=== PATIENT | male | born 1960 | race Caucasian/White ===

== ENCOUNTER 2021-05-24 12:53 | Outpatient (REF) | payer OTHER, SELFPAY ==
[2021-05-24 13:49] LABS: MANUAL DIFF FLAG NO
[2021-05-24 13:53] LABS: Basophils Percent Auto 0.4 % (0-2); Eosinophils Absolute Auto 0.1 X10*3/uL (0.0-0.4); Eosinophils Percent Auto 1.3 % (0-4); Hematocrit 36.1 % (42-52); Hemoglobin 11.7 g/dl (14.0-18.0); Imm Gran Pct Auto 1.3 % (0.0-0.4); Lymphocytes Percent Auto 25.2 % (20-40); Mean Corpuscular HGB Conc 32.4 g/dl (31.0-36.0); Mean Corpuscular Hemoglobin 28.1 pg (27.0-33.0); Mean Corpuscular Volume 86.6 fL (80-98); Mean Platelet Volume 9.9 fL (9.4-12.4); Monocytes Absolute Auto 0.7 X10*3/uL (0.1-1.2); Monocytes Percent Auto 8.9 % (2-11); Neutrophils Absolute Auto 4.9 X10*3/uL (2.0-8.3); Neutrophils Percent Auto 62.9 % (45-73); Platelet Count 362 X10*3/uL (160-400); Red Blood Count 4.17 X10*6/uL (4.60-5.80); Red Cell Distribution Width 14.1 % (11.0-16.0); White Blood Count 7.8 X10*3/uL (4.8-10.8)
[2021-05-24 14:03] LABS: Estimated Average Glucose 283 mg/dL; Hemoglobin A1c % 11.5 %
[2021-05-24 14:23] LABS: Amphetamine Screen Urine Not Detected (Not Detect); Barbiturates, Urine Not Detected (Not Detect); Benzodiazepines Screen Urine Not Detected (Not Detect); Cannabinoid Screen Urine POSITIVE (Not Detect); Cocaine Screen Urine Not Detected (Not Detect); Fentanyl, urine Not Detected (Not Detect); Opiate Screen Urine Not Detected (Not Detect); Phencyclidine Screen Urine Not Detected (Not Detect)
[2021-05-24 14:30] LABS: Alanine Aminotransferase 41 U/L (0-40); Albumin Level 3.4 g/dL (3.5-5.0); Alkaline Phosphatase 114 U/L (39-117); Anion Gap 14 (12-20); Aspartate Amino Transferase 42 U/L (5-37); Bilirubin Total 0.3 mg/dL (0.0-1.0); Blood Urea Nitrogen 37 mg/dL (9-16); Calcium 9.4 mg/dL (8.4-10.2); Carbon Dioxide 24 mmol/L (22-29); Chloride 105 mmol/L (96-108); Estimated Glomerular Filt Rate 36; Glucose Fasting 148 mg/dL (60-99); Potassium 4.8 mmol/L (3.3-5.1); Sodium 138 mmol/L (135-145); Total Protein 6.7 g/dL (6.5-8.0)
[2021-05-24 14:31] LABS: Creatinine Urine 142.43 mg/dL
[2021-05-24 14:50] LABS: TSH reflex Free T4 1.61 uIU/mL (0.32-4.0)
== END 2021-05-24 12:54 | disposition home or self-care (01) ==
LOC: HO.HMGCLDS 12:53
PROVIDERS: PCP Internal Medicine; Visit Provider Internal Medicine
DX: E11.65 Type 2 diabetes mellitus with hyperglycemia (principal); R76.8 Other specified abnormal immunological findings in serum; I10 Essential (primary) hypertension; F14.10 Cocaine abuse, uncomplicated; F17.200 Nicotine dependence, unspecified, uncomplicated
CPT/HCPCS: 80048; 80053; 80307; 82043; 83036; 84443; 85025

== ENCOUNTER 2022-12-07 00:17 | Inpatient (IN) | payer OTHER, MEDICAID, SELFPAY ==
[2022-12-07] VITALS (15 sets, daily range): BP systolic 144–220; BP diastolic 64–121; PULSE 65–104; RESP 14–28; TEMP 36.6–37.2; O2SAT 90–98; BMI 22.1; BMI 23.9
--- NOTE | 2022-12-07 | ECG_ITS ---
Test Reason : HYPERTENSION Blood Pressure : / mmHG Vent. Rate : 102 BPM Atrial Rate : 102 BPM P-R Int : 202 ms QRS Dur : 130 ms QT Int : 382 ms P-R-T Axes : 054 -40 115 degrees QTc Int : 497 ms Sinus tachycardia Left axis deviation Right bundle branch block Septal infarct , age undetermined T wave abnormality, consider lateral ischemia Abnormal ECG No previous ECGs available Referred By: Raad Adkins Electronically Signed By:VANCE SERRANO
--- NOTE | ~2022-12-07 | XR_ITS ---
EXAMINATION: XR CHEST CLINICAL INFORMATION: Shortness of breath COMPARISON: None TECHNIQUE: Frontal view of the chest was obtained. FINDINGS: Diffuse bilateral streaky and hazy airspace opacities. Trace bilateral pleural effusions, slightly larger on the left. No pneumothorax. Normal heart size. Pulmonary venous congestion. No acute osseous abnormalities. XR/XR chest 1V IMPRESSION: * Diffuse bilateral streaky and hazy airspace opacities could be compatible with an atypical pneumonitis and/or pulmonary edema * Trace bilateral pleural effusions.
--- NOTE | ~2022-12-07 | IR_ITS ---
PROCEDURE: IR INSERTION OF TUNNEL CATHETER CLINICAL INFORMATION: Renal insufficiency. Needs instant renal dialysis. COMPARISON: None. TECHNIQUE: Following explaining ultrasound fluoroscopy-guided placement of a tunneled right permacatheter procedure, benefits and risks, a written consent was obtained. Patient was placed supine and preliminary ultrasound was performed through the right anterior neck. An optimal site was selected and marked on the skin. Marked site was infiltrated with 1% lidocaine. Through a small skin wall incision an ultrasound guidance needle was inserted from the right neck through the right supraclavicular fossa into the right subclavian vein. After observing venous return a thin guidewire was advanced into the IVC through the needle. The needle was withdrawn and a 5 Vietnamese dilator was placed. The dilator and the guidewire were anchored to the skin by hemostats. 1% lidocaine was then inserted through the anterior chest wall approximately 1 gauze length away from the neck incision. A small skin incision was performed. 1% lidocaine and epinephrine was injected in combination from the anterior chest wall incision to the right neck incision. A tunneler attached to the catheter was advanced through the anterior chest wall incision and subcutaneous is tunneled with a tunneler to the right anterior neck wall incision. The entire unit was then pulled through the right anterior neck incision. The cuff and the catheter lies within the anterior chest wall subcutaneous tissue. The 5 Vietnamese dilator and guidewire was removed and a 0.035 J-wire was inserted into the IVC. The catheter was was removed. A 6.6 Vietnamese dilator with sheath was inserted over the wire. The dilator was and guidewires were removed. The blind-ending catheter was then inserted through the peel-away sheath into the SVC under fluoroscopy. Both ports of the catheter were flushed with heparinized saline. A single image was obtained documenting position of catheter in the SVC. Hemostasis was achieved at puncture site. The area was cleaned and draped in the usual sterile manner. Patient tolerated procedure extremely well. All elements of maximal sterile barrier technique followed including use of cap, mask, sterile gown, sterile gloves, a sterile full body drape and hand hygiene. Also followed skin preparation with 2% chlorhexidine for cutaneous antisepsis, and sterile ultrasound preparation with sterile gel and probe cover when applicable. FINDINGS: On preliminary ultrasound imaging there is widely patent but tortuous tubular vein. The left subclavian vein was not visualized. IR/IR cvc insert central tunnel IMPRESSION: Successful ultrasound fluoroscopy-guided placement of a right permacatheter with its tip in SVC ready for use.
--- NOTE | ~2022-12-07 | CT_ITS ---
EXAMINATION: CT ABDOMEN AND PELVIS WITHOUT CONTRAST CLINICAL INFORMATION: Acute renal failure COMPARISON: None TECHNIQUE: Multidetector volumetric imaging was performed from the superior aspect of the liver through the pubic symphysis. Sagittal and coronal reformatted images were obtained on the technologist's workstation. This CT examination was performed using dose optimization techniques as appropriate, variously including the following: *Automated exposure control *Adjustment of mA and/or kV according to patient size (this includes techniques or standardized protocols for targeted exams where dose is matched to indication/reason for exam; i.e. extremities or head) *Use of iterative reconstruction technique DLP: 505 mGy-cm FINDINGS: IMAGES THORAX: Small bilateral pleural effusions. Interstitial pulmonary edema. Anemia evident. LIVER, GALLBLADDER, AND BILIARY TREE: The liver is normal in size, shape, and attenuation. No focal hepatic lesion or biliary ductal dilatation is present. Cholelithiasis suspected. No gallbladder distention or pericholecystic inflammation. PANCREAS: Unremarkable. SPLEEN: Unremarkable. ADRENAL GLANDS: Unremarkable. KIDNEYS AND URETERS: The kidneys are normal in size, shape, and attenuation. No hydronephrosis, hydroureter, or calculi seen. No perinephric stranding. BLADDER: Unremarkable. GASTROINTESTINAL TRACT: Scattered left colonic diverticula. No evidence of diverticulitis. Normal appendix. Stomach and small bowel unremarkable. ABDOMINAL WALL: Small fat-containing umbilical hernia. Anasarca. LYMPH NODES: Normal. VASCULAR: Aorta mildly atherosclerotic but normal caliber. There is a spontaneous splenorenal shunt. PELVIC VISCERA: Unremarkable. OSSEOUS STRUCTURES: No acute or suspicious osseous abnormalities. Severe discogenic degenerative disease at L4-L5 and L5-S1 with endplate sclerosis and endplate osteophytes. CT/CT abdomen pelvis wo IV con IMPRESSION: * No urinary calculi or hydronephrosis. * Cholelithiasis. * Scattered left colonic diverticula without evidence of diverticulitis. * Anasarca with small bilateral pleural effusions and interstitial pulmonary edema. * Incidental splenorenal shunt. The liver is not frankly cirrhotic.
--- NOTE | 2022-12-07 00:24 | ED.SOB ---
HPI - SOB/Dyspnea General Chief Complaint: Dyspnea Stated Complaint: SOB for 2hours Time Seen by Provider: 12/07/22 00:24 Source: patient and EMS Mode of arrival: EMS Limitations: no limitations History of Present Illness HPI Narrative: Patient 61 years old with history of cocaine abuse( last use 9 months ago) insulin-requiring diabetic, hypertension hyperlipidemia hepatitis-C chronic renal disease was admitted at [facility] 11/05/21 discharged on 11/09/21 for altered mental status due to opiate overdose . Patient comes here for increased shortness of breath 4 hours prior to arrival patient stopped taking his medication for last 3 days. On arrival patient's blood pressure was 220/121 heart rate 104 saturating 95% on room air. No chest pain or palpitation no headache, patient has not used any drugs for last 9 months Related Data Home Medications Medication Instructions Recorded Confirmed blood sugar diagnostic #10 ea 09/21/20 06/22/21 pen needle, diabetic 32 gauge x #50 ea 09/21/20 01/03/22 1/ amlodipine 10 mg tablet 1 tab PO DAILY 12/07/22 12/07/22 aspirin 81 mg tablet,delayed 1 tab PO DAILY 12/07/22 12/07/22 release atorvastatin 40 mg tablet 1 tab PO BEDTIME 12/07/22 12/07/22 cholecalciferol (vitamin D3) 50 1 cap PO DAILY 12/07/22 12/07/22 mcg (2,000 unit) capsule famotidine 20 mg tablet 1 tab PO DAILY 12/07/22 12/07/22 gabapentin 300 mg capsule 1 cap PO BEDTIME 12/07/22 12/07/22 hydrochlorothiazide 25 mg tablet 1 tab PO DAILY 12/07/22 12/07/22 insulin aspart U-100 100 unit/mL subcut 12/07/22 (3 mL) subcutaneous pen insulin glargine 100 unit/mL (3 50 unit subcut DAILY 12/07/22 12/07/22 mL) subcutaneous pen (Lantus Solostar U-100 Insulin) mirtazapine 15 mg tablet 1 tab PO BEDTIME 12/07/22 12/07/22 Previous Rx's Medication Instructions Recorded alcohol swabs 1 pad topical .COMPLEX #200 ea 12/09/20 lancets 28 gauge #100 ea 12/09/20 pen needle, diabetic 33 gauge x #100 ea 07/23/21 5/16 (Comfort EZ Pen [place]) blood sugar diagnostic (FreeStyle #100 ea 06/16/21 Test strips) blood-glucose meter (FreeStyle #1 ea 06/17/21 Lite Meter kit) acetaminophen 500 mg tablet 500 mg PO TID PRN fever or pain 90 01/03/22 (Tylenol Extra Strength) days #90 tabs amlodipine 10 mg tablet 10 mg PO DAILY 90 days #90 tabs 01/03/22 aspirin 81 mg tablet,delayed 81 mg PO DAILY 90 days #90 tabs 01/03/22 release atorvastatin 40 mg tablet 40 mg PO BEDTIME 90 days #90 tabs 01/03/22 ferrous sulfate 325 mg (65 mg 325 mg PO DAILY 90 days #90 tabs 01/03/22 iron) tablet,delayed release gabapentin 300 mg capsule 300 mg PO BEDTIME 90 days #90 caps 01/03/22 insulin glargine 100 unit/mL (3 40 unit (0.4 mL) subcut .at 01/03/22 mL) subcutaneous pen (Lantus bedtime 90 days #15 mL Solostar U-100 Insulin) meclizine 25 mg tablet 25 mg PO BID-TID PRN dizziness 90 01/03/22 days #90 tabs quetiapine 25 mg tablet See Rx Instructions PO BEDTIME 30 01/03/22 days #90 tabs Shower chair #1 ea 01/05/22 Shower grab bars #2 ea 01/05/22 insulin aspart U-100 100 unit/mL 1 sliding scale dose subcut TID 02/14/22 (3 mL) subcutaneous pen #15 mL pen needle, diabetic 31 gauge x #100 ea 02/14/22/ (Comfort EZ Pen [place]) insulin aspart U-100 100 unit/mL 1 sliding scale dose subcut TID 90 03/01/22 subcutaneous solution (Novo days #10 mL U-100 Insulin aspart) Allergies Allergy/AdvReac Type Severity Reaction Status Date / Time No Known Allergies Allergy Verified 12/07/22 01:11 Review of Systems Review of Systems: Constitutional : No Weight loss, No Fever, No Chills ENT/Mouth : No sore throat, No Rhinorrhea Eyes: No Eye Pain, No Swelling Cardiovascular : No Chest Pain, no palpitations Respiratory : No Cough, No Sputum, ++ shortness of breath Gastrointestinal : no Nausea, No Vomiting, No Diarrhea, No abdominal Pain, no black stools Genitourinary : No Dysuria, No Urinary Frequency Musculoskeletal : No joint pain, No Myalgias, No Joint Swelling Skin : No Skin Lesions, No rash Neuro : No Weakness, No Numbness, No Dizziness, No Headache Psych : No Anxiety/Panic, No Depression Heme/Lymph: No Bruising, No Lymphadenopathy Endocrine : No Polyuria, No Polydipsia All other systems reviewed and are negative Yes all other systems are reviewed and are negative [facility] Past Medical History Medical History Cocaine abuse Diabetes 1.5, 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, chronic Hepatitis C antibody test positive Hypertension, essential Nicotine addiction Type 2 diabetes mellitus Social History Social History Household Members: None Housing: Apartment Housing Other:: fpc Do you presently have visiting nurse or other home services: Yes Alcohol intake: former Patient Tobacco Use Status: Former Tobacco user Tobacco use type: Cigarette Cigarettes Per Day: 6 Smoked in Last 30 Days: No e-Cigarette/Vaping Use: Never Used Use of substances other than those prescribed or required for medical reasons: Yes Substance Use Type: Marijuana Substance Use Frequency: Daily Last Used Substance: Days (ago) Last Used Substance Other:: yesterday last smoked marijuana Currently Displaying Signs/Symptoms of Drug Intoxication Withdrawal: No Any prior treatment program specific to substance use: No Have you been hit, kicked, punched, or otherwise hurt by someone within the past year? If so, by whom?: No Do you feel safe in your current relationship?: No Current Relationship Is there a partner from a previous relationship who is making you feel unsafe now?: No Are you made to feel afraid or neglected: No Advance Directives: No Do you have thoughts of harming others: None Do you have a plan to hurt others: No Plan Recently lost weight without trying: Unsure Eating poorly because of decreased appetite: No Nutrition Risks: No Nutritional Risk Poor oral hygiene: No Current occupational status: disabled Physical Exam Vital Signs: Vital Signs: Last Vital Signs Temp 98.1 F 12/07/22 04:00 Pulse 73 12/07/22 04:00 Resp 20 12/07/22 04:00 BP 192/97 H 12/07/22 04:00 Pulse Ox 97 12/07/22 04:00 O2 Del Method 12/07/22 04:00 O2 Flow Rate 1 12/07/22 02:24 BMI result Body Mass Index 22.1 Appearance: Alert. Oriented X3. No acute distress. Eyes: PERRLA, No Nystagmus pallor++ ENT: Pharynx normal. Oral Mucosa moist Neck: Normal inspection. Neck supple. CVS: Normal heart rate and rhythm. Pulses normal. Respiratory: No respiratory distress. Equal air entry bilateral, bilateral rhonchi with crackles at bases Abdomen: Soft and nontender. Bowel sounds are present, no mass palpable, no CVA tenderness Skin: Skin warm and dry. Normal skin color. Normal skin turgor. Extremities: No lower extremity edema. No calf tenderness Neuro: Oriented X 3. No motor deficit. No sensory deficit.No cerebellar signs , cranial nerves II-XII intact Medications Administered Generic Name Dose Route Start Last Admin Trade Name Freq PRN Reason Stop Dose Admin Heparin Sodium (Porcine) 5,000 unit 12/07/22 06:00 12/07/22 04:45 Heparin Sodium,Porcine 5,000 Unit/Ml Vial SUBCUT 5,000 unit Q8H PHILL Administration Labetalol HCl 10 mg 12/07/22 02:37 12/07/22 02:46 Labetalol Hcl 100 Mg/20 Ml Vial IVPUSH 10 mg Q4H PRN Administration BP>170/90 Discontinued Medications Generic Name Dose Route Start Last Admin Trade Name Freq PRN Reason Stop Dose Admin Furosemide 40 mg 12/07/22 00:41 12/07/22 00:48 Furosemide 40 Mg/4 Ml Vial IVPUSH 12/07/22 00:42 40 mg ONCE ONE Administration Protocol Furosemide 60 mg 12/07/22 01:42 12/07/22 01:55 Furosemide 100 Mg/10 Ml Vial IVPUSH 12/07/22 01:43 60 mg ONCE ONE Administration Protocol Labetalol HCl 20 mg 12/07/22 00:39 12/07/22 00:55 Labetalol Hcl 100 Mg/20 Ml Vial IVPUSH 12/07/22 00:40 20 mg ONCE ONE Administration Sodium Bicarbonate 50 meq 12/07/22 01:44 12/07/22 02:04 Sodium Bicarbonate 8.4% 50 Meq/50 Ml Syringe IVPUSH 12/07/22 01:45 50 meq ONCE ONE Administration Medical Decision Making Medical Decision Making [facility] Narrative: Patient with accelerated hypertension with INO on history of CKD noncompliant to his medications came here for acute shortness of breath clinically with pulmonary edema blood pressure improved after IV labetalol and IV Lasix patient urinated in the ER will admit for further workup Differential Diagnosis INO/CKD/pulmonary edema/pneumonia/anemia/ACS Consult Healthcare Provider Management of the patient was discussed with: Hospitalist Lab Data [facility] Lab Attestation statement: I reviewed the patient's lab results. 12/07/22 00:37 12/07/22 00:37 Labs: Lab Results 12/07/22 12/07/22 12/07/22 Range/Units 00:37 00:37 00:37 WBC 9.0 (4.8-10.8) X10*3/uL RBC 3.65 L (4.60-5.80) X10*6/uL Hgb 10.4 L (14.0-18.0) g/dl Hct 31.9 L (42.0-52.0) % MCV 87.4 (80.0-98.0) fL MCH 28.5 (27.0-33.0) pg MCHC 32.6 (31.0-36.0) g/dl RDW 16.7 H (11.0-16.0) % Plt Count 305 (160-400) X10*3/uL MPV 9.9 (9.4-12.4) fL Immature Gran % (Auto) 0.8 H (0.0-0.4) % Neut % (Auto) 63.8 (45-73) % Lymph % (Auto) 24.6 (20-40) % Chase % (Auto) 8.2 (2-11) % Eos % (Auto) 2.3 (0-4) % Baso % (Auto) 0.3 (0-2) % Lymph # (Auto) 2.2 (1.2-4.9) X10*3/uL Chase # (Auto) 0.7 (0.1-1.2) X10*3/uL Eos # (Auto) 0.2 (0.0-0.4) X10*3/uL Baso # (Auto) 0.0 (0.0-0.2) X10*3/uL Abs Immat Gran (auto) 0.07 H (0.00-0.03) X10*3/uL Absolute Neuts (auto) 5.7 (2.0-8.3) x10*3/uL Absolute Nucleated RBC 0.000 (0.0-0.012) X10*3/uL Nucleated RBC % (auto) 0.0 (0.0-0.2) /100WBC PT (10.0-13.1) SEC INR (0.9-1.1) APTT (26.0-36.4) SEC Sodium 139 (135-145) mmol/L Potassium 5.4 H (3.3-5.1) mmol/L Chloride 112 H (96-108) mmol/L Carbon Dioxide 15 L (22-29) mmol/L Anion Gap 17 (12-20) BUN 64 H (9-16) mg/dL Creatinine 10.12 H* (0.5-1.4) mg/dL Estim Creat Clear Calc 7.1 Estimated GFR 5 Random Glucose 166 H (60-115) mg/dL Calcium 7.8 L D (8.4-10.2) mg/dL Total Bilirubin 0.4 (0.0-1.0) mg/dL AST 22 (5-37) U/L ALT 17 (0-40) U/L Alkaline Phosphatase 134 H (39-117) U/L Troponin I High Sens (<3.5-35.0) ng/L B-Natriuretic Peptide (<100) pg/mL Total Protein 5.8 L (6.5-8.0) g/dL Albumin 2.5 L (3.5-5.0) g/dL Influenza Type A (PCR) NEGATIVE (Negative) Influenza Type B (PCR) NEGATIVE (Negative) RSV RNA Qual (PCR) NEGATIVE (Negative) SARS-CoV-2 RNA (RT-PCR) NEGATIVE (Negative) 12/07/22 12/07/22 12/07/22 Range/Units 00:40 00:40 00:40 WBC (4.8-10.8) X10*3/uL RBC (4.60-5.80) X10*6/uL Hgb (14.0-18.0) g/dl Hct (42.0-52.0) % MCV (80.0-98.0) fL MCH (27.0-33.0) pg MCHC (31.0-36.0) g/dl RDW (11.0-16.0) % Plt Count (160-400) X10*3/uL MPV (9.4-12.4) fL Immature Gran % (Auto) (0.0-0.4) % Neut % (Auto) (45-73) % Lymph % (Auto) (20-40) % Chase % (Auto) (2-11) % Eos % (Auto) (0-4) % Baso % (Auto) (0-2) % Lymph # (Auto) (1.2-4.9) X10*3/uL Chase # (Auto) (0.1-1.2) X10*3/uL Eos # (Auto) (0.0-0.4) X10*3/uL Baso # (Auto) (0.0-0.2) X10*3/uL Abs Immat Gran (auto) (0.00-0.03) X10*3/uL Absolute Neuts (auto) (2.0-8.3) x10*3/uL Absolute Nucleated RBC (0.0-0.012) X10*3/uL Nucleated RBC % (auto) (0.0-0.2) /100WBC PT 9.4 L (10.0-13.1) SEC INR 0.8 L (0.9-1.1) APTT 34.0 (26.0-36.4) SEC Sodium (135-145) mmol/L Potassium (3.3-5.1) mmol/L Chloride (96-108) mmol/L Carbon Dioxide (22-29) mmol/L Anion Gap (12-20) BUN (9-16) mg/dL Creatinine (0.5-1.4) mg/dL Estim Creat Clear Calc Estimated GFR Random Glucose (60-115) mg/dL Calcium (8.4-10.2) mg/dL Total Bilirubin (0.0-1.0) mg/dL AST (5-37) U/L ALT (0-40) U/L Alkaline Phosphatase (39-117) U/L Troponin I High Sens 43.7 H (<3.5-35.0) ng/L B-Natriuretic Peptide 2900 H (<100) pg/mL Total Protein (6.5-8.0) g/dL Albumin (3.5-5.0) g/dL Influenza Type A (PCR) (Negative) Influenza Type B (PCR) (Negative) RSV RNA Qual (PCR) (Negative) SARS-CoV-2 RNA (RT-PCR) (Negative) Independent Interpretation I performed an independent interpretation of an: EKG Interpretation: Sinus tachycardia heart rate 102 beats per minute with left axis deviation right bundle-branch block poor progression of R waves T inversion in 1 and aVL External Record Review External record reviewed: Inpatient record Admitted to [facility] 11/05-11/09 with INO/88 creatinine of 2.4 on 11/09/2021 with history of opiate overdose Critical Care Time Critical Care Time Critical Care Time: Yes Total Critical Care Time: 65 Attestation: The patient was critically ill with a high probability of imminent or life threatening deterioration. I spent greater than 70 minutes of discontinuous time evaluating the patient,delivering critical care at the bedside, discussing and evaluating pertinent data with consultants. Critical care time does not include time spent performing separately billable procedures or teaching. Total time spent performing critical care was 65 minutes. Discharge Plan Discharge Clinical Impression: Acute renal failure, Congestive heart failure, Metabolic acidosis, Accelerated essential hypertension Patient Disposition: Admitted As Inpatient Interventions: Admission Worksheet (ED) Last Done: 12/07/22 04:04 Discharge Date/Time: 12/07/22 04:07
[2022-12-07 00:45] LABS: Basophils Percent Auto 0.3 % (0-2); Eosinophils Absolute Auto 0.2 X10*3/uL (0.0-0.4); Eosinophils Percent Auto 2.3 % (0-4); Hematocrit 31.9 % (42.0-52.0); Hemoglobin 10.4 g/dl (14.0-18.0); Imm Gran Abs Auto 0.07 X10*3/uL (0.00-0.03); Imm Gran Pct Auto 0.8 % (0.0-0.4); Lymphocytes Absolute Auto 2.2 X10*3/uL (1.2-4.9); Lymphocytes Percent Auto 24.6 % (20-40); MANUAL DIFF FLAG NO; Mean Corpuscular HGB Conc 32.6 g/dl (31.0-36.0); Mean Corpuscular Hemoglobin 28.5 pg (27.0-33.0); Mean Corpuscular Volume 87.4 fL (80.0-98.0); Mean Platelet Volume 9.9 fL (9.4-12.4); Monocytes Absolute Auto 0.7 X10*3/uL (0.1-1.2); Monocytes Percent Auto 8.2 % (2-11); Neutrophils Absolute Auto 5.7 x10*3/uL (2.0-8.3); Neutrophils Percent Auto 63.8 % (45-73); Platelet Count 305 X10*3/uL (160-400); Red Blood Count 3.65 X10*6/uL (4.60-5.80); Red Cell Distribution Width 16.7 % (11.0-16.0)
[2022-12-07] MEDS: Furosemide 40 MG/4 ML VIAL IVPUSH (00:48)
[2022-12-07 00:53] LABS: INTERNATIONAL NORM RATIO 0.8 (0.9-1.1); Prothrombin Time 9.4 SEC (10.0-13.1)
[2022-12-07] MEDS: Labetalol HCL 100 MG/20 ML VIAL 20 MG IVPUSH (00:55)
[2022-12-07 01:06] LABS: B Type Natriuretic Peptide 2900 pg/mL (<100)
[2022-12-07 01:09] LABS: Troponin-I High Sensitivity 43.7 ng/L (<3.5-35.0)
[2022-12-07 01:16] LABS: Alanine Aminotransferase 17 U/L (0-40); Albumin Level 2.5 g/dL (3.5-5.0); Alkaline Phosphatase 134 U/L (39-117); Anion Gap 17 (12-20); Aspartate Amino Transferase 22 U/L (5-37); Bilirubin Total 0.4 mg/dL (0.0-1.0); Blood Urea Nitrogen 64 mg/dL (9-16); Calcium 7.8 mg/dL (8.4-10.2); Carbon Dioxide 15 mmol/L (22-29); Chloride 112 mmol/L (96-108); Creatinine Clr Calc Pharmacy 7.1; Estimated Glomerular Filt Rate 5; Glucose Random 166 mg/dL (60-115); Potassium 5.4 mmol/L (3.3-5.1); Sodium 139 mmol/L (135-145); Total Protein 5.8 g/dL (6.5-8.0)
--- NOTE | 2022-12-07 01:27 | PC.NURSE ---
Addendum entered by Angella Llanes 12/07/22 04:07: Pt on RA sat o2 96%. Original Note: Pt A&Ox4, denies any pain. Pt reports increase SOB since 8pm last night, worsening with exertion. ABD accessory muscle use noted. Lung expansion equal, mouth breathing. Pt reports productive cough. Lung sounds fine crackles with some wheezing noted bilaterally. Pt placed on monitor, EKG obtained. IV line started, blood work collected and sent to lab. Placed on 1L via NC, sat o2 94-96%. Skin warm and dry.
[2022-12-07 01:46] LABS: Influenza A PCR NEGATIVE (Negative); Influenza B PCR NEGATIVE (Negative); Resp Syncy Virus RNA Qual PCR NEGATIVE (Negative); SARS COV2 PCR INHOUSE NEGATIVE (Negative)
[2022-12-07] MEDS: Furosemide 100 MG/10 ML VIAL 60 MG IVPUSH (01:55)
[2022-12-07] MEDS: Sodium Bicarbonate 8.4% 50 MEQ/50 ML SYRINGE IVPUSH (02:04)
[2022-12-07 02:33] LABS: Appearance Urine Cloudy; Color Urine Yellow; Glucose Urine UA 500 mg/dL (Negative); Leukocyte Esterase Urine Negative (Negative); Nitrite Urine Negative (Negative); Specific Gravity - Urine 1.015 (1.005-1.025); UMIC TRIGGER UACC YES; Urine Blood Small (1+) (Negative); Urine Ketones Negative (Negative); Urine Protein >=1000 (4+) mg/dL (Neg-Trace)
[2022-12-07] MEDS: Labetalol HCL 100 MG/20 ML VIAL 10 MG IVPUSH ×2 (02:46→11:40)
[2022-12-07 03:01] LABS: Bacteria Urine Trace (None Seen); WBC Urine 0-5 /HPF (0-5)
--- NOTE | 2022-12-07 03:06 | P.HPHOSP_ITS ---
History of Present Illness Date of Service: 12/07/22 Chief Complaint: SOB 62-year-old male with a past medical history of hypertension, hyperlipidemia, diabetes, polysubstance abuse, history of hep C, CKD into the hospital today with a chief complaint of shortness of breath. Patient mentioned that for the past couple days he has been having shortness of breath especially on exertion. Also has orthopnea. Denies any chest pain or palpitations. Denies any fever chills cough or sputum production. Mentioned that he had recently seen the primary care and had blood work done and noted to have worsening kidney function and was suggested he might need dialysis but he mentions that he does not to want to go for dialysis. Currently denies any abdominal pain nausea vomiting or diarrhea. Mentioned that he still makes urine. Denies any headaches numbness tingling. Patient denies any leg pains or falls. Review of all other systems is negative except mentioned above ER course: Per ER team, patient noted to have significantly short of breath, placed on supplemental oxygen, not in respiratory distress. Breathing comfortably on speaks in full sentences. Noted to have bilateral crackles concerning for fluid overload. Patient was given Lasix in the ER. On labs noted to have elevated creatinine of 10 compared to prior values of creatinine 1.9 about 2 years ago; but patient does report that he had recent work blood work at [facility] with worsening kidney function. Also noted a mild acidosis with a serum bicarb of 15; patient was given bicarb 1 ampule in the ER. 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, chronic Hepatitis C antibody test positive Hypertension, essential Nicotine addiction Type 2 diabetes mellitus Social History Housing: Homeless Housing Other:: snf Alcohol intake: former Patient Tobacco Use Status: Former Tobacco user Tobacco use type: Cigarette Cigarettes Per Day: 6 Smoked in Last 30 Days: No e-Cigarette/Vaping Use: Never Used Use of substances other than those prescribed or required for medical reasons: Yes Substance Use Type: Marijuana Substance Use Frequency: Daily Advance Directives: No Nutrition Risks: No Nutritional Risk Current occupational status: disabled Meds Allergies Allergy/AdvReac Type Severity Reaction Status Date / Time No Known Allergies Allergy Verified 12/07/22 01:11 Active Medications: Current Medications Acetaminophen (Acetaminophen 325 Mg Tablet) 650 mg PO Q6H PRN PRN Reason: Pain, Mild (Pain Scale 1-3) Amlodipine Besylate (Amlodipine Besylate 10 Mg Tablet) 10 mg PO DAILY [facility]; Protocol Aspirin (Aspirin 81 Mg Tab.Chew) 81 mg PO DAILY [facility] Atorvastatin Calcium (Atorvastatin Calcium 40 Mg Tablet) 40 mg PO BEDTIME [facility] Glucose (Glucose Gel 15 Gm Gel..Gram.) 15 gm PO Q15M PRN; Protocol PRN Reason: per Hypoglycemia Standing Ord. Heparin Sodium (Porcine) (Heparin Sodium,Porcine 5,000 Unit/Ml Vial) 5,000 unit SUBCUT Q8H [facility] Dextrose (D10) 250 mls @ 750 mls/hr IV Q15M PRN; Protocol PRN Reason: per Hypoglycemia Standing Ord. Insulin Human Lispro (Insulin Lispro 100 Unit/Ml 3 Ml Vial) 0 unit SUBCUT QIDACHS [facility]; Protocol Labetalol HCl (Labetalol Hcl 100 Mg/20 Ml Vial) 10 mg IVPUSH Q4H PRN PRN Reason: BP>170/90 Last Admin: 12/07/22 02:46 Dose: 10 mg Melatonin (Melatonin 3 Mg Tablet) 6 mg PO BEDTIME PRN PRN Reason: Insomnia Senna (Sennosides 8.6 Mg Tablet) 17.2 mg PO BEDTIME PRN PRN Reason: Constipation Sodium Bicarbonate (Sodium Bicarbonate 650 Mg Tablet) 650 mg PO BID [facility] Sodium Chloride (0.9 % Sodium Chloride Flush 3 Ml Syringe) 3 ml IVFLUSH QSHIFT [facility] Home Medications Medication Instructions Recorded Confirmed Last Taken Type blood sugar diagnostic #10 ea 09/21/20 06/22/21 Unknown History pen needle, diabetic 32 gauge x #50 ea 09/21/20 01/03/22 Unknown History 1/4 amlodipine 10 mg tablet 1 tab PO DAILY 12/07/22 12/07/22 Unknown History aspirin 81 mg tablet,delayed 1 tab PO DAILY 12/07/22 12/07/22 Unknown History release atorvastatin 40 mg tablet 1 tab PO BEDTIME 12/07/22 12/07/22 Unknown History cholecalciferol (vitamin D3) 50 1 cap PO DAILY 12/07/22 12/07/22 Unknown History mcg (2,000 unit) capsule famotidine 20 mg tablet 1 tab PO DAILY 12/07/22 12/07/22 Unknown History gabapentin 300 mg capsule 1 cap PO BEDTIME 12/07/22 12/07/22 Unknown History hydrochlorothiazide 25 mg tablet 1 tab PO DAILY 12/07/22 12/07/22 Unknown History insulin aspart U-100 100 unit/mL subcut 12/07/22 Unknown History (3 mL) subcutaneous pen insulin glargine 100 unit/mL (3 50 unit subcut DAILY 12/07/22 12/07/22 Unknown History mL) subcutaneous pen (Lantus Solostar U-100 Insulin) mirtazapine 15 mg tablet 1 tab PO BEDTIME 12/07/22 12/07/22 Unknown History Physical Exam Vital Signs and Narrative: Vital Signs: Last Vital Signs Temp 98.0 F 12/07/22 02:24 Pulse 70 12/07/22 02:57 Resp 16 12/07/22 02:57 BP 168/95 H 12/07/22 02:57 Pulse Ox 96 12/07/22 02:57 O2 Del Method 12/07/22 02:57 O2 Flow Rate 1 12/07/22 02:24 BMI result Body Mass Index 22.1 Gen: Appears be in no acute distress on supplemental oxygen/speaks in full sentences HEENT: NCAT, Moist mucosa. Pulmonary: Coarse breath sounds/crackles present CVS: Normal S1-S2 Abdomen: BS+, Soft, Nontender Extremities: Warm well perfused; mild pulmonary edema present Neuro: Alert and awake. Results Labs 12/07/22 00:37 12/07/22 00:37 Labs: Laboratory Results - last 24 hr 12/07/22 12/07/22 12/07/22 00:37 00:37 00:37 MCV 87.4 MCH 28.5 MCHC 32.6 RDW 16.7 H Plt Count 305 MPV 9.9 Immature Gran % (Auto) 0.8 H Neut % (Auto) 63.8 Lymph % (Auto) 24.6 [place] % (Auto) 8.2 Eos % (Auto) 2.3 Baso % (Auto) 0.3 Lymph # (Auto) 2.2 [place] # (Auto) 0.7 Eos # (Auto) 0.2 Baso # (Auto) 0.0 Abs Immat Gran (auto) 0.07 H Absolute Neuts (auto) 5.7 Absolute Nucleated RBC 0.000 Nucleated RBC % (auto) 0.0 PT INR APTT Anion Gap 17 Estim Creat Clear Calc 7.1 Estimated GFR 5 Random Glucose 166 H Calcium 7.8 L D Total Bilirubin 0.4 AST 22 ALT 17 Alkaline Phosphatase 134 H Troponin I High Sens B-Natriuretic Peptide Total Protein 5.8 L Albumin 2.5 L Urine Color Urine Appearance Urine pH Ur Specific [place] Urine Protein Urine Glucose (UA) Urine Ketones Urine Blood Urine Nitrite Ur Leukocyte Esterase Urine RBC Urine WBC Ur Squamous Epith Cells Urine Bacteria Hyaline Casts Influenza Type A (PCR) NEGATIVE Influenza Type B (PCR) NEGATIVE RSV RNA Qual (PCR) NEGATIVE SARS-CoV-2 RNA (RT-PCR) NEGATIVE 12/07/22 12/07/22 12/07/22 00:40 00:40 00:40 MCV MCH MCHC RDW Plt Count MPV Immature Gran % (Auto) Neut % (Auto) Lymph % (Auto) [place] % (Auto) Eos % (Auto) Baso % (Auto) Lymph # (Auto) [place] # (Auto) Eos # (Auto) Baso # (Auto) Abs Immat Gran (auto) Absolute Neuts (auto) Absolute Nucleated RBC Nucleated RBC % (auto) PT 9.4 L INR 0.8 L APTT 34.0 Anion Gap Estim Creat Clear Calc Estimated GFR Random Glucose Calcium Total Bilirubin AST ALT Alkaline Phosphatase Troponin I High Sens 43.7 H B-Natriuretic Peptide 2900 H Total Protein Albumin Urine Color Urine Appearance Urine pH Ur Specific [place] Urine Protein Urine Glucose (UA) Urine Ketones Urine Blood Urine Nitrite Ur Leukocyte Esterase Urine RBC Urine WBC Ur Squamous Epith Cells Urine Bacteria Hyaline Casts Influenza Type A (PCR) Influenza Type B (PCR) RSV RNA Qual (PCR) SARS-CoV-2 RNA (RT-PCR) 12/07/22 02:25 MCV MCH MCHC RDW Plt Count MPV Immature Gran % (Auto) Neut % (Auto) Lymph % (Auto) [place] % (Auto) Eos % (Auto) Baso % (Auto) Lymph # (Auto) [place] # (Auto) Eos # (Auto) Baso # (Auto) Abs Immat Gran (auto) Absolute Neuts (auto) Absolute Nucleated RBC Nucleated RBC % (auto) PT INR APTT Anion Gap Estim Creat Clear Calc Estimated GFR Random Glucose Calcium Total Bilirubin AST ALT Alkaline Phosphatase Troponin I High Sens B-Natriuretic Peptide Total Protein Albumin Urine Color Yellow Urine Appearance Cloudy Urine pH 6.0 Ur Specific [place] 1.015 Urine Protein >=1000 (4+) H Urine Glucose (UA) 500 H Urine Ketones Negative Urine Blood Small (1+) H Urine Nitrite Negative Ur Leukocyte Esterase Negative Urine RBC 3-5 H Urine WBC 0-5 Ur Squamous Epith Cells 3-5 Urine Bacteria Trace Hyaline Casts 3-5 Influenza Type A (PCR) Influenza Type B (PCR) RSV RNA Qual (PCR) SARS-CoV-2 RNA (RT-PCR) Imaging Radiologist's Impressions: Impressions Chest X-Ray 12/07/22 01:15 IMPRESSION: * Diffuse bilateral streaky and hazy airspace opacities could be compatible with an atypical pneumonitis and/or pulmonary edema * Trace bilateral pleural effusions. Assessment and Plan (1) Acute renal failure: Status: Acute (2) Congestive heart failure: Status: Acute Plan 62-year-old male with a past medical history of hypertension, hyperlipidemia, diabetes, polysubstance abuse, history of hep C, CKD into the hospital today with a chief complaint of shortness of breath. Admitted for following Shortness of breath: In the setting of fluid overload secondary to worsening renal insufficiency/question CHF ProBNP elevated to 2900 Echocardiogram Monitor I's and O's and daily weights Initial troponin 43.7-likely in setting of reduced clearance from renal insufficiency. Patient denies any chest pain. EKG nonischemic Will repeat troponin INO on CKD/metabolic acidosis: Unknown recent baseline creatinine. Creatinine was 1.9 about 2 years ago. Creatinine on presentation is 10 Avoid nephrotoxins Nephrology consult for further recommendations. Patient does not want to go for hemodialysis. Hypertensive urgency: Patient mentioned that he has been not taking his home medications for the past couple days. In the ER patient's blood pressure on presentation noted to be 220/121. Received IV labetalol with improvement in blood pressure to 170s systolic. Continue home amlodipine 10 mg Labetalol p.r.n. Diabetes: Will keep the patient on insulin sliding scale. Monitor fingerstick glucose and adjust as needed. Will hold off on the long-acting insulin for now given severe renal insufficiency. DVTppx: SQH DNR/DNI: Discussed in detail with the patient and he wants to be DNR/DNI Time Spent With Patient Time: Total time managing care of this patient today ____ minutes. Quality Stroke Does the patient have a stroke diagnosis?: No VTE Prior VTE?: No VTE Risk Level:: Medical - moderate - high VTE Device Contraindication: Treatment Not Indicated VTE Drug Contraindication: N/A - Med Ordered
--- NOTE | 2022-12-07 04:03 | PC.NURSE ---
RN to RN report given to Linda. Pt will be transported to room 459 by irrigation service technician. Pt aware of plan.
[2022-12-07] MEDS: Heparin Sodium,Porcine 5,000 UNIT/ML VIAL 5000 UNIT SUBCUT ×3 (04:45→20:16)
[2022-12-07 05:17] LABS: Troponin-I High Sensitivity 71.9 ng/L (<3.5-35.0)
[2022-12-07 05:18] LABS: Alanine Aminotransferase 15 U/L (0-40); Albumin Level 2.3 g/dL (3.5-5.0); Alkaline Phosphatase 119 U/L (39-117); Anion Gap 15 (12-20); Aspartate Amino Transferase 18 U/L (5-37); Bilirubin Total 0.4 mg/dL (0.0-1.0); Blood Urea Nitrogen 63 mg/dL (9-16); Calcium 7.8 mg/dL (8.4-10.2); Carbon Dioxide 18 mmol/L (22-29); Chloride 112 mmol/L (96-108); Creatinine Clr Calc Pharmacy 7.4; Estimated Glomerular Filt Rate 5; Glucose Random 158 mg/dL (60-115); Potassium 5.4 mmol/L (3.3-5.1); Sodium 140 mmol/L (135-145); Total Protein 5.3 g/dL (6.5-8.0)
--- NOTE | 2022-12-07 07:00 | CA_ITS ---
Transthoracic Echocardiogram Patient (Last, First, Middle): Josh Markham, Gender: Male Date of : 1960 Age: 62 Procedure Date: 12/07/2022 Procedure Type: Transthoracic Echocardiogram Location: [facility] Height: 175.26 cm Weight: 73.48 kg BSA: 1.89 m2 Heart Rate: 68 bpm BP: 192 / 97 mmHg Director Of Home Economics: SB Referring MD: Norris Caballero MD Symptoms: chf Study Quality: Adequate ECG Rhythm: Sinus Conclusions: - The left ventricular systolic function is moderately decreased. The visually estimated ejection fraction is between 35-40%. - There is moderately increased left ventricular wall thickness. - No obvious valvular pathology seen on this study. Findings Left Ventricle Normal left ventricular cavity size. There is moderately increased left ventricular wall thickness. The left ventricular systolic function is moderately decreased. The visually estimated ejection fraction is between 35 40%. There is moderate global hypokinesis. E/E prime ratio is >15, consistent with elevated filling pressures. Evidence suggests grade I (mild) diastolic dysfunction. There is severe septal asymmetric hypertrophy. LV peak GLS -11.1%. Right Ventricle Normal right ventricular cavity size and systolic function. Atria The left atrium is mildly dilated. The right atrium is normal in size. Aortic Valve There is a normal trileaflet aortic valve. There is mild calcification of the aortic valve. There is no aortic valve stenosis. There is mild aortic valve regurgitation. Mitral Valve The mitral valve appears normal. There is mild mitral valve regurgitation. There is no mitral valve stenosis. Pulmonic Valve The pulmonic valve is likely normal. Tricuspid Valve Normal tricuspid valve structure. There is trace tricuspid valve regurgitation. Tricuspid regurgitation envelope is inadequate for calculation of right ventricular systolic pressure. Great Vessels The asc aorta is normal in size. Venous The inferior vena cava is normal in size and collapses greater than 50% with inspiration. Pericardium/Pleural There is no evidence of pericardial effusion. Prior Study Comparison No prior study available for comparison. Recommendations, Care & Conclusions No obvious valvular pathology seen on this study. Measurements 2D Linear Measurements IVSd: 1.84 0.6-0.9/0.6-1.0 cm LVIDd: 5.44 3.9-5.3/4.2-5.9 cm LVIDd Index: 2.88 2.4-3.2/2.2-3.1 cm/m2 LVIDs: 4.60 2.0-3.6 cm LVPWd: 1.34 0.7-1.1 cm LA Diam: 4.00 2.7-3.8/3.0-4.0 cm LAIDs Index: 2.12 1.5-2.3 cm/m2 LV Mass: 498.70 67-162/88-224 g LV Mass Index: 263.86 43-95/49-115 g/m2 LVOT Diam: 2.30 3.0+(-)1.3 cm 2D Systolic Function EF 4C: 42.50 >55% EF 2C: 42.70 >55% EF BiP: 42.00 >55% Mitral Valve MV Pk E: 0.71 MV PK A: 0.89 MV Decel Time: 222.00 E/A: 0.80 E'Lateral: 4.57 E'Medial: 4.90 E/E' Med: 14.50 E/E' Lat: 15.60 PHT: 65.00 MVA PHT: 3.38 Decel Glasscock: 3.20 Aortic Valve AoV Pk Kenny: 1.30 AoV Pk Grad: 7.00 LYNDSEY: 3.40 LVOT LVOT Pk Kenny: 1.07 LVOT Mn Kenny: 0.65 LVOT VTI: 0.21 LVOT Pk Grad: 5.00 LVOT Mn Grad: 2.00 LVOT Diam: 2.30 LVOT Area: 4.15 Diastolic Function MV Pk E: 0.71 MV Pk A: 0.89 E/A: 0.80 E'Medial: 4.90 E/E' Med: 14.50 E' Laterial: 4.57 E/E' Lat: 15.60 Right Ventricle TAPSE (mm): 25.70 TVS' Kenny: 12.30 Tricuspid Valve RA Press: 3.00 Great Vessels Aorta Sinus of Valsalva: 3.30 2.0-3.5 cm Ao Asc: 3.80 2.1-3.4 cm Pulmonary Veins Pulm Vein S/D 1.00 Pulmonary Valve PV Pk Kenny: 1.13 Peak PV Grad: 5.00 Updated in Other Vendor System with Status of Final Anand Coronel MD electronically signed on 12/07/2022 1:08:35 PM with status of Final
[2022-12-07 07:23] LABS: Glucose, Whole Blood 141 mg/dL (60-115)
[2022-12-07] MEDS: Aspirin 81 MG TAB.CHEW PO (07:49)
[2022-12-07] MEDS: Sodium Zirconium Cyclosilicate 10 GM POWD.PACK PO (07:49)
[2022-12-07] MEDS: amLODIPine Besylate 10 MG TABLET PO (07:49)
[2022-12-07] MEDS: Sodium Bicarbonate 650 MG TABLET PO ×2 (07:51→20:16)
[2022-12-07] MEDS: 0.9 % Sodium Chloride Flush 3 ML SYRINGE IVFLUSH ×3 (07:51→20:17)
--- NOTE | 2022-12-07 07:58 | PHA.MEDREC ---
Pharmacy Consult ? Medication Reconciliation Pharmacy has completed the medication reconciliation. Patient said he has no idea what he takes and to just call [facility].
--- NOTE | 2022-12-07 10:17 | P.CONCA_ITS ---
History of Present Illness History of Present Illness Date of Service: 12/07/22 Chief complaint: INO Narrative: This is a cardiology consultation regarding shortness of breat. Patient with multiple medical comorbidities including hypertension, diabetes, dyslipidemia, substance abuse, hepatitis-C, chronic kidney disease. He has been having shortness of breath with exertion orthopnea. No anginal-type complaints. Also, his creatinine has been markedly high compared to before. It seems that he has been advised dialysis possibly but apparently patient does not want any dialysis. He denies any cardiac complaints like coronary disease or myocardial infarction or cardiomyopathy in the past. Review of Systems Review of Systems: Yes all other systems are reviewed and are negative Constitutional: Constitutional: Reports as per HPI and Reports no additional constitutional complaints Eyes: Eyes: Reports as per HPI and Denies no additional eye complaints ENT: Denies system reviewed and no additional complaints, except as documented and Reports as per HPI Cardiovascular: Cardiovascular: Reports as per HPI, Reports no additional cardiovascular complaints, Denies acrocyanosis, Denies cool extremities, Denies chest pain, Denies leg edema, Denies lightheadedness, Denies palpitations and Reports dyspnea Respiratory: Respiratory: Reports as per HPI, Denies no additional respiratory complaints and Reports dyspnea Gastrointestinal: Gastrointestinal: Reports as per HPI and Denies no additional gastrointestinal complaints Genitourinary: Genitourinary: Reports no additional male genitourinary complaints and Reports as per HPI Musculoskeletal: Musculoskeletal: Reports no additional musculoskeletal complaints and Reports as per HPI Integumentary/Breasts: Skin/Breast: Reports system reviewed and no additional complaints, except as docu Neurologic: Reports system reviewed and no additional complaints, except as documented and Reports as per HPI Psychiatric: Psychiatric: Reports no additional psychiatric complaints and Reports as per HPI Endocrine: Endocrine: Reports no additional endocrine complaints, Reports as per HPI and Denies palpitations Hematologic/Lymphatic: Hematologic/Lymphatic: Reports no additional hematologic/lymphatic complaints and Reports as per HPI Allergic/Immunologic: Allergic/Immunologic: Reports no additional allergic/immunologic complaints and Reports as per HPI [facility] Past Medical History Medical History Cocaine abuse Diabetes 1.5, 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, chronic Hepatitis C antibody test positive Hypertension, essential Nicotine addiction Type 2 diabetes mellitus Family History Family History (Updated 03/09/23 @ 10:19 by Anand Coronel MD) Mother Cancer Social History Social History Household Members: None Housing: Apartment Housing Other:: detention Do you presently have visiting nurse or other home services: Yes Alcohol intake: former Patient Tobacco Use Status: Former Tobacco user Tobacco use type: Cigarette Cigarettes Per Day: 6 Smoked in Last 30 Days: No e-Cigarette/Vaping Use: Never Used Use of substances other than those prescribed or required for medical reasons: Yes Substance Use Type: Marijuana Substance Use Frequency: Daily Last Used Substance: Days (ago) Last Used Substance Other:: yesterday last smoked marijuana Currently Displaying Signs/Symptoms of Drug Intoxication Withdrawal: No Any prior treatment program specific to substance use: No Have you been hit, kicked, punched, or otherwise hurt by someone within the past year? If so, by whom?: No Do you feel safe in your current relationship?: No Current Relationship Is there a partner from a previous relationship who is making you feel unsafe now?: No Are you made to feel afraid or neglected: No Advance Directives: No Do you have thoughts of harming others: None Do you have a plan to hurt others: No Plan Recently lost weight without trying: Unsure Eating poorly because of decreased appetite: No Nutrition Risks: No Nutritional Risk Poor oral hygiene: No Current occupational status: disabled Meds Allergies Allergy/AdvReac Type Severity Reaction Status Date / Time No Known Allergies Allergy Verified 12/07/22 01:11 Active Medications: Current Medications Acetaminophen (Acetaminophen 325 Mg Tablet) 650 mg PO Q6H PRN PRN Reason: Pain, Mild (Pain Scale 1-3) Amlodipine Besylate (Amlodipine Besylate 10 Mg Tablet) 10 mg PO DAILY [facility]; Protocol Last Admin: 12/07/22 07:49 Dose: 10 mg Aspirin (Aspirin 81 Mg Tab.Chew) 81 mg PO DAILY [facility] Last Admin: 12/07/22 07:49 Dose: 81 mg Atorvastatin Calcium (Atorvastatin Calcium 40 Mg Tablet) 40 mg PO BEDTIME [facility] Glucose (Glucose Gel 15 Gm Gel..Gram.) 15 gm PO Q15M PRN; Protocol PRN Reason: per Hypoglycemia Standing Ord. Heparin Sodium (Porcine) (Heparin Sodium,Porcine 5,000 Unit/Ml Vial) 5,000 unit SUBCUT Q8H [facility] Last Admin: 12/07/22 04:45 Dose: 5,000 unit Dextrose (D10) 250 mls @ 750 mls/hr IV Q15M PRN; Protocol PRN Reason: per Hypoglycemia Standing Ord. Insulin Human Lispro (Insulin Lispro 100 Unit/Ml 3 Ml Vial) 0 unit SUBCUT QIDACHS [facility]; Protocol Last Admin: 12/07/22 07:25 Dose: Not Given Labetalol HCl (Labetalol Hcl 100 Mg/20 Ml Vial) 10 mg IVPUSH Q4H PRN PRN Reason: BP>170/90 Last Admin: 12/07/22 02:46 Dose: 10 mg Melatonin (Melatonin 3 Mg Tablet) 6 mg PO BEDTIME PRN PRN Reason: Insomnia Senna (Sennosides 8.6 Mg Tablet) 17.2 mg PO BEDTIME PRN PRN Reason: Constipation Sodium Bicarbonate (Sodium Bicarbonate 650 Mg Tablet) 650 mg PO BID [facility] Last Admin: 12/07/22 07:51 Dose: 650 mg Sodium Chloride (0.9 % Sodium Chloride Flush 3 Ml Syringe) [facility] Last Admin: 12/07/22 07:51 Dose: 3 ml Home Medications Medication Instructions Recorded Confirmed Last Taken Type blood sugar diagnostic #10 ea 09/21/20 06/22/21 Unknown History pen needle, diabetic 32 gauge x #50 ea 09/21/20 01/03/22 Unknown History 1/4 amlodipine 10 mg tablet 1 tab PO DAILY 12/07/22 12/07/22 Unknown History aspirin 81 mg tablet,delayed 1 tab PO DAILY 12/07/22 12/07/22 Unknown History release atorvastatin 40 mg tablet 1 tab PO BEDTIME 12/07/22 12/07/22 Unknown History atorvastatin 40 mg tablet 1 tab PO BEDTIME 12/07/22 12/07/22 Unknown History cholecalciferol (vitamin D3) 50 1 cap PO DAILY 12/07/22 12/07/22 Unknown History mcg (2,000 unit) capsule famotidine 20 mg tablet 1 tab PO DAILY 12/07/22 12/07/22 Unknown History gabapentin 300 mg capsule 1 cap PO BEDTIME 12/07/22 12/07/22 Unknown History hydralazine 50 mg tablet 1.5 tab PO BID 12/07/22 12/07/22 Unknown History hydrochlorothiazide 25 mg tablet 1 tab PO DAILY 12/07/22 12/07/22 Unknown History insulin aspart U-100 100 unit/mL 0 - 20 unit subcut TID 12/07/22 12/07/22 Unknown History (3 mL) subcutaneous pen insulin glargine 100 unit/mL (3 50 unit subcut DAILY 12/07/22 12/07/22 Unknown History mL) subcutaneous pen (Lantus Solostar U-100 Insulin) ledipasvir 90 mg-sofosbuvir 400 mg 1 tab PO DAILY 12/07/22 12/07/22 Unknown History tablet mirtazapine 15 mg tablet 1 tab PO BEDTIME 12/07/22 12/07/22 Unknown History patiromer calcium sorbitex 8.4 8.4 g PO DAILY 12/07/22 12/07/22 Unknown History gram oral powder packet (Veltassa) Physical Exam Vital Signs: Vital Signs: Last Vital Signs Temp 98.4 F 12/07/22 07:18 Pulse 66 12/07/22 07:18 Resp 20 12/07/22 07:18 BP 177/66 H 12/07/22 07:18 Pulse Ox 96 12/07/22 07:18 O2 Del Method 12/07/22 07:18 O2 Flow Rate 1 12/07/22 02:24 BMI result Body Mass Index 23.9 Const: General: comfortable and no acute distress Orientation/consciousness: patient oriented x3 HEENT: Other: Unremarkable Head: Yes normal to inspection Neck: Neck: Yes normal visual inspection Chest: Chest palpation & inspection: normal inspection of the chest Resp: Other: Basal crackles Cardio: Palpation: normal PMI Heart sounds: S1 normal heart sound present, S2 normal heart sound present, no gallops, no murmurs and no rubs GI: Palpation (GI): Soft to palpation Back/Spine/Pelvis: Other: unremarkable Skin: General skin exam: no rashes or lesions noted Neuro: General: patient oriented x3 Extrem: General: Yes normal to inspection Psych: Mental Status: mental status grossly normal Objective Labs and Meds 12/07/22 00:37 12/07/22 04:19 Lab results: Laboratory Results - last 24 hr 12/07/22 12/07/22 12/07/22 00:37 00:37 00:37 WBC 9.0 RBC 3.65 L Hgb 10.4 L Hct 31.9 L MCV 87.4 MCH 28.5 MCHC 32.6 RDW 16.7 H Plt Count 305 MPV 9.9 Immature Gran % (Auto) 0.8 H Neut % (Auto) 63.8 Lymph % (Auto) 24.6 Hubbard % (Auto) 8.2 Eos % (Auto) 2.3 Baso % (Auto) 0.3 Lymph # (Auto) 2.2 Hubbard # (Auto) 0.7 Eos # (Auto) 0.2 Baso # (Auto) 0.0 Abs Immat Gran (auto) 0.07 H Absolute Neuts (auto) 5.7 Absolute Nucleated RBC 0.000 Nucleated RBC % (auto) 0.0 PT INR APTT Sodium 139 Potassium 5.4 H Chloride 112 H Carbon Dioxide 15 L Anion Gap 17 BUN 64 H Creatinine 10.12 H* Estim Creat Clear Calc 7.1 Estimated GFR 5 POC Glucose Random Glucose 166 H Calcium 7.8 L D Total Bilirubin 0.4 AST 22 ALT 17 Alkaline Phosphatase 134 H Troponin I High Sens B-Natriuretic Peptide Total Protein 5.8 L Albumin 2.5 L Urine Color Urine Appearance Urine pH Ur Specific Napoleon Urine Protein Urine Glucose (UA) Urine Ketones Urine Blood Urine Nitrite Ur Leukocyte Esterase Urine RBC Urine WBC Ur Squamous Epith Cells Urine Bacteria Hyaline Casts Influenza Type A (PCR) NEGATIVE Influenza Type B (PCR) NEGATIVE RSV RNA Qual (PCR) NEGATIVE SARS-CoV-2 RNA (RT-PCR) NEGATIVE 12/07/22 12/07/22 12/07/22 00:40 00:40 00:40 WBC RBC Hgb Hct MCV MCH MCHC RDW Plt Count MPV Immature Gran % (Auto) Neut % (Auto) Lymph % (Auto) Hubbard % (Auto) Eos % (Auto) Baso % (Auto) Lymph # (Auto) Hubbard # (Auto) Eos # (Auto) Baso # (Auto) Abs Immat Gran (auto) Absolute Neuts (auto) Absolute Nucleated RBC Nucleated RBC % (auto) PT 9.4 L INR 0.8 L APTT 34.0 Sodium Potassium Chloride Carbon Dioxide Anion Gap BUN Creatinine Estim Creat Clear Calc Estimated GFR POC Glucose Random Glucose Calcium Total Bilirubin AST ALT Alkaline Phosphatase Troponin I High Sens 43.7 H B-Natriuretic Peptide 2900 H Total Protein Albumin Urine Color Urine Appearance Urine pH Ur Specific Napoleon Urine Protein Urine Glucose (UA) Urine Ketones Urine Blood Urine Nitrite Ur Leukocyte Esterase Urine RBC Urine WBC Ur Squamous Epith Cells Urine Bacteria Hyaline Casts Influenza Type A (PCR) Influenza Type B (PCR) RSV RNA Qual (PCR) SARS-CoV-2 RNA (RT-PCR) 12/07/22 12/07/22 12/07/22 02:25 04:19 04:19 WBC RBC Hgb Hct MCV MCH MCHC RDW Plt Count MPV Immature Gran % (Auto) Neut % (Auto) Lymph % (Auto) Hubbard % (Auto) Eos % (Auto) Baso % (Auto) Lymph # (Auto) Hubbard # (Auto) Eos # (Auto) Baso # (Auto) Abs Immat Gran (auto) Absolute Neuts (auto) Absolute Nucleated RBC Nucleated RBC % (auto) PT INR APTT Sodium 140 Potassium 5.4 H Chloride 112 H Carbon Dioxide 18 L Anion Gap 15 BUN 63 H Creatinine 10.11 H* Estim Creat Clear Calc 7.4 Estimated GFR 5 POC Glucose Random Glucose 158 H Calcium 7.8 L Total Bilirubin 0.4 AST 18 ALT 15 Alkaline Phosphatase 119 H Troponin I High Sens 71.9 H D B-Natriuretic Peptide Total Protein 5.3 L Albumin 2.3 L Urine Color Yellow Urine Appearance Cloudy Urine pH 6.0 Ur Specific Napoleon 1.015 Urine Protein >=1000 (4+) H Urine Glucose (UA) 500 H Urine Ketones Negative Urine Blood Small (1+) H Urine Nitrite Negative Ur Leukocyte Esterase Negative Urine RBC 3-5 H Urine WBC 0-5 Ur Squamous Epith Cells 3-5 Urine Bacteria Trace Hyaline Casts 3-5 Influenza Type A (PCR) Influenza Type B (PCR) RSV RNA Qual (PCR) SARS-CoV-2 RNA (RT-PCR) 12/07/22 07:20 WBC RBC Hgb Hct MCV MCH MCHC RDW Plt Count MPV Immature Gran % (Auto) Neut % (Auto) Lymph % (Auto) Hubbard % (Auto) Eos % (Auto) Baso % (Auto) Lymph # (Auto) Hubbard # (Auto) Eos # (Auto) Baso # (Auto) Abs Immat Gran (auto) Absolute Neuts (auto) Absolute Nucleated RBC Nucleated RBC % (auto) PT INR APTT Sodium Potassium Chloride Carbon Dioxide Anion Gap BUN Creatinine Estim Creat Clear Calc Estimated GFR POC Glucose 141 H Random Glucose Calcium Total Bilirubin AST ALT Alkaline Phosphatase Troponin I High Sens B-Natriuretic Peptide Total Protein Albumin Urine Color Urine Appearance Urine pH Ur Specific Napoleon Urine Protein Urine Glucose (UA) Urine Ketones Urine Blood Urine Nitrite Ur Leukocyte Esterase Urine RBC Urine WBC Ur Squamous Epith Cells Urine Bacteria Hyaline Casts Influenza Type A (PCR) Influenza Type B (PCR) RSV RNA Qual (PCR) SARS-CoV-2 RNA (RT-PCR) ECG Interpretation: EKG with sinus tachycardia, 102/Min; leftward axis; right bundle-branch block; cannot exclude old septal infarct; lateral ST-T changes. Imaging Radiologist's impression: Impressions Chest X-Ray 12/07/22 01:15 IMPRESSION: * Diffuse bilateral streaky and hazy airspace opacities could be compatible with an atypical pneumonitis and/or pulmonary edema * Trace bilateral pleural effusions. Abdomen/Pelvis CT 12/07/22 02:35 IMPRESSION: * No urinary calculi or hydronephrosis. * Cholelithiasis. * Scattered left colonic diverticula without evidence of diverticulitis. * Anasarca with small bilateral pleural effusions and interstitial pulmonary edema. * Incidental splenorenal shunt. The liver is not frankly cirrhotic. Assessment and Plan (1) Acute CHF: Status: Acute (2) Acute renal failure: Status: Acute (3) Hypertensive emergency: Status: Acute Plan Blood pressures have been as high as 220/121 mm Hg upon arrival., they are improved now but still quite high. Creatinine is more than 10. A prior value from 2 years ago is 1.9. Cardiac BNP 2900. High sensitivity troponins are 43 and 72. Overall, hypertensive emergency as well as heart failure type presentation but this is related to worsening of renal function. Primary cardiac issues at less likely. We will get an echocardiogram for further evaluation. As the creatinine is quite high, diuretic regime should be plan by Nephrology. Probably appropriate for dialysis but patient states he would not want dialysis at any cost. Will follow up with you. Discussed with Dr. Jerome. Time Spent With Patient Time: Total time managing care of this patient today 75 minutes. Procedures Date of Service Date of Service: 12/07/22
[2022-12-07 11:27] LABS: Glucose, Whole Blood 222 mg/dL (60-115)
[2022-12-07] MEDS: Insulin Lispro 100 UNIT/ML 3 ML VIAL SUBCUT ×2 (11:39→16:54)
--- NOTE | 2022-12-07 12:03 | MHC.CM.PN ---
CM met with Patient at bedside . Patient lives alone in an apartment and he has the assist of [employer] services. Home/resume said services is the goal and CM has initiated and will follow for dc planning. Patient has received Covid vax x1 and the PCP is Dr. Shlomo Mcallister.
--- NOTE | 2022-12-07 14:16 | MHC.CM.PN ---
ERIN FROM [facility] CALLED TO INFORM CM THAT PT IS PART OF THE [facility] . HE WILL BE FAXING INSURANCE INFORMATION TO [phone]. ERIN CONTACT # [phone].
--- NOTE | 2022-12-07 15:40 | HO.PM.IMPN ---
Subjective Subjective Date of Service: 12/07/22 Interval History: sob Review of Systems sob seems improvin Denies any chest pain or cough or phlegm or abdominal pain or fever or chills. mental status seems to be at baseline. Physical Exam Vital Signs: Vital Signs: Last Vital Signs Temp 97.8 F 12/07/22 15:19 Pulse 73 12/07/22 15:19 Resp 15 12/07/22 15:19 BP 144/87 H 12/07/22 15:19 Pulse Ox 95 12/07/22 15:19 O2 Del Method 12/07/22 15:19 O2 Flow Rate 1 12/07/22 02:24 BMI result Body Mass Index 23.9 Appearance: Alert.? Oriented X3.?very minimum sob with excersion cvs: rrr, [id number]. res: air entry fair , diminshed at bases , no wheezing , few scattered rales, abd: no rebound or guarding ,nt, bs present. ext pulses present , no cyanosis. neuro: axo3 , nonfocal. Objective Data Active Medications Acetaminophen (Acetaminophen 325 Mg Tablet) 650 mg PO Q6H PRN PRN Reason: Pain, Mild (Pain Scale 1-3) Acetaminophen (Acetaminophen 325 Mg Tablet) 650 mg PO TID PRN PRN Reason: fever or pain Amlodipine Besylate (Amlodipine Besylate 10 Mg Tablet) 10 mg PO DAILY [facility]; Protocol Last Admin: 12/07/22 07:49 Dose: 10 mg Documented By: RHIANNA Aspirin (Aspirin 81 Mg Tab.Chew) 81 mg PO DAILY [facility] Last Admin: 12/07/22 07:49 Dose: 81 mg Documented By: RHIANNA Atorvastatin Calcium (Atorvastatin Calcium 40 Mg Tablet) 40 mg PO BEDTIME [facility] Atorvastatin Calcium (Atorvastatin Calcium 40 Mg Tablet) 40 mg PO BEDTIME [facility] Famotidine (Famotidine 20 Mg Tablet) 20 mg PO DAILY [facility] Ferrous Sulfate (Ferrous Sulfate 324 Mg Tablet.Dr) 324 mg PO DAILY [facility] Gabapentin (Gabapentin 300 Mg Capsule) 300 mg PO BEDTIME [facility] Glucose (Glucose Gel 15 Gm Gel..Gram.) 15 gm PO Q15M PRN; Protocol PRN Reason: per Hypoglycemia Standing Ord. Heparin Sodium (Porcine) (Heparin Sodium,Porcine 5,000 Unit/Ml Vial) 5,000 unit SUBCUT Q8H [facility] Last Admin: 12/07/22 15:09 Dose: 5,000 unit Documented By: RHIANNA Hydrochlorothiazide (Hydrochlorothiazide 25 Mg Tablet) 25 mg PO DAILY [facility]; Protocol Dextrose (D10) 250 mls @ 750 mls/hr IV Q15M PRN; Protocol PRN Reason: per Hypoglycemia Standing Ord. Insulin Human Lispro (Insulin Lispro 100 Unit/Ml 3 Ml Vial) 0 unit SUBCUT QIDACHS [facility]; Protocol Last Admin: 12/07/22 11:39 Dose: 4 unit Documented By: RHIANNA Labetalol HCl (Labetalol Hcl 100 Mg/20 Ml Vial) 10 mg IVPUSH Q4H PRN PRN Reason: BP>170/90 Last Admin: 12/07/22 11:40 Dose: 10 mg Documented By: RHIANNA Melatonin (Melatonin 3 Mg Tablet) 6 mg PO BEDTIME PRN PRN Reason: Insomnia Mirtazapine (Mirtazapine 15 Mg Tablet) 15 mg PO BEDTIME [facility] Non-Formulary Medication (Ledipasvir-Sofosbuvir) 1 tab PO DAILY [facility] Non-Formulary Medication (Patiromer Calcium Sorbitex [Veltassa]) 8.4 gm PO DAILY [facility] Omeprazole (Omeprazole 20 Mg Capsule.Dr) 20 mg PO DAILY [facility] Senna (Sennosides 8.6 Mg Tablet) 17.2 mg PO BEDTIME PRN PRN Reason: Constipation Sodium Bicarbonate (Sodium Bicarbonate 650 Mg Tablet) 650 mg PO BID [facility] Last Admin: 12/07/22 07:51 Dose: 650 mg Documented By: RHIANNA Sodium Chloride (0.9 % Sodium Chloride Flush 3 Ml Syringe) 3 ml IVFLUSH QSHIFT [facility] Last Admin: 12/07/22 07:51 Dose: 3 ml Documented By: RHIANNA Vitamin D (Cholecalciferol (Vitamin D3) 25 Mcg Tablet) 50 mcg PO DAILY [facility] Labs 12/07/22 00:37 12/07/22 04:19 Labs: Laboratory Results - last 24 hr 12/07/22 12/07/22 12/07/22 00:37 00:37 00:37 MCV 87.4 MCH 28.5 MCHC 32.6 RDW 16.7 H Plt Count 305 MPV 9.9 Immature Gran % (Auto) 0.8 H Neut % (Auto) 63.8 Lymph % (Auto) 24.6 [place] % (Auto) 8.2 Eos % (Auto) 2.3 Baso % (Auto) 0.3 Lymph # (Auto) 2.2 [place] # (Auto) 0.7 Eos # (Auto) 0.2 Baso # (Auto) 0.0 Abs Immat Gran (auto) 0.07 H Absolute Neuts (auto) 5.7 Absolute Nucleated RBC 0.000 Nucleated RBC % (auto) 0.0 PT INR APTT Anion Gap 17 Estim Creat Clear Calc 7.1 Estimated GFR 5 POC Glucose Random Glucose 166 H Calcium 7.8 L D Total Bilirubin 0.4 AST 22 ALT 17 Alkaline Phosphatase 134 H Troponin I High Sens B-Natriuretic Peptide Total Protein 5.8 L Albumin 2.5 L Urine Color Urine Appearance Urine pH Ur Specific [place] Urine Protein Urine Glucose (UA) Urine Ketones Urine Blood Urine Nitrite Ur Leukocyte Esterase Urine RBC Urine WBC Ur Squamous Epith Cells Urine Bacteria Hyaline Casts Influenza Type A (PCR) NEGATIVE Influenza Type B (PCR) NEGATIVE RSV RNA Qual (PCR) NEGATIVE SARS-CoV-2 RNA (RT-PCR) NEGATIVE 12/07/22 12/07/22 12/07/22 00:40 00:40 00:40 MCV MCH MCHC RDW Plt Count MPV Immature Gran % (Auto) Neut % (Auto) Lymph % (Auto) [place] % (Auto) Eos % (Auto) Baso % (Auto) Lymph # (Auto) [place] # (Auto) Eos # (Auto) Baso # (Auto) Abs Immat Gran (auto) Absolute Neuts (auto) Absolute Nucleated RBC Nucleated RBC % (auto) PT 9.4 L INR 0.8 L APTT 34.0 Anion Gap Estim Creat Clear Calc Estimated GFR POC Glucose Random Glucose Calcium Total Bilirubin AST ALT Alkaline Phosphatase Troponin I High Sens 43.7 H B-Natriuretic Peptide 2900 H Total Protein Albumin Urine Color Urine Appearance Urine pH Ur Specific [place] Urine Protein Urine Glucose (UA) Urine Ketones Urine Blood Urine Nitrite Ur Leukocyte Esterase Urine RBC Urine WBC Ur Squamous Epith Cells Urine Bacteria Hyaline Casts Influenza Type A (PCR) Influenza Type B (PCR) RSV RNA Qual (PCR) SARS-CoV-2 RNA (RT-PCR) 12/07/22 12/07/22 12/07/22 02:25 04:19 04:19 MCV MCH MCHC RDW Plt Count MPV Immature Gran % (Auto) Neut % (Auto) Lymph % (Auto) [place] % (Auto) Eos % (Auto) Baso % (Auto) Lymph # (Auto) [place] # (Auto) Eos # (Auto) Baso # (Auto) Abs Immat Gran (auto) Absolute Neuts (auto) Absolute Nucleated RBC Nucleated RBC % (auto) PT INR APTT Anion Gap 15 Estim Creat Clear Calc 7.4 Estimated GFR 5 POC Glucose Random Glucose 158 H Calcium 7.8 L Total Bilirubin 0.4 AST 18 ALT 15 Alkaline Phosphatase 119 H Troponin I High Sens 71.9 H D B-Natriuretic Peptide Total Protein 5.3 L Albumin 2.3 L Urine Color Yellow Urine Appearance Cloudy Urine pH 6.0 Ur Specific [place] 1.015 Urine Protein >=1000 (4+) H Urine Glucose (UA) 500 H Urine Ketones Negative Urine Blood Small (1+) H Urine Nitrite Negative Ur Leukocyte Esterase Negative Urine RBC 3-5 H Urine WBC 0-5 Ur Squamous Epith Cells 3-5 Urine Bacteria Trace Hyaline Casts 3-5 Influenza Type A (PCR) Influenza Type B (PCR) RSV RNA Qual (PCR) SARS-CoV-2 RNA (RT-PCR) 12/07/22 12/07/22 07:20 11:23 MCV MCH MCHC RDW Plt Count MPV Immature Gran % (Auto) Neut % (Auto) Lymph % (Auto) [place] % (Auto) Eos % (Auto) Baso % (Auto) Lymph # (Auto) [place] # (Auto) Eos # (Auto) Baso # (Auto) Abs Immat Gran (auto) Absolute Neuts (auto) Absolute Nucleated RBC Nucleated RBC % (auto) PT INR APTT Anion Gap Estim Creat Clear Calc Estimated GFR POC Glucose 141 H 222 H Random Glucose Calcium Total Bilirubin AST ALT Alkaline Phosphatase Troponin I High Sens B-Natriuretic Peptide Total Protein Albumin Urine Color Urine Appearance Urine pH Ur Specific [place] Urine Protein Urine Glucose (UA) Urine Ketones Urine Blood Urine Nitrite Ur Leukocyte Esterase Urine RBC Urine WBC Ur Squamous Epith Cells Urine Bacteria Hyaline Casts Influenza Type A (PCR) Influenza Type B (PCR) RSV RNA Qual (PCR) SARS-CoV-2 RNA (RT-PCR) Assessment and Plan (1) Acute CHF: Status: Acute (2) Acute renal failure: Status: Acute Plan 62-year-old male with a past medical history of hypertension, hyperlipidemia, diabetes, polysubstance abuse, history of hep C, CKD into the hospital today with a chief complaint of shortness of breath.? Admitted for following Shortness of breath:?In the setting of fluid overload secondary to worsening renal insufficiency/question CHF(HfpEf). ProBNP elevated to 2900 Echocardiogram:The left ventricular systolic function is moderately decreased. The visually estimated ejection fraction is between 35-40%.? ? ? - There is moderately increased left ventricular wall thickness. - No obvious valvular pathology seen on this study. Received 100 mg Lasix early in the morning Monitor I's and O's: 300mlneg and daily weights Initial troponin 43.7-71 in setting of reduced clearance from renal insufficiency/uncontrolled htn.? Patient denies any chest pain.? EKG nonischemic cardio and nephro eval noted-added permacath, may need lasix INO on CKD/metabolic acidosis: Unknown recent baseline creatinine.? Creatinine was 1.9 about 2 years ago.? 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 Hypertensive uncontrolled :? Patient mentioned that he has been not taking his home medications for the past couple days. started home meds -amlodipine 10 mg,hctz,Labetalol p.r.n. Diabetes: acceptable ??fs with sliding scale coverage ,? Will hold off on the long-acting insulin for now given severe renal insufficiency. DVTppx: SQH inaptient need : Advanced renal disease with uncontrolled hypertension-need monitoring for shortness of breath and blood pressure control as well as patient need PermCath for possible dialysis. In addition patient also need electrolytic and renal function monitoring. The Time Spent With Patient Time: Total time managing care of this patient today ____ minutes. Quality Stroke Does the patient have a stroke diagnosis?: No VTE Prior VTE?: No VTE Risk Level:: Medical - moderate - high VTE Device Contraindication: Treatment Not Indicated VTE Drug Contraindication: N/A - Med Ordered
[2022-12-07 15:41] LABS: Glucose, Whole Blood 155 mg/dL (60-115)
[2022-12-07] MEDS: Furosemide 100 MG/10 ML VIAL 120 MG IVPUSH ×2 (16:53→23:21)
[2022-12-07] MEDS: Fluticasone Propionate Nasal 16 GM SPRAY 1 SPRAY NOSTRIL-B (18:04)
[2022-12-07 20:01] LABS: Glucose, Whole Blood 139 mg/dL (60-115)
[2022-12-07] MEDS: Gabapentin 300 MG CAPSULE PO (20:16)
[2022-12-07] MEDS: Atorvastatin Calcium 40 MG TABLET PO (20:16)
[2022-12-07] MEDS: Mirtazapine 15 MG TABLET PO (20:16)
[2022-12-07] MEDS: Melatonin 3 MG TABLET 6 MG PO (20:16)
[2022-12-08] VITALS (7 sets, daily range): BP systolic 162–197; BP diastolic 76–97; PULSE 72–86; RESP 15–20; TEMP 36.2–36.9; O2SAT 92–97; BMI 23.8
--- NOTE | 2022-12-08 04:12 | CONS_ITS ---
DATE OF SERVICE: 12/07/2022 REASON FOR CONSULTATION: I was asked to see patient to assist in evaluation and management of patient's severe renal dysfunction as reflected by creatinine at 10. HISTORY OF PRESENT ILLNESS: In summary, the patient is a 62-year-old gentleman, who has known advanced chronic kidney disease and apparently in the past has been ambivalent about going on dialysis. I talked with his outpatient primary care doctor, Dr. Shlomo Mcallister, who tells me the patient has again been ambivalent about starting dialysis. He now presents to the hospital complaining of shortness of breath. He has again advanced stage 5 chronic kidney disease, hypertension, hyperlipidemia, diabetes, polysubstance abuse, history of hep C. He has been experiencing increasing shortness of breath over the past several days with some orthopnea and PND. He denies any fever, sweats, or chills. His evaluation in the emergency room showed evidence of hypervolemia. He had a CAT scan, which showed evidence of anasarca and ascites and pulmonary congestion. He is overall feeling better since being admitted to the hospital. He is oxygenating on 2 L of oxygen and lying flat. PAST MEDICAL HISTORY: As mentioned above. MEDICATIONS: His medications on admission noted in the admitting notes. Current medications noted in the MAR. ALLERGIES: HE HAS NO KNOWN DRUG ALLERGIES. SOCIAL HISTORY: There is mention made that he is a former smoker and alcohol user and substance abuser including cocaine. FAMILY HISTORY: Noncontributory. REVIEW OF SYSTEMS: As noted above. PHYSICAL EXAMINATION: VITAL SIGNS: Blood pressure of 158/90 with a heart rate in the 70s. He is on room air of 90% sats. HEAD: Atraumatic and normocephalic. NECK: Supple. Mucous membranes are moist. LUNGS: Decreased breath sounds at bases with some rales. CARDIAC: Regular rate and rhythm. ABDOMEN: Soft, nontender with good bowel sounds. No CVA tenderness. EXTREMITIES: Show 2+ edema. There is no asterixis. LABORATORY DATA: Show hemoglobin 10.4, hematocrit 31.9, white blood cell count 9. Sodium 140, potassium 5.4, chloride 112, bicarb 18, BUN 63, creatinine 10, albumin 2.3. Back in 2020, he had a urine albumin creatinine ratio of 4870 mg. On the computer system here at [facility], his creatinine in 2020 was 1.9. In discussing his creatinines with his outpatient doctor, he tells me that the creatinines have been markedly elevated. Again, dialysis has been discussed with him in the past and he has been ambivalent about starting dialysis. IMPRESSION: 62-YEAR-OLD WITH END-STAGE RENAL DISEASE, PRESENTS TO THE HOSPITAL WITH FLUID OVERLOAD AND QUESTION UREMIC SYMPTOMS. 1. End-stage renal disease. I had a long discussion with him regarding going on dialysis. He understands that without dialysis there is a high likelihood that he will within the next several weeks and he now wants to go on dialysis. I explained to have dialysis performed and that we need to place a dialysis catheter and he is agreeable to going forward with this. 2. Hyperkalemia. He got dose of Lokelma. We will continue to monitor him on low-potassium diet. 3. Hypervolemia. He is on Lasix and increased urine output. Breathing better. 4. Hypertension. Blood pressure is doing better. 5. Depressed serum bicarb. We will monitor this as he may need supplementation. RECOMMENDATIONS: At this time include: 1. IV Lasix 120 mg q.8 hours. 2. PermCath placement in the morning. 3. Hepatitis B serologies have been ordered and required for dialysis patients. 4. Obtaining outpatient dialysis spot. He is concerned that he lives on the 2nd floor and that also about what transportation would be available to him from the dialysis unit. I explained to him that this would be coordinated through the case advocate and rn social work at the outpatient dialysis unit along with the help of the team at the hospital to coordinate his transportation to and from the dialysis center. 5. We will follow the patient closely with the team. MD DENI Evans/LATASHA / [phone]
[2022-12-08 05:13] LABS: HBS Num1 0.46 mIU/mL (0-7.99); HBsAGNum1 0.19 S/CO (0.00-0.99); Hepatitis B Core Antibody Nonreactive (Nonreactive); Hepatitis B Surface Antigen Negative (Negative); ~HepC Num1 15.23 S/CO (0.00-0.79); ~Hepatitis B Surface Antibody NONREACTIVE (Nonreactive); ~Hepatitis C Antibody Reactive (Nonreactive)
[2022-12-08 06:45] LABS: Anion Gap 16 (12-20); Blood Urea Nitrogen 65 mg/dL (9-16); Calcium 7.5 mg/dL (8.4-10.2); Carbon Dioxide 17 mmol/L (22-29); Chloride 110 mmol/L (96-108); Creatinine Clr Calc Pharmacy 6.9; Estimated Glomerular Filt Rate 5; Glucose Random 114 mg/dL (60-115); Potassium 4.8 mmol/L (3.3-5.1); Sodium 138 mmol/L (135-145)
[2022-12-08 07:10] LABS: Glucose, Whole Blood 124 mg/dL (60-115)
[2022-12-08] MEDS: Furosemide 100 MG/10 ML VIAL 120 MG IVPUSH (07:55)
[2022-12-08] MEDS: 0.9 % Sodium Chloride Flush 3 ML SYRINGE IVFLUSH (07:55)
[2022-12-08] MEDS: Fluticasone Propionate Nasal 16 GM SPRAY 1 SPRAY NOSTRIL-B (08:01)
[2022-12-08] MEDS: amLODIPine Besylate 10 MG TABLET PO (09:14)
[2022-12-08 10:39] LABS: Glucose, Whole Blood 139 mg/dL (60-115)
[2022-12-08] MEDS: Lidocaine HCl 1 % MPF 5 ML VIAL 6 ML SUBCUT (12:40)
[2022-12-08] MEDS: Lidocaine HCl 1% PF/Epi 1:200,000 30 ML VIAL 10 ML SUBCUT (12:41)
--- NOTE | 2022-12-08 12:53 | MHC.CM.PN ---
EMR REVIEWED AND PER MD ROUNDS., PT IS NOT MEDICALLY CLEARED FOR DC (PERMACATH PLACEMENT FOR HD, IV DIURETIC, ELECTROLYTE MONITORING) CM WILL CONTINUE TO FOLLOW FOR PLAN.
--- NOTE | 2022-12-08 14:18 | P.PNIM_ITS ---
Subjective Subjective Date of Service: 12/09/22 Interval History: sob Review of Systems sob seems to be improved denies any chest pain or nausea /vomiting Physical Exam Vital Signs: Vital Signs: Last Vital Signs Temp 97.6 F 12/08/22 13:00 Pulse 86 12/08/22 13:00 Resp 20 12/08/22 13:00 BP 193/92 H 12/08/22 13:00 Pulse Ox 97 12/08/22 13:00 O2 Del Method 12/08/22 13:00 O2 Flow Rate 1 12/07/22 02:24 BMI result Body Mass Index 23.8 Appearance: Alert.? Oriented X3.?very minimum sob with excersion cvs: rrr, [id number]. res: air entry fair , diminshed at bases , no wheezing , few scattered rales, abd: no rebound or guarding ,nt, bs present. ext pulses present , no cyanosis. neuro: axo3 , nonfocal. Objective Data Active Medications Acetaminophen (Acetaminophen 325 Mg Tablet) 650 mg PO Q6H PRN PRN Reason: Pain, Mild (Pain Scale 1-3) Acetaminophen (Acetaminophen 325 Mg Tablet) 650 mg PO TID PRN PRN Reason: fever or pain Amlodipine Besylate (Amlodipine Besylate 10 Mg Tablet) 10 mg PO DAILY [facility]; Protocol Last Admin: 12/08/22 09:14 Dose: 10 mg Documented By: RHIANNA Aspirin (Aspirin 81 Mg Tab.Chew) 81 mg PO DAILY [facility] Last Admin: 12/07/22 07:49 Dose: 81 mg Documented By: RHIANNA Atorvastatin Calcium (Atorvastatin Calcium 40 Mg Tablet) 40 mg PO BEDTIME [facility] Last Admin: 12/07/22 20:16 Dose: 40 mg Documented By: SHELBY Atorvastatin Calcium (Atorvastatin Calcium 40 Mg Tablet) 40 mg PO BEDTIME [facility] Last Admin: 12/07/22 20:16 Dose: Not Given Documented By: SHELBY Non-Admin Reason: Duplicate Order Famotidine (Famotidine 20 Mg Tablet) 20 mg PO DAILY [facility] Last Admin: 12/08/22 09:00 Dose: Not Given Documented By: RHIANNA Non-Admin Reason: NPO pending surgery. MD anna Ferrous Sulfate (Ferrous Sulfate 324 Mg Tablet.) 324 mg PO DAILY [facility] Last Admin: 12/08/22 09:00 Dose: Not Given Documented By: RHIANNA Non-Admin Reason: NPO pending surgery. aware Fluticasone Propionate (Fluticasone Propionate Nasal 16 Gm [place]) 1 spray NOSTRIL-B DAILY [facility] Last Admin: 12/08/22 08:01 Dose: 1 spray Documented By: RHIANNA Furosemide (Furosemide 100 Mg/10 Ml Vial) 120 mg IVPUSH Q8H [facility]; Protocol Last Admin: 12/08/22 07:55 Dose: 120 mg Documented By: RHIANNA Gabapentin (Gabapentin 300 Mg Capsule) 300 mg PO BEDTIME [facility] Last Admin: 12/07/22 20:16 Dose: 300 mg Documented By: SHELBY Glucose (Glucose Gel 15 Gm Gel..Gram.) 15 gm PO Q15M PRN; Protocol PRN Reason: per Hypoglycemia Standing Ord. Heparin Sodium (Porcine) (Heparin Sodium,Porcine 5,000 Unit/Ml Vial) 5,000 unit SUBCUT Q8H [facility] Last Admin: 12/08/22 05:34 Dose: Not Given Documented By: SHELBY Non-Admin Reason: permacath placement today Hydrochlorothiazide (Hydrochlorothiazide 25 Mg Tablet) 25 mg PO DAILY [facility]; Protocol Last Admin: 12/08/22 09:00 Dose: Not Given Documented By: RHIANNA Non-Admin Reason: NPO pending surgery. aware Dextrose (D10) 250 mls @ 750 mls/hr IV Q15M PRN; Protocol PRN Reason: per Hypoglycemia Standing Ord. Insulin Human Lispro (Insulin Lispro 100 Unit/Ml 3 Ml Vial) 0 unit SUBCUT QIDACHS [facility]; Protocol Last Admin: 12/08/22 12:50 Dose: Not Given Documented By: RHIANNA Non-Admin Reason: No Insulin Coverage Labetalol HCl (Labetalol Hcl 100 Mg/20 Ml Vial) 10 mg IVPUSH Q4H PRN PRN Reason: BP>170/90 Last Admin: 12/07/22 11:40 Dose: 10 mg Documented By: RHIANNA Labetalol HCl (Labetalol Hcl 100 Mg Tablet) 100 mg PO ONCE ONE; Protocol Stop: 12/08/22 14:18 Melatonin (Melatonin 3 Mg Tablet) 6 mg PO BEDTIME PRN PRN Reason: Insomnia Last Admin: 12/07/22 20:16 Dose: 6 mg Documented By: SHELBY Mirtazapine (Mirtazapine 15 Mg Tablet) 15 mg PO BEDTIME [facility] Last Admin: 12/07/22 20:16 Dose: 15 mg Documented By: SHELBY Non-Formulary Medication (Ledipasvir-Sofosbuvir) 1 tab PO DAILY [facility] Non-Formulary Medication (Patiromer Calcium Sorbitex [Veltassa]) 8.4 gm PO DAILY [facility] Omeprazole (Omeprazole 20 Mg Capsule.Dr) 20 mg PO DAILY [facility] Last Admin: 12/08/22 09:00 Dose: Not Given Documented By: RHIANNA Non-Admin Reason: NPO pending surgery. MD anna Senna (Sennosides 8.6 Mg Tablet) 17.2 mg PO BEDTIME PRN PRN Reason: Constipation Sodium Bicarbonate (Sodium Bicarbonate 650 Mg Tablet) 650 mg PO BID [facility] Last Admin: 12/08/22 09:00 Dose: Not Given Documented By: RHIANNA Non-Admin Reason: NPO pending surgery. MD anna Sodium Chloride (0.9 % Sodium Chloride Flush 3 Ml Syringe) 3 ml IVFLUSH QSHIFT [facility] Last Admin: 12/08/22 07:55 Dose: 3 ml Documented By: RHIANNA Vitamin D (Cholecalciferol (Vitamin D3) 25 Mcg Tablet) 50 mcg PO DAILY [facility] Last Admin: 12/08/22 09:00 Dose: Not Given Documented By: RHIANNA Non-Admin Reason: NPO pending surgery. MD anna Labs 12/07/22 00:37 12/08/22 05:34 Labs: Laboratory Results - last 24 hr 12/07/22 12/07/22 12/07/22 15:38 19:38 19:57 Anion Gap Estim Creat Clear Calc Estimated GFR POC Glucose 155 H 139 H Random Glucose Calcium Hep Bs Antigen Negative Hep Bs Antibody NONREACTIVE Hep B Core Total Ab Nonreactive Hepatitis C Ab (EIA) Reactive H 12/08/22 12/08/22 12/08/22 05:34 07:07 10:34 Anion Gap 16 Estim Creat Clear Calc 6.9 Estimated GFR 5 POC Glucose 124 H 139 H Random Glucose 114 Calcium 7.5 L Hep Bs Antigen Hep Bs Antibody Hep B Core Total Ab Hepatitis C Ab (EIA) Assessment and Plan (1) Acute CHF: Status: Acute (2) Acute renal failure: Status: Acute Plan 62-year-old male with a past medical history of hypertension, hyperlipidemia, diabetes, polysubstance abuse, history of hep C, CKD into the hospital today with a chief complaint of shortness of breath.? Admitted for following Shortness of breath:?In the setting of fluid overload secondary to worsening renal insufficiency/question CHF(HfpEf). ProBNP elevated to 2900 Echocardiogram:The left ventricular systolic function is moderately decreased. The visually estimated ejection fraction is between 35-40%.? ? ? - There is moderately increased left ventricular wall thickness. - No obvious valvular pathology seen on this study. Received 100 mg Lasix early in the morning Monitor I's and O's: 1.7 liter neg and daily weights Initial troponin 43.7-71 in setting of reduced clearance from renal insufficiency/uncontrolled htn.? Patient denies any chest pain.? EKG nonischemic cardio and nephro eval noted-added permacath, continue lasix until HD . INO on CKD/metabolic acidosis: Unknown recent baseline creatinine.? Creatinine was 1.9 about 2 years ago.? as per patient manager asset -cr bumpin up over months Creatinine on presentation is 10 Avoid nephrotoxins Nephrology consult for further recommendation-agrees for hemodialysis. Hypertensive uncontrolled :? Patient mentioned that he has been not taking his home medications for the past couple days. started home meds -amlodipine 10 mg,hctz, added labetalol ,Labetalol p.r.n. Diabetes: acceptable fs with sliding scale coverage ,? Will hold off on the long-acting insulin for now given severe renal insufficiency. DVTppx: SQH inaptient need : Advanced renal disease with uncontrolled hypertension-need monitoring for shortness of breath and blood pressure control as well as patient need PermCath for possible dialysis. In addition patient also need electrolytic and renal function monitoring. Time Spent With Patient Time: Total time managing care of this patient today ____ minutes. Quality Stroke Does the patient have a stroke diagnosis?: No VTE Prior VTE?: No VTE Risk Level:: Medical - moderate - high VTE Device Contraindication: Treatment Not Indicated VTE Drug Contraindication: N/A - Med Ordered
--- NOTE | 2022-12-08 16:31 | P.PNNP_ITS ---
Subjective Subjective Date of Service: 12/08/22 Interval history: sob Pt seen on HD Has a Permcath Physical Exam Vital Signs: Vital Signs: Last Vital Signs Temp 97.6 F 12/08/22 13:00 Pulse 86 12/08/22 13:00 Resp 20 12/08/22 13:00 BP 193/92 H 12/08/22 13:00 Pulse Ox 97 12/08/22 13:00 O2 Del Method 12/08/22 13:00 O2 Flow Rate 1 12/07/22 02:24 BMI result Body Mass Index 23.8 Appearance: Alert.? Oriented X3.?very minimum sob with excersion cvs: rrr, [id number]. res: air entry fair , diminshed at bases , no wheezing , few scattered rales, abd: no rebound or guarding ,nt, bs present. ext pulses present , no cyanosis. neuro: axo3 , nonfocal. Objective Data Labs 12/07/22 00:37 12/08/22 05:34 Labs: Laboratory Results - last 24 hr 12/07/22 12/07/22 12/08/22 19:38 19:57 05:34 Sodium 138 Potassium 4.8 Chloride 110 H Carbon Dioxide 17 L Anion Gap 16 BUN 65 H Creatinine 10.82 H* Estim Creat Clear Calc 6.9 Estimated GFR 5 POC Glucose 139 H Random Glucose 114 Calcium 7.5 L Hep Bs Antigen Negative Hep Bs Antibody NONREACTIVE Hep B Core Total Ab Nonreactive Hepatitis C Ab (EIA) Reactive H 12/08/22 12/08/22 07:07 10:34 Sodium Potassium Chloride Carbon Dioxide Anion Gap BUN Creatinine Estim Creat Clear Calc Estimated GFR POC Glucose 124 H 139 H Random Glucose Calcium Hep Bs Antigen Hep Bs Antibody Hep B Core Total Ab Hepatitis C Ab (EIA) Procedures Date of Service Date of Service: 12/08/22 Assessment & Plan Assessment and plan (1) ESRD (end stage renal disease): Status: Acute Assessment and Plan: 1. End-stage renal disease.? I had a long discussion with him regarding going on dialysis.? He understands that without dialysis there is a high likelihood that he will within the next several weeks and he now wants to go on dialysis.? I explained to have dialysis performed and that we need to place a dialysis catheter and he is agreeable to going forward with this. 2. Hyperkalemia.? He got dose of Lokelma.? We will continue to monitor him on low-potassium diet. 3. Hypervolemia.? He is on Lasix and increased urine output.? Breathing better. 4. Hypertension.? Blood pressure is doing better. 5. Depressed serum bicarb.? We will monitor this as he may need supplementation. ? RECOMMENDATIONS:? At this time include: 1. Continue HD 2. HD again in AM . 3 s/p . PermCath placement 4.We are setting up Obtaining outpatient dialysis spot.? He is concerned that he lives on the 2nd floor and that also about what transportation would be available to him from the dialysis unit.? I explained to him that this would be coordinated through the child support case officer and social organization professor at the outpatient dialysis unit along with the help of the team at the hospital to coordinate his transportation to and from the dialysis center. . We will follow the patient closely with the team. ?. ? Time Spent With Patient Time: Total time managing care of this patient today ____ minutes. Progress Note: Quality Stroke Does the patient have a stroke diagnosis?: No
[2022-12-08 17:53] LABS: Glucose, Whole Blood 113 mg/dL (60-115)
[2022-12-08] MEDS: Labetalol HCL 100 MG TABLET PO ×2 (17:59→20:23)
[2022-12-08] MEDS: Gabapentin 300 MG CAPSULE PO (20:22)
[2022-12-08] MEDS: Acetaminophen 325 MG TABLET 650 MG PO (20:22)
[2022-12-08] MEDS: Atorvastatin Calcium 40 MG TABLET PO (20:22)
[2022-12-08] MEDS: Sodium Bicarbonate 650 MG TABLET PO (20:23)
[2022-12-08] MEDS: Mirtazapine 15 MG TABLET PO (20:37)
[2022-12-08 20:50] LABS: Glucose, Whole Blood 149 mg/dL (60-115)
[2022-12-09] VITALS: BP 130/66; PULSE 55; RESP 20; TEMP 36.8; O2SAT 96
[2022-12-09] MEDS: Furosemide 100 MG/10 ML VIAL 120 MG IVPUSH (00:51)
[2022-12-09] MEDS: 0.9 % Sodium Chloride Flush 3 ML SYRINGE IVFLUSH ×3 (00:52→14:37)
[2022-12-09 04:00] VITALS: BP 167/87; PULSE 57; RESP 20; TEMP 36.4; O2SAT 97
[2022-12-09 06:00] VITALS: BMI 22.4
[2022-12-09 08:00] VITALS: BP 170/74; PULSE 60; RESP 12; TEMP 36.7; O2SAT 97
[2022-12-09 08:07] LABS: Glucose, Whole Blood 141 mg/dL (60-115)
[2022-12-09 08:37] LABS: Anion Gap 14 (12-20); Blood Urea Nitrogen 47 mg/dL (9-16); Calcium 7.9 mg/dL (8.4-10.2); Carbon Dioxide 19 mmol/L (22-29); Chloride 108 mmol/L (96-108); Creatinine Clr Calc Pharmacy 9.3; Estimated Glomerular Filt Rate 7; Glucose Random 129 mg/dL (60-115); Sodium 136 mmol/L (135-145)
[2022-12-09 08:51] LABS: Phosphorus 6.5 mg/dL (2.7-4.5)
[2022-12-09] MEDS: Famotidine 20 MG TABLET PO (09:37)
[2022-12-09] MEDS: Cholecalciferol (Vitamin D3) 25 MCG TABLET 50 MCG PO (09:37)
[2022-12-09] MEDS: carvediloL 6.25 MG TABLET PO ×2 (09:37→20:59)
[2022-12-09] MEDS: hydrALAZINE HCl 25 MG TABLET PO ×3 (09:37→20:59)
[2022-12-09] MEDS: Ferrous Sulfate 324 MG TABLET.DR PO (09:38)
[2022-12-09] MEDS: amLODIPine Besylate 10 MG TABLET PO (09:38)
[2022-12-09] MEDS: Sodium Bicarbonate 650 MG TABLET PO ×2 (09:38→20:59)
[2022-12-09] MEDS: Fluticasone Propionate Nasal 16 GM SPRAY 1 SPRAY NOSTRIL-B (09:40)
[2022-12-09] MEDS: Omeprazole 20 MG CAPSULE.DR PO (09:41)
--- NOTE | 2022-12-09 11:38 | P.PNIM_ITS ---
Subjective Subjective Date of Service: 12/09/22 Interval History: sob Review of Systems sob seems to be improved denies any chest pain or nausea /vomiting Physical Exam Vital Signs: Vital Signs: Last Vital Signs Temp 98.0 F 12/09/22 08:00 Pulse 60 12/09/22 08:00 Resp 12 12/09/22 08:00 BP 170/74 H 12/09/22 08:00 Pulse Ox 97 12/09/22 08:00 O2 Del Method 12/09/22 08:00 O2 Flow Rate 1 12/07/22 02:24 BMI result Body Mass Index 22.4 Appearance: Alert.? Oriented X3.? cvs: rrr, [id number]. res: fair air entry,no rales or wheezin abd: no rebound or guarding ,nt, bs present. ext pulses present , no cyanosis. neuro: axo3 , nonfocal. Objective Data Active Medications Acetaminophen (Acetaminophen 325 Mg Tablet) 650 mg PO Q6H PRN PRN Reason: Pain, Mild (Pain Scale 1-3) Last Admin: 12/08/22 20:22 Dose: 650 mg Documented By: RHIANNA Acetaminophen (Acetaminophen 325 Mg Tablet) 650 mg PO TID PRN PRN Reason: fever or pain Amlodipine Besylate (Amlodipine Besylate 10 Mg Tablet) 10 mg PO DAILY [facility]; Protocol Last Admin: 12/09/22 09:38 Dose: 10 mg Documented By: EUGENE Aspirin (Aspirin 81 Mg Tab.Chew) 81 mg PO DAILY [facility] Last Admin: 12/07/22 07:49 Dose: 81 mg Documented By: RHIANNA Atorvastatin Calcium (Atorvastatin Calcium 40 Mg Tablet) 40 mg PO BEDTIME [facility] Last Admin: 12/08/22 20:22 Dose: 40 mg Documented By: RHIANNA Atorvastatin Calcium (Atorvastatin Calcium 40 Mg Tablet) 40 mg PO BEDTIME [facility] Last Admin: 12/08/22 20:23 Dose: Not Given Documented By: RHIANNA Non-Admin Reason: Duplicate Order Carvedilol (Carvedilol 6.25 Mg Tablet) 6.25 mg PO BID [facility]; Protocol Last Admin: 12/09/22 09:37 Dose: 6.25 mg Documented By: EUGENE Famotidine (Famotidine 20 Mg Tablet) 20 mg PO DAILY [facility] Last Admin: 12/09/22 09:37 Dose: 20 mg Documented By: EUGENE Ferrous Sulfate (Ferrous Sulfate 324 Mg Tablet.Dr) 324 mg PO DAILY [facility] Last Admin: 12/09/22 09:38 Dose: 324 mg Documented By: EUGENE Fluticasone Propionate (Fluticasone Propionate Nasal 16 Gm [place]) 1 spray NOSTRIL-B DAILY [facility] Last Admin: 12/09/22 09:40 Dose: 1 spray Documented By: EUGENE Gabapentin (Gabapentin 300 Mg Capsule) 300 mg PO BEDTIME [facility] Last Admin: 12/08/22 20:22 Dose: 300 mg Documented By: RHIANNA Glucose (Glucose Gel 15 Gm Gel..Gram.) 15 gm PO Q15M PRN; Protocol PRN Reason: per Hypoglycemia Standing Ord. Heparin Sodium (Porcine) (Heparin Sodium,Porcine 5,000 Unit/Ml Vial) 5,000 unit SUBCUT Q8H [facility] Last Admin: 12/08/22 05:34 Dose: Not Given Documented By: SHELBY Non-Admin Reason: permacath placement today Hydralazine HCl (Hydralazine Hcl 25 Mg Tablet) 25 mg PO TID [facility]; Protocol Last Admin: 12/09/22 09:37 Dose: 25 mg Documented By: EUGENE Dextrose (D10) 250 mls @ 750 mls/hr IV Q15M PRN; Protocol PRN Reason: per Hypoglycemia Standing Ord. Insulin Human Lispro (Insulin Lispro 100 Unit/Ml 3 Ml Vial) 0 unit SUBCUT QIDACHS [facility]; Protocol Last Admin: 12/09/22 09:32 Dose: Not Given Documented By: EUGENE Non-Admin Reason: No Insulin Coverage Mannitol (Mannitol 12.5 Gm/50 Ml Vial) 12.5 gm IV ONCE ONE Stop: 12/09/22 14:40 Melatonin (Melatonin 3 Mg Tablet) 6 mg PO BEDTIME PRN PRN Reason: Insomnia Last Admin: 12/07/22 20:16 Dose: 6 mg Documented By: SHELBY Mirtazapine (Mirtazapine 15 Mg Tablet) 15 mg PO BEDTIME [facility] Last Admin: 12/08/22 20:37 Dose: 15 mg Documented By: RHIANNA Non-Formulary Medication (Ledipasvir-Sofosbuvir) 1 tab PO DAILY [facility] Non-Formulary Medication (Patiromer Calcium Sorbitex [Veltassa]) 8.4 gm PO DAILY [facility] Omeprazole (Omeprazole 20 Mg Capsule.Dr) 20 mg PO DAILY [facility] Last Admin: 12/09/22 09:41 Dose: 20 mg Documented By: EUGENE Senna (Sennosides 8.6 Mg Tablet) 17.2 mg PO BEDTIME PRN PRN Reason: Constipation Sodium Bicarbonate (Sodium Bicarbonate 650 Mg Tablet) 650 mg PO BID [facility] Last Admin: 12/09/22 09:38 Dose: 650 mg Documented By: EUGENE Sodium Chloride (0.9 % Sodium Chloride Flush 3 Ml Syringe) 3 ml IVFLUSH QSHIFT [facility] Last Admin: 12/09/22 09:38 Dose: 3 ml Documented By: EUGENE Vitamin D (Cholecalciferol (Vitamin D3) 25 Mcg Tablet) 50 mcg PO DAILY [facility] Last Admin: 12/09/22 09:37 Dose: 50 mcg Documented By: EUGENE Labs 12/07/22 00:37 12/09/22 06:52 Labs: Laboratory Results - last 24 hr 12/08/22 12/08/22 12/09/22 17:50 20:47 06:52 Anion Gap 14 Estim Creat Clear Calc 9.3 Estimated GFR 7 POC Glucose 113 149 H Random Glucose 129 H Calcium 7.9 L Phosphorus 6.5 H 12/09/22 08:01 Anion Gap Estim Creat Clear Calc Estimated GFR POC Glucose 141 H Random Glucose Calcium Phosphorus Assessment and Plan (1) ESRD (end stage renal disease): Status: Acute (2) Hypertensive emergency: Status: Acute (3) Acute CHF: Status: Acute Plan 62-year-old male with a past medical history of hypertension, hyperlipidemia, diabetes, polysubstance abuse, history of hep C, CKD into the hospital today with a chief complaint of shortness of breath.? Admitted for following Shortness of breath:?In the setting of fluid overload secondary to worsening renal insufficiency/question CHF(HfpEf). ProBNP elevated to 2900 Echocardiogram:The left ventricular systolic function is moderately decreased. The visually estimated ejection fraction is between 35-40%.? ? ? - There is moderately increased left ventricular wall thickness. - No obvious valvular pathology seen on this study. Received 100 mg Lasix early in the morning Monitor I's and O's: 3.5liter neg and daily weights(no recent or baseline weight available) Initial troponin 43.7-71 in setting of reduced clearance from renal insufficiency/uncontrolled htn.? Patient denies any chest pain.? EKG nonischemic cardio and nephro eval noted-added permacath, continue? lasix for now adjuted. INO on CKD/metabolic acidosis: Unknown recent baseline creatinine.? Creatinine was 1.9 about 2 years ago.? as per patient service now developer -cr bumpin up over months has hyperphosphatemia due to advanced kidney disease. Creatinine on presentation is 10 Avoid nephrotoxins Patient is on dialysis, low-phosphorous diet,nephrofollowup pending Hypertensive uncontrolled :? Patient mentioned that he has been not taking his home medications for the past couple days. started home meds -amlodipine 10 mg,stop hctz less likely to help with gfr<10,added coreg,continue lasix. Diabetes: acceptable ?fs with sliding scale coverage ,? Will hold off on the long-acting insulin for now given severe renal insufficiency. DVTppx: SQH inaptient need :? Advanced renal disease with uncontrolled hypertension-need monitoring for shortness of breath and blood pressure control as well as patient need PermCath for possible dialysis.? In addition patient also need electrolytic and renal function monitoring.? Time Spent With Patient Time: Total time managing care of this patient today ____ minutes. Quality Stroke Does the patient have a stroke diagnosis?: No VTE Prior VTE?: No VTE Risk Level:: Medical - moderate - high VTE Device Contraindication: Treatment Not Indicated VTE Drug Contraindication: N/A - Med Ordered
[2022-12-09] MEDS: Furosemide 100 MG/10 ML VIAL 80 MG IVPUSH (14:29)
[2022-12-09] MEDS: Heparin Sodium,Porcine 5,000 UNIT/ML VIAL 5000 UNIT SUBCUT ×2 (14:30→21:00)
[2022-12-09 15:26] VITALS: BP 169/83; PULSE 69; RESP 20; TEMP 37.1; O2SAT 98
[2022-12-09 16:11] LABS: Glucose, Whole Blood 277 mg/dL (60-115)
[2022-12-09] MEDS: Insulin Lispro 100 UNIT/ML 3 ML VIAL SUBCUT (17:28)
[2022-12-09 19:01] VITALS: BP 162/84; PULSE 72; RESP 18; TEMP 37; O2SAT 97
[2022-12-09] MEDS: Atorvastatin Calcium 40 MG TABLET PO (20:59)
[2022-12-09] MEDS: Mirtazapine 15 MG TABLET PO (20:59)
[2022-12-09] MEDS: Gabapentin 300 MG CAPSULE PO (20:59)
[2022-12-09 21:54] LABS: Glucose, Whole Blood 118 mg/dL (60-115)
--- NOTE | 2022-12-09 22:18 | P.PNNP_ITS ---
Subjective Subjective Date of Service: 12/09/22 Interval history: Seen on Hd Has dizziness Physical Exam Vital Signs: Vital Signs: Last Vital Signs Temp 98.6 F 12/09/22 19:01 Pulse 72 12/09/22 19:01 Resp 18 12/09/22 19:01 BP 162/84 H 12/09/22 19:01 Pulse Ox 97 12/09/22 19:01 O2 Del Method 12/09/22 19:01 O2 Flow Rate 1 12/07/22 02:24 BMI result Body Mass Index 22.4 Appearance: Alert.? Oriented X3.? cvs: rrr, [id number]. res: fair air entry,no rales or wheezin abd: no rebound or guarding ,nt, bs present. ext pulses present , no cyanosis. neuro: axo3 , nonfocal. Objective Data Labs 12/07/22 00:37 12/09/22 06:52 Labs: Laboratory Results - last 24 hr 12/09/22 12/09/22 12/09/22 06:52 08:01 16:08 Sodium 136 Potassium 5.0 Chloride 108 Carbon Dioxide 19 L Anion Gap 14 BUN 47 H Creatinine 7.86 H* Estim Creat Clear Calc 9.3 Estimated GFR 7 POC Glucose 141 H 277 H Random Glucose 129 H Calcium 7.9 L Phosphorus 6.5 H 12/09/22 20:34 Sodium Potassium Chloride Carbon Dioxide Anion Gap BUN Creatinine Estim Creat Clear Calc Estimated GFR POC Glucose 118 H Random Glucose Calcium Phosphorus Procedures Date of Service Date of Service: 12/09/22 Assessment & Plan Assessment and plan (1) ESRD (end stage renal disease): Status: Acute Assessment and Plan: 1. End-stage renal disease.? I had a long discussion with him regarding going on dialysis.? He understands that without dialysis there is a high likelihood that he will within the next several weeks and he now wants to go on dialysis.? I explained to have dialysis performed and that we need to place a dialysis catheter and he is agreeable to going forward with this. 2. Hyperkalemia.? He got dose of Lokelma.? We will continue to monitor him on low-potassium diet. 3. Hypervolemia.? He is on Lasix and increased urine output.? Breathing better. 4. Hypertension.? Blood pressure is doing better. 5. Depressed serum bicarb.? We will monitor this as he may need supplementation. ? RECOMMENDATIONS:? At this time include: 1. Continue HD 2. HD again on sunday 3 s/p . PermCath placement 4.We are setting up Obtaining outpatient dialysis spot.? He is concerned that he lives on the 2nd floor and that also about what transportation would be available to him from the dialysis unit.? I explained to him that this would be coordinated through the case fitter and web content & social media manager at the outpatient dialysis unit along with the help of the team at the hospital to coordinate his transportation to and from the dialysis center. . We will follow the patient closely with the team. ?. ? Time Spent With Patient Time: Total time managing care of this patient today ____ minutes. Progress Note: Quality Stroke Does the patient have a stroke diagnosis?: No
[2022-12-09 23:20] VITALS: BP 148/66; PULSE 76; RESP 16; TEMP 36.8; O2SAT 95
[2022-12-10 04:00] VITALS: BP 169/83; PULSE 63; RESP 16; TEMP 37.3; O2SAT 97
[2022-12-10] MEDS: Heparin Sodium,Porcine 5,000 UNIT/ML VIAL 5000 UNIT SUBCUT ×3 (05:54→20:41)
[2022-12-10 06:00] VITALS: BMI 22.3
[2022-12-10 08:00] VITALS: BP 163/79; PULSE 67; RESP 14; TEMP 36.7; O2SAT 95
[2022-12-10 08:22] LABS: Blood Urea Nitrogen 33 mg/dL (9-16); Calcium 7.6 mg/dL (8.4-10.2); Creatinine Clr Calc Pharmacy 12.4; Estimated Glomerular Filt Rate 10; Glucose Random 132 mg/dL (60-115)
[2022-12-10 08:29] LABS: Anion Gap 13 (12-20); Carbon Dioxide 27 mmol/L (22-29); Chloride 103 mmol/L (96-108); Potassium 3.9 mmol/L (3.3-5.1); Sodium 139 mmol/L (135-145)
[2022-12-10 08:40] LABS: Glucose, Whole Blood 113 mg/dL (60-115)
[2022-12-10] MEDS: Cholecalciferol (Vitamin D3) 25 MCG TABLET 50 MCG PO (09:11)
[2022-12-10] MEDS: 0.9 % Sodium Chloride Flush 3 ML SYRINGE IVFLUSH ×3 (09:11→20:44)
[2022-12-10] MEDS: Aspirin 81 MG TAB.CHEW PO (09:11)
[2022-12-10] MEDS: hydrALAZINE HCl 50 MG TABLET PO (09:11)
[2022-12-10] MEDS: Sodium Bicarbonate 650 MG TABLET PO (09:11)
[2022-12-10] MEDS: Ferrous Sulfate 324 MG TABLET.DR PO (09:11)
[2022-12-10] MEDS: Omeprazole 20 MG CAPSULE.DR PO (09:12)
[2022-12-10] MEDS: carvediloL 6.25 MG TABLET PO ×2 (09:12→20:40)
[2022-12-10] MEDS: amLODIPine Besylate 10 MG TABLET PO (09:12)
[2022-12-10] MEDS: Famotidine 20 MG TABLET PO (09:12)
--- NOTE | 2022-12-10 11:03 | PM.PNCARD ---
Subjective Subjective Date of Service: 12/10/22 Interval history: He stating that he is feeling a bit dizzy but no other complaints like angina or shortness of breath. Initially was refusing dialysis but now it seems that he is actually on dialysis. Review of Systems Review of Systems Yes all other systems are reviewed and are negative Constitutional: Reports as per HPI and Reports no additional constitutional complaints Eyes: Reports as per HPI and Denies no additional eye complaints Denies system reviewed and no additional complaints, except as documented and Reports as per HPI Cardiovascular: Reports as per HPI, Reports no additional cardiovascular complaints, Denies acrocyanosis, Denies cool extremities, Denies chest pain, Denies leg edema, Denies lightheadedness, Denies palpitations and Denies dyspnea Respiratory: Reports as per HPI, Denies no additional respiratory complaints and Denies dyspnea Gastrointestinal: Reports as per HPI and Denies no additional gastrointestinal complaints Genitourinary: Reports no additional male genitourinary complaints and Reports as per HPI Musculoskeletal: Reports no additional musculoskeletal complaints and Reports as per HPI Skin/Breast: Reports system reviewed and no additional complaints, except as docu Reports system reviewed and no additional complaints, except as documented and Reports as per HPI Psychiatric: Reports no additional psychiatric complaints and Reports as per HPI Endocrine: Reports no additional endocrine complaints, Reports as per HPI and Denies palpitations Hematologic/Lymphatic: Reports no additional hematologic/lymphatic complaints and Reports as per HPI Allergic/Immunologic: Reports no additional allergic/immunologic complaints and Reports as per HPI Physical Exam Vital Signs: Last Vital Signs Temp 98.0 F 12/10/22 08:00 Pulse 67 12/10/22 08:00 Resp 14 12/10/22 08:00 BP 163/79 H 12/10/22 08:00 Pulse Ox 95 12/10/22 08:00 O2 Del Method 12/10/22 08:00 O2 Flow Rate 1 12/07/22 02:24 BMI result Body Mass Index 22.3 Const General: comfortable and no acute distress Orientation/consciousness: patient oriented x3 HEENT Other: Unremarkable Head: Yes normal to inspection Neck Neck: Yes normal visual inspection Chest Chest palpation & inspection: normal inspection of the chest Resp Auscultation: clear to auscultation bilaterally Cardio Palpation: normal PMI Heart sounds: S1 normal heart sound present, S2 normal heart sound present, no gallops, no murmurs and no rubs GI Palpation (GI): Soft to palpation Back/Spine/Pelvis Other: unremarkable Skin General skin exam: no rashes or lesions noted Neuro General: patient oriented x3 Extrem General: Yes normal to inspection Psych Mental Status: mental status grossly normal Objective Labs and Meds 12/07/22 00:37 12/10/22 07:47 Lab results: Laboratory Results - last 24 hr 12/09/22 12/09/22 12/10/22 16:08 20:34 07:47 Sodium 139 Potassium 3.9 D Chloride 103 Carbon Dioxide 27 Anion Gap 13 BUN 33 H Creatinine 5.88 H* Estim Creat Clear Calc 12.4 Estimated GFR 10 POC Glucose 277 H 118 H Random Glucose 132 H Calcium 7.6 L 12/10/22 08:18 Sodium Potassium Chloride Carbon Dioxide Anion Gap BUN Creatinine Estim Creat Clear Calc Estimated GFR POC Glucose 113 Random Glucose Calcium Progress Note: A&P Assessment and plan (1) Acute CHF: Status: Acute (2) Acute renal failure: Status: Acute (3) Hypertensive emergency: Status: Acute Plan Data reviewed. Blood pressures have been as high as 220/121 mmHg upon arrival; improved since then. Creatinine is more than 10. A prior value from 2 years ago is 1.9. Cardiac BNP 2900. High sensitivity troponins are 43 and 72. Echocardiogram with LVEF of 35-40%. Moderate LVH. Overall, acute renal failure precipitating acute heart failure. Etiology for cardiac dysfunction could be nonischemic cardiomyopathy from hypertension. Could also have underlying coronary disease. He was refusing dialysis but it seems he has agreed now. At this time, optimize from renal standpoint. From cardiac, continue carvedilol. Otherwise, blood pressure management. If able to come to office, can follow up and do the needful. However not sure he he will actually come based on interaction so far. Discussed with Dr. Jerome. Time Spent With Patient Time: Total time managing care of this patient today ____ minutes. Progress Note: Quality Stroke Does the patient have a stroke diagnosis?: No Procedures Date of Service Date of Service: 12/10/22
[2022-12-10 11:29] VITALS: BP 126/61; PULSE 71; RESP 12; TEMP 36.7; O2SAT 97
[2022-12-10 11:36] LABS: Glucose, Whole Blood 218 mg/dL (60-115)
--- NOTE | 2022-12-10 12:40 | P.PNIM_ITS ---
Subjective Subjective Date of Service: 12/10/22 Interval History: htn ,advanved renal disase Review of Systems Seems to feeling better except some generalized weakness. Denies any chest pain or shortness of breath or fever chills. Physical Exam Vital Signs: Vital Signs: Last Vital Signs Temp 98.0 F 12/10/22 11:29 Pulse 71 12/10/22 11:29 Resp 12 12/10/22 11:29 BP 126/61 12/10/22 11:29 Pulse Ox 97 12/10/22 11:29 O2 Del Method 12/10/22 11:29 O2 Flow Rate 1 12/07/22 02:24 BMI result Body Mass Index 22.3 Appearance: Alert.? Oriented X3.? cvs: rrr, [id number]. res: fair air entry,no rales or wheezin abd: no rebound or guarding ,nt, bs present. ext pulses present , no cyanosis. neuro: axo3 , nonfocal. Objective Data Active Medications Acetaminophen (Acetaminophen 325 Mg Tablet) 650 mg PO Q6H PRN PRN Reason: Pain, Mild (Pain Scale 1-3) Last Admin: 12/08/22 20:22 Dose: 650 mg Documented By: RHIANNA Acetaminophen (Acetaminophen 325 Mg Tablet) 650 mg PO TID PRN PRN Reason: fever or pain Amlodipine Besylate (Amlodipine Besylate 10 Mg Tablet) 10 mg PO DAILY [facility]; Pro tocol Last Admin: 12/10/22 09:12 Dose: 10 mg Documented By: EUGENE Aspirin (Aspirin 81 Mg Tab.Chew) 81 mg PO DAILY [facility] Last Admin: 12/10/22 09:11 Dose: 81 mg Documented By: EUGENE Atorvastatin Calcium (Atorvastatin Calcium 40 Mg Tablet) 40 mg PO BEDTIME [facility] Last Admin: 12/09/22 20:59 Dose: 40 mg Documented By: VIKTOR Atorvastatin Calcium (Atorvastatin Calcium 40 Mg Tablet) 40 mg PO BEDTIME [facility] Last Admin: 12/09/22 21:00 Dose: Not Given Documented By: VIKTOR Non-Admin Reason: duplicacat Carvedilol (Carvedilol 6.25 Mg Tablet) 6.25 mg PO BID [facility]; Protocol Last Admin: 12/10/22 09:12 Dose: 6.25 mg Documented By: EUGENE Famotidine (Famotidine 20 Mg Tablet) 20 mg PO DAILY [facility] Last Admin: 12/10/22 09:12 Dose: 20 mg Documented By: EUGENE Ferrous Sulfate (Ferrous Sulfate 324 Mg Tablet.Dr) 324 mg PO DAILY [facility] Last Admin: 12/10/22 09:11 Dose: 324 mg Documented By: EUGENE Fluticasone Propionate (Fluticasone Propionate Nasal 16 Gm [place]) 1 spray NOSTRIL-B DAILY [facility] Last Admin: 12/09/22 09:40 Dose: 1 spray Documented By: EUGENE Gabapentin (Gabapentin 300 Mg Capsule) 300 mg PO BEDTIME [facility] Last Admin: 12/09/22 20:59 Dose: 300 mg Documented By: VIKTOR Glucose (Glucose Gel 15 Gm Gel..Gram.) 15 gm PO Q15M PRN; Protocol PRN Reason: per Hypoglycemia Standing Ord. Heparin Sodium (Porcine) (Heparin Sodium,Porcine 5,000 Unit/Ml Vial) 5,000 unit SUBCUT Q8H [facility] Last Admin: 12/10/22 05:54 Dose: 5,000 unit Documented By: VIKTOR Hydralazine HCl (Hydralazine Hcl 50 Mg Tablet) 50 mg PO TID [facility]; Protocol Last Admin: 12/10/22 09:11 Dose: 50 mg Documented By: EUGENE Dextrose (D10) 250 mls @ 750 mls/hr IV Q15M PRN; Protocol PRN Reason: per Hypoglycemia Standing Ord. Insulin Human Lispro (Insulin Lispro 100 Unit/Ml 3 Ml Vial) 0 unit SUBCUT QIDACHS [facility]; Protocol Last Admin: 12/10/22 08:53 Dose: Not Given Documented By: EUGENE Non-Admin Reason: No Insulin Coverage Melatonin (Melatonin 3 Mg Tablet) 6 mg PO BEDTIME PRN PRN Reason: Insomnia Last Admin: 12/07/22 20:16 Dose: 6 mg Documented By: SHELBY Mirtazapine (Mirtazapine 15 Mg Tablet) 15 mg PO BEDTIME [facility] Last Admin: 12/09/22 20:59 Dose: 15 mg Documented By: VIKTOR Non-Formulary Medication (Ledipasvir-Sofosbuvir) 1 tab PO DAILY [facility] Non-Formulary Medication (Patiromer Calcium Sorbitex [Veltassa]) 8.4 gm PO DAILY [facility] Omeprazole (Omeprazole 20 Mg Capsule.) 20 mg PO DAILY [facility] Last Admin: 12/10/22 09:12 Dose: 20 mg Documented By: EUGENE Senna (Sennosides 8.6 Mg Tablet) 17.2 mg PO BEDTIME PRN PRN Reason: Constipation Sodium Bicarbonate (Sodium Bicarbonate 650 Mg Tablet) 650 mg PO BID [facility] Last Admin: 12/10/22 09:11 Dose: 650 mg Documented By: EUGENE Sodium Chloride (0.9 % Sodium Chloride Flush 3 Ml Syringe) 3 ml IVFLUSH QSHIFT [facility] Last Admin: 12/10/22 09:11 Dose: 3 ml Documented By: EUGENE Vitamin D (Cholecalciferol (Vitamin D3) 25 Mcg Tablet) 50 mcg PO DAILY [facility] Last Admin: 12/10/22 09:11 Dose: 50 mcg Documented By: EUGENE Labs 12/07/22 00:37 12/10/22 07:47 Labs: Laboratory Results - last 24 hr 12/09/22 12/09/22 12/10/22 16:08 20:34 07:47 Anion Gap 13 Estim Creat Clear Calc 12.4 Estimated GFR 10 POC Glucose 277 H 118 H Random Glucose 132 H Calcium 7.6 L 12/10/22 12/10/22 08:18 11:27 Anion Gap Estim Creat Clear Calc Estimated GFR POC Glucose 113 218 H Random Glucose Calcium Assessment and Plan (1) ESRD (end stage renal disease): Status: Acute (2) Hypertensive emergency: Status: Acute (3) Acute CHF: Status: Acute Plan 62-year-old male with a past medical history of hypertension, hyperlipidemia, diabetes, polysubstance abuse, history of hep C, CKD into the hospital today with a chief complaint of shortness of breath.? Admitted for following Shortness of breath:?In the setting of fluid overload secondary to worsening renal insufficiency/question CHF(HfpEf). ProBNP elevated to 2900 Echocardiogram:The left ventricular systolic function is moderately decreased. The visually estimated ejection fraction is between 35-40%.? ? ? - There is moderately increased left ventricular wall thickness. - No obvious valvular pathology seen on this study. Monitor I's and O's: 4liter neg and daily weights(no recent or baseline weight available) Initial troponin 43.7-71 in setting of reduced clearance from renal insufficiency/uncontrolled htn.? Patient denies any chest pain.? EKG nonischemic cardio and nephro eval noted-patient is status post PermCath as well as received dialysis, blood pressure is improving, discussed with Nephrology Lasix discontinued since patient on dialysis already. Possible end-stage renal disease :on dialysis now Patient is on dialysis, low-phosphorous diet hyperkalemia resolved with dialysis Conservative control of blood pressure, continue dialysis. Htn:? Fluctuating has mild ligheadness Will stop hydralazine, continue amlodipine and Coreg. Diabetes: acceptable ?fs with sliding scale coverage ,? Will hold off on the long-acting insulin for now given severe renal insufficiency. DVTppx: SQH inaptient need :? Advanced renal disease on hd -needs Hd spot arrangement . Time Spent With Patient Time: Total time managing care of this patient today ____ minutes. Quality Stroke Does the patient have a stroke diagnosis?: No VTE Prior VTE?: No VTE Risk Level:: Medical - moderate - high VTE Device Contraindication: Treatment Not Indicated VTE Drug Contraindication: N/A - Med Ordered
--- NOTE | 2022-12-10 12:51 | P.PNNP_ITS ---
Subjective Subjective Date of Service: 12/10/22 Interval history: htn ,advanced renal disease Comfortable Physical Exam Vital Signs: Vital Signs: Last Vital Signs Temp 98.0 F 12/10/22 11:29 Pulse 71 12/10/22 11:29 Resp 12 12/10/22 11:29 BP 126/61 12/10/22 11:29 Pulse Ox 97 12/10/22 11:29 O2 Del Method 12/10/22 11:29 O2 Flow Rate 1 12/07/22 02:24 BMI result Body Mass Index 22.3 Appearance: Alert.? Oriented X3.? cvs: rrr, [id number]. res: fair air entry,no rales or wheezin abd: no rebound or guarding ,nt, bs present. ext pulses present , no cyanosis. neuro: axo3 , nonfocal. Objective Data Labs 12/07/22 00:37 12/10/22 07:47 Labs: Laboratory Results - last 24 hr 12/09/22 12/09/22 12/10/22 16:08 20:34 07:47 Sodium 139 Potassium 3.9 D Chloride 103 Carbon Dioxide 27 Anion Gap 13 BUN 33 H Creatinine 5.88 H* Estim Creat Clear Calc 12.4 Estimated GFR 10 POC Glucose 277 H 118 H Random Glucose 132 H Calcium 7.6 L 12/10/22 12/10/22 08:18 11:27 Sodium Potassium Chloride Carbon Dioxide Anion Gap BUN Creatinine Estim Creat Clear Calc Estimated GFR POC Glucose 113 218 H Random Glucose Calcium Procedures Date of Service Date of Service: 12/10/22 Assessment & Plan Assessment and plan (1) ESRD (end stage renal disease): Status: Acute Assessment and Plan: 1. End-stage renal disease.?on HD now - new start. 2. Hyperkalemia.? resolved low-potassium diet. 3. Hypervolemia.?resolved 4. Hypertension.? Blood pressure is doing better. 5. Depressed serum bicarb.? We will monitor this as he may need supplementation. ? RECOMMENDATIONS:? At this time include: 1. Continue HD support 2. HD again on Sunday 3 No need for lasix 4.We are setting up Obtaining outpatient dialysis started on Sunday . .?Our team on Sunday will follow up - Pt lives in [facility]/ He is concerned that he lives on the 2nd floor and that also about what transportation would be available to him from the dialysis unit.?This needs to be coordinated through the leather case finisher and social problems specialist at the outpatient dialysis unit along with the help of the team at the hospital to coordinate his transportation to and from the dialysis center. Will d/c PO Bicarb and Amlodipine Will start Losartan 25 mg daily . We will follow the patient closely with the team. ?. ? Time Spent With Patient Time: Total time managing care of this patient today ____ minutes. Progress Note: Quality Stroke Does the patient have a stroke diagnosis?: No
[2022-12-10 15:15] VITALS: BP 134/69; PULSE 71; RESP 20; TEMP 37.3; O2SAT 95
[2022-12-10] MEDS: Insulin Lispro 100 UNIT/ML 3 ML VIAL SUBCUT ×3 (15:22→20:40)
[2022-12-10] MEDS: Fluticasone Propionate Nasal 16 GM SPRAY 1 SPRAY NOSTRIL-B (15:25)
[2022-12-10 16:28] LABS: Glucose, Whole Blood 166 mg/dL (60-115)
[2022-12-10 19:49] LABS: Glucose, Whole Blood 185 mg/dL (60-115)
[2022-12-10 19:52] VITALS: BP 176/84; PULSE 67; RESP 18; TEMP 37.1; O2SAT 98
[2022-12-10] MEDS: Mirtazapine 15 MG TABLET PO (20:40)
[2022-12-10] MEDS: Atorvastatin Calcium 40 MG TABLET PO (20:40)
[2022-12-10] MEDS: Gabapentin 300 MG CAPSULE PO (20:40)
[2022-12-11 03:20] VITALS: BP 157/74; PULSE 62; RESP 20; TEMP 36.9; O2SAT 95
[2022-12-11] MEDS: Heparin Sodium,Porcine 5,000 UNIT/ML VIAL 5000 UNIT SUBCUT ×2 (05:54→14:30)
[2022-12-11 06:00] VITALS: BMI 19.5
[2022-12-11 07:48] VITALS: BP 179/82; PULSE 65; RESP 18; TEMP 36.6; O2SAT 98
[2022-12-11 08:05] LABS: Glucose, Whole Blood 145 mg/dL (60-115)
[2022-12-11] MEDS: Cholecalciferol (Vitamin D3) 25 MCG TABLET 50 MCG PO (09:19)
[2022-12-11] MEDS: Aspirin 81 MG TAB.CHEW PO (09:19)
[2022-12-11] MEDS: carvediloL 6.25 MG TABLET PO ×2 (09:19→20:18)
[2022-12-11] MEDS: Ferrous Sulfate 324 MG TABLET.DR PO (09:19)
[2022-12-11] MEDS: 0.9 % Sodium Chloride Flush 3 ML SYRINGE IVFLUSH (09:19)
[2022-12-11] MEDS: Losartan Potassium 25 MG TABLET PO (09:19)
[2022-12-11] MEDS: Famotidine 20 MG TABLET PO (09:19)
[2022-12-11] MEDS: Omeprazole 20 MG CAPSULE.DR PO (09:19)
--- NOTE | 2022-12-11 11:00 | P.PNIM_ITS ---
Subjective Subjective Date of Service: 12/11/22 Interval History: htn ,advanved renal disase Review of Systems Seems to feeling better except some generalized weakness. Denies any chest pain or shortness of breath or fever chills. Physical Exam Vital Signs: Vital Signs: Last Vital Signs Temp 97.9 F 12/11/22 07:48 Pulse 65 12/11/22 07:48 Resp 18 12/11/22 07:48 BP 179/82 H 12/11/22 07:48 Pulse Ox 98 12/11/22 07:48 O2 Del Method 12/11/22 07:48 O2 Flow Rate 1 12/07/22 02:24 BMI result Body Mass Index 19.5 ?Appearance: Alert.? Oriented X3.? cvs: rrr, [id number]. res: fair air entry,no rales or wheezin abd: no rebound or guarding ,nt, bs present. ext pulses present , no cyanosis. neuro: axo3 , nonfocal. Objective Data Active Medications Acetaminophen (Acetaminophen 325 Mg Tablet) 650 mg PO Q6H PRN PRN Reason: Pain, Mild (Pain Scale 1-3) Last Admin: 12/08/22 20:22 Dose: 650 mg Documented By: RHIANNA Acetaminophen (Acetaminophen 325 Mg Tablet) 650 mg PO TID PRN PRN Reason: fever or pain Amlodipine Besylate (Amlodipine Besylate 2.5 Mg Tablet) 2.5 mg PO ONCE ONE; Pr otocol Stop: 12/11/22 11:00 Aspirin (Aspirin 81 Mg Tab.Chew) 81 mg PO DAILY [facility] Last Admin: 12/11/22 09:19 Dose: 81 mg Documented By: RHIANNA Atorvastatin Calcium (Atorvastatin Calcium 40 Mg Tablet) 40 mg PO BEDTIME [facility] Last Admin: 12/10/22 20:40 Dose: 40 mg Documented By: KYLIE Carvedilol (Carvedilol 6.25 Mg Tablet) 6.25 mg PO BID [facility]; Protocol Last Admin: 12/11/22 09:19 Dose: 6.25 mg Documented By: RHIANNA Famotidine (Famotidine 20 Mg Tablet) 20 mg PO DAILY [facility] Last Admin: 12/11/22 09:19 Dose: 20 mg Documented By: RHIANNA Ferrous Sulfate (Ferrous Sulfate 324 Mg Tablet.) 324 mg PO DAILY [facility] Last Admin: 12/11/22 09:19 Dose: 324 mg Documented By: RIHANNA Fluticasone Propionate (Fluticasone Propionate Nasal 16 Gm [place]) 1 spray NOSTRIL-B DAILY [facility] Last Admin: 12/11/22 09:23 Dose: Not Given Documented By: RHIANNA Non-Admin Reason: pt states not needed this morning Gabapentin (Gabapentin 300 Mg Capsule) 300 mg PO BEDTIME [facility] Last Admin: 12/10/22 20:40 Dose: 300 mg Documented By: KYLIE Glucose (Glucose Gel 15 Gm Gel..Gram.) 15 gm PO Q15M PRN; Protocol PRN Reason: per Hypoglycemia Standing Ord. Heparin Sodium (Porcine) (Heparin Sodium,Porcine 5,000 Unit/Ml Vial) 5,000 unit SUBCUT Q8H [facility] Last Admin: 12/11/22 05:54 Dose: 5,000 unit Documented By: KYLIE Dextrose (D10) 250 mls @ 750 mls/hr IV Q15M PRN; Protocol PRN Reason: per Hypoglycemia Standing Ord. Insulin Human Lispro (Insulin Lispro 100 Unit/Ml 3 Ml Vial) 0 unit SUBCUT QIDACHS [facility]; Protocol Last Admin: 12/11/22 08:11 Dose: Not Given Documented By: RHIANNA Non-Admin Reason: No Insulin Coverage Losartan Potassium (Losartan Potassium 25 Mg Tablet) 25 mg PO DAILY [facility]; Protocol Last Admin: 12/11/22 09:19 Dose: 25 mg Documented By: RHIANNA Melatonin (Melatonin 3 Mg Tablet) 6 mg PO BEDTIME PRN PRN Reason: Insomnia Last Admin: 12/07/22 20:16 Dose: 6 mg Documented By: SHELBY Mirtazapine (Mirtazapine 15 Mg Tablet) 15 mg PO BEDTIME [facility] Last Admin: 12/10/22 20:40 Dose: 15 mg Documented By: KYLIE Non-Formulary Medication (Ledipasvir-Sofosbuvir) 1 tab PO DAILY [facility] Non-Formulary Medication (Patiromer Calcium Sorbitex [Veltassa]) 8.4 gm PO DAILY [facility] Omeprazole (Omeprazole 20 Mg Capsule.) 20 mg PO DAILY [facility] Last Admin: 12/11/22 09:19 Dose: 20 mg Documented By: RHIANNA Senna (Sennosides 8.6 Mg Tablet) 17.2 mg PO BEDTIME PRN PRN Reason: Constipation Sodium Chloride (0.9 % Sodium Chloride Flush 3 Ml Syringe) 3 ml IVFLUSH QSHIFT [facility] Last Admin: 12/11/22 09:19 Dose: 3 ml Documented By: RHIANNA Vitamin D (Cholecalciferol (Vitamin D3) 25 Mcg Tablet) 50 mcg PO DAILY [facility] Last Admin: 12/11/22 09:19 Dose: 50 mcg Documented By: RHIANNA Labs 12/07/22 00:37 12/10/22 07:47 Labs: Laboratory Results - last 24 hr 12/10/22 12/10/22 12/10/22 11:27 16:18 19:38 POC Glucose 218 H 166 H 185 H 12/11/22 07:47 POC Glucose 145 H Assessment and Plan (1) ESRD (end stage renal disease): Status: Acute (2) Hypertensive emergency: Status: Acute (3) Acute CHF: Status: Acute Plan 62-year-old male with a past medical history of hypertension, hyperlipidemia, diabetes, polysubstance abuse, history of hep C, CKD into the hospital today with a chief complaint of shortness of breath.? Admitted for following Shortness of breath:?In the setting of fluid overload secondary to worsening renal insufficiency/question CHF(HfpEf). ProBNP elevated to 2900 Echocardiogram:The left ventricular systolic function is moderately decreased. The visually estimated ejection fraction is between 35-40%.? ? ? - There is moderately increased left ventricular wall thickness. - No obvious valvular pathology seen on this study. Monitor I's and O's: 4liter neg and daily weights(no recent or baseline weight available) Initial troponin 43.7-71 in setting of reduced clearance from renal insufficiency/uncontrolled htn.? Patient denies any chest pain.? EKG nonischemic cardio and nephro eval noted-patient is status post PermCath as well as received dialysis, blood pressure is improving, discussed with Nephrology Lasix discontinued since patient on dialysis already. Possible end-stage renal disease :on dialysis now Patient is on dialysis, low-phosphorous diet hyperkalemia resolved with dialysis Conservative control of blood pressure, continue dialysis. Htn:? Fluctuating has mild ligheadness Will stop hydralazine, added amlodipine and Coreg. Diabetes: acceptable ?fs with sliding scale coverage ,? Will hold off on the long-acting insulin for now given severe renal insufficiency. DVTppx: SQH inaptient need :? Advanced renal disease on hd -needs Hd spot arrangement . Time Spent With Patient Time: Total time managing care of this patient today ____ minutes. Quality Stroke Does the patient have a stroke diagnosis?: No VTE Prior VTE?: No VTE Risk Level:: Medical - moderate - high VTE Device Contraindication: Treatment Not Indicated VTE Drug Contraindication: N/A - Med Ordered
[2022-12-11] MEDS: amLODIPine Besylate 2.5 MG TABLET PO ×2 (11:21→17:22)
[2022-12-11 11:34] VITALS: BP 157/95; PULSE 67; RESP 18; TEMP 36.6; O2SAT 98
[2022-12-11 11:52] LABS: Glucose, Whole Blood 161 mg/dL (60-115)
[2022-12-11] MEDS: Insulin Lispro 100 UNIT/ML 3 ML VIAL SUBCUT (12:04)
--- NOTE | 2022-12-11 12:36 | MHC.CM.PN ---
CM reached out to Dr. Villaseñor and per his message on [place] text/as instructed, called his office at [phone] and CM awaits a return call regarding which HD center will Patient be going to/what days/what time etc. CM will follow.
--- NOTE | 2022-12-11 13:37 | MHC.CM.PN ---
Per Rigoberto from [facility], the HD Clinic that Patient is set up with must be contracted with the [facility]; Rigoberto will be calling Dr. Villaseñor's office directly to discuss contracted HD Clinics. CM will follow. Rigoberto has confirmed that [facility] will provide transportation to HD.
[2022-12-11 15:38] VITALS: BP 178/87; PULSE 67; RESP 17; TEMP 36.8; O2SAT 96
[2022-12-11 16:52] LABS: Glucose, Whole Blood 121 mg/dL (60-115)
[2022-12-11 19:25] VITALS: BP 181/77; PULSE 67; RESP 17; TEMP 36.9; O2SAT 97
--- NOTE | 2022-12-11 19:35 | P.PNNP_ITS ---
Subjective Subjective Date of Service: 12/11/22 Interval history: Events noted. All recent data reviewed Physical Exam Vital Signs: Vital Signs: Last Vital Signs Temp 98.4 F 12/11/22 19:25 Pulse 67 12/11/22 19:25 Resp 17 12/11/22 19:25 BP 181/77 H 12/11/22 19:25 Pulse Ox 97 12/11/22 19:25 O2 Del Method 12/11/22 19:25 O2 Flow Rate 1 12/07/22 02:24 BMI result Body Mass Index 19.5 Const: General: comfortable Eyes: EOM: EOMs intact bilaterally Neck: Neck: Yes supple Resp: Auscultation: diminished lung sounds Cardio: Rate: regular rate GI: Palpation (GI): Soft to palpation Skin: General skin exam: no rashes or lesions noted Neuro: General: moves all extremities Objective Data Labs 12/07/22 00:37 12/10/22 07:47 Labs: Laboratory Results - last 24 hr 12/10/22 12/11/22 12/11/22 19:38 07:47 11:35 POC Glucose 185 H 145 H 161 H 12/11/22 16:38 POC Glucose 121 H Procedures Date of Service Date of Service: 12/11/22 Assessment & Plan Assessment and plan (1) ESRD (end stage renal disease) on dialysis: Status: Acute Assessment and Plan: End-stage renal disease.?on HD now - new start. Hypertension.? Blood pressure is doing better. ? Continue HD TTS Has an outpt HD spot in [facility] HD Unit TTS first shift Room Service Server needs to liase with clinical surveillance manager in [facility] May need to increase losartan; Shall closely F/U. Time Spent With Patient Time: Total time managing care of this patient today ____ minutes. Progress Note: Quality Stroke Does the patient have a stroke diagnosis?: No
[2022-12-11] MEDS: Gabapentin 300 MG CAPSULE PO (20:18)
[2022-12-11] MEDS: Mirtazapine 15 MG TABLET PO (20:18)
[2022-12-11] MEDS: Melatonin 3 MG TABLET 6 MG PO (20:19)
[2022-12-11 20:45] LABS: Glucose, Whole Blood 203 mg/dL (60-115)
[2022-12-11 23:48] VITALS: BP 143/67; PULSE 61; RESP 16; TEMP 36.4; O2SAT 96
[2022-12-12 03:14] VITALS: BP 158/74; PULSE 67; RESP 17; TEMP 37.1; O2SAT 96
[2022-12-12 06:00] VITALS: BMI 24.1
[2022-12-12 07:24] LABS: Glucose, Whole Blood 127 mg/dL (60-115)
[2022-12-12 07:37] VITALS: BP 158/74; PULSE 65; RESP 20; TEMP 36.7; O2SAT 95
[2022-12-12 07:42] LABS: Anion Gap 15 (12-20); Blood Urea Nitrogen 69 mg/dL (9-16); Calcium 8.2 mg/dL (8.4-10.2); Carbon Dioxide 23 mmol/L (22-29); Chloride 105 mmol/L (96-108); Creatinine Clr Calc Pharmacy 8.4; Estimated Glomerular Filt Rate 6; Glucose Random 134 mg/dL (60-115); Potassium 4.5 mmol/L (3.3-5.1); Sodium 138 mmol/L (135-145)
[2022-12-12] MEDS: Famotidine 20 MG TABLET PO (08:15)
[2022-12-12] MEDS: Ferrous Sulfate 324 MG TABLET.DR PO (08:15)
[2022-12-12] MEDS: Losartan Potassium 25 MG TABLET PO (08:15)
[2022-12-12] MEDS: Omeprazole 20 MG CAPSULE.DR PO (08:15)
[2022-12-12] MEDS: amLODIPine Besylate 5 MG TABLET PO (08:15)
[2022-12-12] MEDS: carvediloL 6.25 MG TABLET PO (08:15)
[2022-12-12] MEDS: 0.9 % Sodium Chloride Flush 3 ML SYRINGE IVFLUSH ×2 (08:15→14:00)
[2022-12-12] MEDS: Cholecalciferol (Vitamin D3) 25 MCG TABLET 50 MCG PO (08:15)
[2022-12-12] MEDS: Aspirin 81 MG TAB.CHEW PO (08:16)
[2022-12-12] MEDS: Fluticasone Propionate Nasal 16 GM SPRAY 1 SPRAY NOSTRIL-B (08:16)
--- NOTE | 2022-12-12 10:22 | MHC.CM.PN ---
It appears that Nephrology has arranged outpatient HD at [facility], where Patient's insurance/[facility] program is NOT contracted with. BERNICE called Dr. Vera's office but the office is closed today d/t bad weather. BERNICE spoke with the Answering Services and awaits a return call from Dr. Vera in order to again(Rigoberto from [facility] informed office yesterday of contracted facilities/HD Clinics) provide him with contracted HD clinics that can be used for this Patient's insurance. CM awaits a return call from Nephrology/Dr. Vera.
--- NOTE | 2022-12-12 10:40 | P.DS_ITS ---
DS: Providers Provider Date of Service: 12/13/22 Date of admission: 12/07/22 02:21 Primary care physician: Shlomo Mcallister DO Consults: 12/07/22 02:20 Consult to Nephrology Routine Consulting Provider: Roly Vera Reason for consultation: ness; acidosis 12/07/22 07:21 Consult to Cardiology Routine Consulting Provider: [facility] Cardiovascular Services Reason for consultation: elevated trops/lateral leads t wave inversions Has provider been notified: No DS: Diagnosis Discharge Diagnosis (1) ESRD (end stage renal disease) on dialysis: Status: Acute DS: Summary Hospital Course Hospital Course: Chief Complaint: SOB 62-year-old male with a past medical history of hypertension, hyperlipidemia, diabetes, polysubstance abuse, history of hep C, CKD into the hospital today with a chief complaint of shortness of breath.? Patient mentioned that for the past couple days he has been having shortness of breath especially on exertion.? Also has orthopnea.? Denies any chest pain or palpitations.? Denies any fever chills cough or sputum production.? Mentioned that he had recently seen the primary care and had blood work done and noted to have worsening kidney function and was suggested he might need dialysis but he mentions that he does not to want to go for dialysis.? Currently denies any abdominal pain nausea vomiting or diarrhea.? Mentioned that he still makes urine.? Denies any headaches numbness tingling.? Patient denies any leg pains or falls.? Review of all other systems is negative except mentioned above ER course: Per ER team, patient noted to have significantly short of breath, placed on supplemental oxygen, not in respiratory distress.? Breathing comfortably on speaks in full sentences.? Noted to have bilateral crackles concerning for fluid overload.? Patient was given Lasix in the ER.? On labs noted to have elevated creatinine of 10 compared to prior values of creatinine 1.9 about 2 years ago; but patient does report that he had recent work blood work at [facility] with worsening kidney function.? Also noted a mild acidosis with a serum bicarb of 15; patient was given bicarb 1 ampule in the ER.? EKG was nonischemic; CT abdomen pelvis showed anasarca and pulmonary congestion; admitted to the hospital for further management Hospital course: This patient with advanced kidney disease presented with shortness of breath and clinical finding Hypertension emergency, fluid oveload as result of kidney disease that has reached end stage with markedly elevated Creatine and therefore diuretics were inadequate and also had metabolic acidosis related to the renal failure. He had a temporarily dialysis catheter inserted on 12/08 and initiated on hemodialysis with ultrafiltration with now resolution in shortness of breath Metabolic acidosis--resolved with dialysis Hypertension emegency--resolved, medication have been adjusted with addition of Losartan and Coreg, HCTZ and Hydrlazine discontinued and to continue Norvasc, further adjustement maybe done on outpatient basis Diabetes to continue usual home insulin Time Spent with Patient Time attestation: Total time managing care of this patient today ____ minutes. Discharge coordination time: Greater than 30 minutes Quality: Safe Use of Opioids Does Pt have an Active Cancer Diagnosis on the Problem List?: No Quality: Stroke Does the patient have a stroke diagnosis?: No Physical Exam Vital Signs: Vital Signs: Last Vital Signs Temp 98.4 F 12/12/22 13:32 Pulse 81 12/12/22 13:32 Resp 20 12/12/22 15:59 BP 167/77 H 12/12/22 15:59 Pulse Ox 98 12/12/22 13:32 O2 Del Method 12/12/22 15:36 O2 Flow Rate 1 12/07/22 02:24 BMI result Body Mass Index 24.1 DS: Data Data Completed and Pending Labs on day of discharge: Laboratory Results - last 24 hr 12/12/22 13:21 POC Glucose 125 H Discharge Plan Discharge Anticipated Discharge Date/Time: 12/12/22 15:35 Patient Disposition: Home Health Service Discharge Diagnosis: Acute CHF, accelerated HTN, Referrals: [facility] [Other] - 1 Week Shlomo Mcallister DO [Primary Care Provider] - 1 Week Discharge Medications: New carvedilol 6.25 mg Tablet 6.25 mg PO BID Qty: 60 0RF Protocol: Hold for SBP/HR < HOLD for SBP < : 90 HOLD for HR < : 60 losartan 50 mg tablet 50 mg PO DAILY Qty: 30 0RF Continued (DME) lancets 28 gauge misc See Rx Instructions topical DIRECTED Qty: 100 2RF Rx Instructions: use one lancet as needed to test blood sugar (DME) Comfort EZ Pen [place] 33 gauge x 5/16 needle See Rx Instructions .ROUTE .MEDSUPPLY Qty: 100 0RF Rx Instructions: tid prn (DME) FreeStyle Test Strip See Rx Instructions .ROUTE .MEDSUPPLY Qty: 100 2RF Rx Instructions: TID (DME) blood-glucose meter [FreeStyle Lite Meter] Kit See Rx Instructions .Route Qty: 1 0RF Rx Instructions: Patient to check blood sugar three times daily quetiapine 25 mg tablet See Rx Instructions PO BEDTIME 30 Days Qty: 90 2RF Rx Instructions: One tablet in the morning and 2 at bedtime orally meclizine 25 mg tablet 25 mg PO BID-TID PRN (Reason: dizziness) 90 Days Qty: 90 0RF ferrous sulfate 325 mg (65 mg iron) tablet,delayed release (DR/EC) 325 mg PO DAILY 90 Days Qty: 90 0RF acetaminophen [Tylenol Extra Strength] 500 mg tablet 500 mg PO TID PRN (Reason: fever or pain) 90 Days Qty: 90 0RF (DME) Shower chair See Rx Instructions .Route .MEDSUPPLY Qty: 1 0RF Rx Instructions: As directed (DME) Shower grab bars See Rx Instructions .Route .MEDSUPPLY Qty: 2 0RF Rx Instructions: As directed (DME) pen needle, diabetic [Comfort EZ Pen [place]] 31 gauge x 1/4 needle See Rx Instructions .Route Qty: 100 2RF Rx Instructions: Use with insulin pen to administer sliding scale medication TID atorvastatin 40 mg tablet 1 tab PO BEDTIME aspirin 81 mg tablet,delayed release (DR/EC) 1 tab PO DAILY famotidine 20 mg tablet 1 tab PO DAILY amlodipine 10 mg tablet 1 tab PO DAILY gabapentin 300 mg capsule 1 cap PO BEDTIME mirtazapine 15 mg tablet 1 tab PO BEDTIME insulin aspart U-100 100 unit/mL (3 mL) insulin pen 10 - 22 unit SUBCUT TID insulin glargine [Lantus Solostar U-100 Insulin] 100 unit/mL (3 mL) insulin pen 40 unit SUBCUT DAILY cholecalciferol (vitamin D3) 50 mcg (2,000 unit) capsule 1 cap PO DAILY ledipasvir-sofosbuvir 90-400 mg tablet 1 tab PO DAILY Veltassa 8.4 gram powder in packet 8.4 g PO DAILY pantoprazole 20 mg tablet,delayed release (DR/EC) 1 tab PO DAILY (DME) pen needle, diabetic 32 gauge x 1/4 needle See Rx Instructions subcut .MEDSUPPLY Qty: 50 Rx Instructions: As directed (DME) blood sugar diagnostic Strip See Rx Instructions Not Applicable DIRECTED Qty: 10 Rx Instructions: As directed Discontinued hydrochlorothiazide 25 mg tablet 1 tab PO DAILY hydralazine 50 mg tablet 200 tab PO BID Discharge Orders: Discharge Order (Routine); Ordered 12/12/22 Ordered By: Enmanuel Varner Diet: Advance to usual diet Activity on Discharge: As tolerated Stand Alone Forms: Patient Portal Discharge page Care Plan Goals: control of blood pressure and prevent fluid overload Health Concerns: advanced kidney failure difficult to control blood pressure Plan of Treatment: Take all your medication as prescribed Stop taking Hydrochlorothiazide stop taking hydralzine 200 mg twice Take Coreg (Carvedilol) as recommended Take Losartan as recommended Go to dialysis as recommended Assessment: as above Discharge Date/Time: 12/12/22 16:31
--- NOTE | 2022-12-12 10:49 | HO.PM.IMPN ---
Subjective Subjective Date of Service: 12/12/22 Review of Systems \ Seems to feeling better except some generalized weakness. Denies any chest pain or shortness of breath or fever chills. Physical Exam Vital Signs: Vital Signs: Last Vital Signs Temp 98.1 F 12/12/22 07:37 Pulse 65 12/12/22 07:37 Resp 20 12/12/22 07:37 BP 158/74 H 12/12/22 07:37 Pulse Ox 95 12/12/22 07:37 O2 Del Method 12/12/22 07:37 O2 Flow Rate 1 12/07/22 02:24 BMI result Body Mass Index 24.1 Const: Other: General: AO X 2, no acute distress Resp: CTA bilateral CVS: S1,S2,RRR GI: +BS, NT, no distention Skin: No rash Neuro: motor grossly intact Psych: appropriate affect Objective Data Active Medications Acetaminophen (Acetaminophen 325 Mg Tablet) 650 mg PO Q6H PRN PRN Reason: Pain, Mild (Pain Scale 1-3) Last Admin: 12/08/22 20:22 Dose: 650 mg Documented By: RHIANNA Acetaminophen (Acetaminophen 325 Mg Tablet) 650 mg PO TID PRN PRN Reason: fever or pain Amlodipine Besylate (Amlodipine Besylate 5 Mg Tablet) 5 mg PO DAILY [facility]; Protocol Last Admin: 12/12/22 08:15 Dose: 5 mg Documented By: MINDY Aspirin (Aspirin 81 Mg Tab.Chew) 81 mg PO DAILY [facility] Last Admin: 12/12/22 08:16 Dose: 81 mg Documented By: MINDY Atorvastatin Calcium (Atorvastatin Calcium 40 Mg Tablet) 40 mg PO BEDTIME [facility] Last Admin: 12/11/22 20:58 Dose: Not Given Documented By: HERMES Non-Admin Reason: Patient Refused Carvedilol (Carvedilol 6.25 Mg Tablet) 6.25 mg PO BID [facility]; Protocol Last Admin: 12/12/22 08:15 Dose: 6.25 mg Documented By: MINDY Famotidine (Famotidine 20 Mg Tablet) 20 mg PO DAILY [facility] Last Admin: 12/12/22 08:15 Dose: 20 mg Documented By: MINDY Ferrous Sulfate (Ferrous Sulfate 324 Mg Tablet.) 324 mg PO DAILY [facility] Last Admin: 12/12/22 08:15 Dose: 324 mg Documented By: MINDY Fluticasone Propionate (Fluticasone Propionate Nasal 16 Gm Hurst) 1 spray NOSTRIL-B DAILY [facility] Last Admin: 12/12/22 08:16 Dose: 1 spray Documented By: MINDY Gabapentin (Gabapentin 300 Mg Capsule) 300 mg PO BEDTIME [facility] Last Admin: 12/11/22 20:18 Dose: 300 mg Documented By: HERMES Glucose (Glucose Gel 15 Gm Gel..Gram.) 15 gm PO Q15M PRN; Protocol PRN Reason: per Hypoglycemia Standing Ord. Heparin Sodium (Porcine) (Heparin Sodium,Porcine 5,000 Unit/Ml Vial) 5,000 unit SUBCUT Q8H [facility] Last Admin: 12/12/22 05:23 Dose: Not Given Documented By: HERMES Non-Admin Reason: Patient Refused Dextrose (D10) 250 mls @ 750 mls/hr IV Q15M PRN; Protocol PRN Reason: per Hypoglycemia Standing Ord. Insulin Human Lispro (Insulin Lispro 100 Unit/Ml 3 Ml Vial) 0 unit SUBCUT QIDACHS [facility]; Protocol Last Admin: 12/12/22 07:27 Dose: Not Given Documented By: MINDY Non-Admin Reason: No Insulin Coverage Losartan Potassium (Losartan Potassium 25 Mg Tablet) 25 mg PO DAILY [facility]; Protocol Last Admin: 12/12/22 08:15 Dose: 25 mg Documented By: MINDY Melatonin (Melatonin 3 Mg Tablet) 6 mg PO BEDTIME PRN PRN Reason: Insomnia Last Admin: 12/11/22 20:19 Dose: 6 mg Documented By: HERMES Mirtazapine (Mirtazapine 15 Mg Tablet) 15 mg PO BEDTIME [facility] Last Admin: 12/11/22 20:18 Dose: 15 mg Documented By: HERMES Non-Formulary Medication (Ledipasvir-Sofosbuvir) 1 tab PO DAILY [facility] Non-Formulary Medication (Patiromer Calcium Sorbitex [Veltassa]) 8.4 gm PO DAILY [facility] Omeprazole (Omeprazole 20 Mg Capsule.) 20 mg PO DAILY [facility] Last Admin: 12/12/22 08:15 Dose: 20 mg Documented By: MINDY Senna (Sennosides 8.6 Mg Tablet) 17.2 mg PO BEDTIME PRN PRN Reason: Constipation Sodium Chloride (0.9 % Sodium Chloride Flush 3 Ml Syringe) 3 ml IVFLUSH QSHIFT [facility] Last Admin: 12/12/22 08:15 Dose: 3 ml Documented By: MINDY Vitamin D (Cholecalciferol (Vitamin D3) 25 Mcg Tablet) 50 mcg PO DAILY [facility] Last Admin: 12/12/22 08:15 Dose: 50 mcg Documented By: MINDY Labs 12/07/22 00:37 12/12/22 06:39 Labs: Laboratory Results - last 24 hr 12/11/22 12/11/22 12/11/22 11:35 16:38 19:30 Anion Gap Estim Creat Clear Calc Estimated GFR POC Glucose 161 H 121 H 203 H Random Glucose Calcium 12/12/22 12/12/22 06:39 07:18 Anion Gap 15 Estim Creat Clear Calc 8.4 Estimated GFR 6 POC Glucose 127 H Random Glucose 134 H Calcium 8.2 L D Assessment and Plan (1) ESRD (end stage renal disease): Status: Acute (2) Hypertensive emergency: Status: Acute (3) Acute CHF: Status: Acute Plan 62-year-old male with a past medical history of hypertension, hyperlipidemia, diabetes, polysubstance abuse, history of hep C, CKD into the hospital today with a chief complaint of shortness of breath.? Admitted for following Shortness of breath d/t fluid overload for advanced kidney disease and acute systolic heart failure (EF 35/40%), symptoms resolved with fluid remova via dialysis. CKD5/ESRD--started on dialysis TTS HtN:? continue Norvasc and coreg Diabetes: SSI DVTppx: SQH inaptient need :? Advanced renal disease on hd -needs Hd spot arrangement, DC today if bed available Time Spent With Patient Time: Total time managing care of this patient today ____ minutes. Quality Stroke Does the patient have a stroke diagnosis?: No VTE Prior VTE?: No VTE Risk Level:: Medical - moderate - high VTE Device Contraindication: Treatment Not Indicated VTE Drug Contraindication: N/A - Med Ordered
--- NOTE | 2022-12-12 12:15 | MHC.CM.PN ---
BERNICE spoke with Diana from [facility] at [phone], who has indicated that that Center IS contracted with Patient's insurance. All requested information has been faxed successfully to Diana @ [phone] and uploaded into [employer]. Patient will have his first HD session at [facility] tomorrow at 4:15 PM. BERNICE awaits a return call from [facility] to confirm that all is in order with Patient's insurance and receiving HD @ [facility]. CM will follow.
--- NOTE | 2022-12-12 12:31 | MHC.CM.PN ---
CORRECTION, Diana from [facility] # is [phone].
--- NOTE | 2022-12-12 12:34 | MHC.CM.PN ---
Rigoberto from [facility] has indicated that [facility] transportation ends at 5PM and therefor the 4:15 PM arrival time tomorrow will not work. called Diana from [facility] again, who offered a 5:45 AM arrival time on 12/14/2022, but Rigoberto is not sure that time will work either. [facility] is working on transportation and will get back to shortly. BERNICE will follow.
--- NOTE | 2022-12-12 12:56 | P.PNNP_ITS ---
Subjective Subjective Date of Service: 12/12/22 Interval history: Seen on HD. D/W HD RN. Events noted. All recent data reviewed. D/W Med Attending Physical Exam Vital Signs: Vital Signs: Last Vital Signs Temp 98.1 F 12/12/22 07:37 Pulse 65 12/12/22 07:37 Resp 20 12/12/22 07:37 BP 158/74 H 12/12/22 07:37 Pulse Ox 95 12/12/22 07:37 O2 Del Method 12/12/22 07:37 O2 Flow Rate 1 12/07/22 02:24 BMI result Body Mass Index 24.1 Const: General: no acute distress Orientation/consciousness: patient oriented x3 Eyes: EOM: EOMs intact bilaterally Neck: Neck: Yes supple Resp: Auscultation: diminished lung sounds Cardio: Rate: regular rate GI: Palpation (GI): Soft to palpation Neuro: General: patient oriented x3 Objective Data Labs 12/07/22 00:37 12/12/22 06:39 Labs: Laboratory Results - last 24 hr 12/11/22 12/11/22 12/12/22 16:38 19:30 06:39 Sodium 138 Potassium 4.5 Chloride 105 Carbon Dioxide 23 Anion Gap 15 BUN 69 H Creatinine 9.00 H* Estim Creat Clear Calc 8.4 Estimated GFR 6 POC Glucose 121 H 203 H Random Glucose 134 H Calcium 8.2 L D 12/12/22 07:18 Sodium Potassium Chloride Carbon Dioxide Anion Gap BUN Creatinine Estim Creat Clear Calc Estimated GFR POC Glucose 127 H Random Glucose Calcium Procedures Date of Service Date of Service: 12/12/22 Assessment & Plan Assessment and plan (1) ESRD (end stage renal disease) on dialysis: Status: Acute Assessment and Plan: End-stage renal disease.?on HD now - new start. Hypertension.? Blood pressure is doing better. ? Continue HD TTS; Seen on HD Has an outpt HD spot in [facility] TTS first shift Sand Analyst needs to liase with clinical underwriting operations manager in [facility]? May need to increase losartan; Shall closely F/U. Time Spent With Patient Time: Total time managing care of this patient today ____ minutes. Progress Note: Quality Stroke Does the patient have a stroke diagnosis?: No
[2022-12-12 13:32] VITALS: BP 188/96; PULSE 81; RESP 18; TEMP 36.9; O2SAT 98
--- NOTE | 2022-12-12 13:33 | MHC.CM.PN ---
Per Elias from [facility], Patient has a HD slot at [facility] and will have his first community HD session on , 12/12/2022, arriving at 5:45 AM([facility] will provide transportation to and from HD).
[2022-12-12 13:34] LABS: Glucose, Whole Blood 125 mg/dL (60-115)
[2022-12-12] MEDS: Heparin Sodium,Porcine 5,000 UNIT/ML VIAL 5000 UNIT SUBCUT (13:59)
[2022-12-12] MEDS: Acetaminophen 325 MG TABLET 650 MG PO (13:59)
--- NOTE | 2022-12-12 14:27 | MHC.CM.PN ---
Per discussion with MD, Patient will be medically cleared for dc to home today; Patient is part of the [facility] that will provide any home services Patient may need (PT/OT./RN etc/camille Franklin from [facility]). [facility] will also be providing transportation to new HD at [facility], beginning , 12/14/22 arrival time at 5:45 AM. Per RN CM, no IMM is required with Patient's insurance plan. Patient and his Sister to be notified of the dc plan.
--- NOTE | 2022-12-12 14:35 | MHC.CM.PN ---
CM spoke with Sister/Tg @ [phone] and informed her of the dc plan.
--- NOTE | 2022-12-12 14:39 | MHC.CM.PN ---
CM met with Patient at bedside and informed him of all the details of the dc plan;Patient is aware of and in agreement with the dc plan.
[2022-12-12 15:59] VITALS: BP 167/77; RESP 20
--- NOTE | 2022-12-13 11:16 | MHC.CM.PN ---
has now completed dc summary and it has been successfully faxed to [facility]li[facility] at [phone] and will be uploaded into [employer].
== END 2022-12-12 16:31 | disposition home health service (06) | DRG 291 ==
LOC: HO.ED 02:35 → HO.EDOVER 02:35 → HO.IMC 03:50
PROVIDERS: Internal Medicine; Internal Medicine Nephrology; Radiology Diagnostic Radiology; Admitting Provider Hospitalist; Emergency Provider Internal Medicine; PCP Internal Medicine Hospice and Palliative Medicine; Visit Provider Internal Medicine
PROC: 0JH63XZ Insertion of Tunneled Vascular Access Device into Chest Subcutaneous Tissue and Fascia, Percutaneous Approach (ICD-10-PCS; principal; 2022-12-08 10:00)
DX: I13.2 Hypertensive heart and chronic kidney disease with heart failure and with stage 5 chronic kidney disease, or end stage renal disease (principal); I50.31 Acute diastolic (congestive) heart failure; N18.6 End stage renal disease; N17.9 Acute kidney failure, unspecified; E87.20 Acidosis, unspecified; I16.1 Hypertensive emergency; F14.10 Cocaine abuse, uncomplicated; E87.5 Hyperkalemia; E78.5 Hyperlipidemia, unspecified; Z66 Do not resuscitate; Z99.2 Dependence on renal dialysis; E13.22 Other specified diabetes mellitus with diabetic chronic kidney disease; Z20.822 Contact with and (suspected) exposure to COVID-19; Z91.14 Patient's other noncompliance with medication regimen; Z87.891 Personal history of nicotine dependence; Z79.4 Long term (current) use of insulin; Z79.82 Long term (current) use of aspirin; Z79.899 Other long term (current) drug therapy
CPT/HCPCS: 0241U; 36415; 36558; 71045; 74176; 80048; 80053; 81001; 82947; 83880; 84100; 84484; 85025; 85610; 85730; 86704; 86706; 86803; 87340; 87635; 90935; 90999; 93005; 93306; 93356; 97162; 99152; 99285; C1750; C1769; J1643; J1650; J1940; Q9957

== ENCOUNTER 2022-12-28 23:34 | Inpatient (IN) | payer OTHER, SELFPAY ==
--- NOTE | ~2022-12-28 | XR_ITS ---
EXAMINATION: XR CHEST CLINICAL INFORMATION: Reason for Exam SOB COMPARISON: Chest radiograph 12/07/2022 TECHNIQUE: One view of the chest FINDINGS: Right subclavian central venous catheter tip terminates at the cavoatrial junction. No pneumothorax. Similar trace left pleural effusion. Slightly increased perihilar and interstitial opacities. Unchanged cardiomediastinal silhouette. XR/XR chest 1V IMPRESSION: 1. Slightly increased perihilar and interstitial opacities which may reflect mild pulmonary edema or atypical/viral infection. 2. Similar trace left pleural effusion. 3. Right subclavian central venous catheter tip terminates at the cavoatrial junction. No pneumothorax.
[2022-12-28 23:46] VITALS: BP 208/127; BP 220/120; PULSE 105; PULSE 106; RESP 22; TEMP 36.6; O2SAT 92; BMI 28.1
--- NOTE | 2022-12-28 23:52 | ECG_ITS ---
Test Reason : DYSPNEA Blood Pressure : / mmHG Vent. Rate : 106 BPM Atrial Rate : 106 BPM P-R Int : 182 ms QRS Dur : 134 ms QT Int : 386 ms P-R-T Axes : 054 -41 114 degrees QTc Int : 512 ms Sinus tachycardia Left axis deviation Right bundle branch block T wave abnormality, consider lateral ischemia Abnormal ECG When compared with ECG of 07-DEC-2022 00:28, No significant change was found Referred By: Generic ED Physician Electronically Signed By:VANCE SERRANO
[2022-12-29] VITALS (8 sets, daily range): BP systolic 139–187; BP diastolic 82–121; PULSE 65–98; RESP 17–21; TEMP 36.1–37.2; O2SAT 87–97; BMI 18.6; BMI 28.1
--- NOTE | 2022-12-29 00:05 | ED.SOB ---
HPI - SOB/Dyspnea General Chief Complaint: Dyspnea Stated Complaint: sob Time Seen by Provider: 12/29/22 00:04 Source: patient Mode of arrival: EMS Limitations: no limitations History of Present Illness HPI Narrative: Patient is 59 years old with history of hypertension hyperlipidemia diabetes cocaine abuse history end-stage renal disease on dialysis started during last admission on 12/07 patient discharged on 12/12 since then he stopped taking medication and did not go for dialysis comes here for increased shortness of breath for last few days got worse in last 2 days, blood pressure on arrival was 208/127, POC 157. No nausea no vomiting abdominal pain patient refusing dialysis as he does not like it without any main reason but now agreeable for dialysis during admission Related Data Home Medications Medication Instructions Recorded Confirmed blood sugar diagnostic #10 ea 09/21/20 06/22/21 pen needle, diabetic 32 gauge x #50 ea 09/21/20 01/03/2210/04 amlodipine 10 mg tablet 1 tab PO DAILY 12/07/22 12/07/22 aspirin 81 mg tablet,delayed 1 tab PO DAILY 12/07/22 12/07/22 release atorvastatin 40 mg tablet 1 tab PO BEDTIME 12/07/22 12/07/22 cholecalciferol (vitamin D3) 50 1 cap PO DAILY 12/07/22 12/07/22 mcg (2,000 unit) capsule famotidine 20 mg tablet 1 tab PO DAILY 12/07/22 12/07/22 gabapentin 300 mg capsule 1 cap PO BEDTIME 12/07/22 12/07/22 insulin aspart U-100 100 unit/mL 10 - 22 unit subcut TID 12/07/22 12/07/22 (3 mL) subcutaneous pen insulin glargine 100 unit/mL (3 40 unit subcut DAILY 12/07/22 12/07/22 mL) subcutaneous pen (Lantus Solostar U-100 Insulin) ledipasvir 90 mg-sofosbuvir 400 mg 1 tab PO DAILY 12/07/22 12/07/22 tablet mirtazapine 15 mg tablet 1 tab PO BEDTIME 12/07/22 12/07/22 pantoprazole 20 mg tablet,delayed 1 tab PO DAILY 12/07/22 12/07/22 release patiromer calcium sorbitex 8.4 8.4 g PO DAILY 12/07/22 12/07/22 gram oral powder packet (Veltassa) Previous Rx's Medication Instructions Recorded lancets 28 gauge #100 ea 12/09/20 pen needle, diabetic 33 gauge x #100 ea 04/22/21/ (Comfort EZ Pen [place]) blood sugar diagnostic (FreeStyle #100 ea 06/16/21 Test strips) blood-glucose meter (FreeStyle #1 ea 06/17/21 Lite Meter kit) acetaminophen 500 mg tablet 500 mg PO TID PRN fever or pain 90 01/03/22 (Tylenol Extra Strength) days #90 tabs ferrous sulfate 325 mg (65 mg 325 mg PO DAILY 90 days #90 tabs 01/03/22 iron) tablet,delayed release meclizine 25 mg tablet 25 mg PO BID-TID PRN dizziness 90 01/03/22 days #90 tabs quetiapine 25 mg tablet See Rx Instructions PO BEDTIME 30 01/03/22 days #90 tabs Shower chair #1 ea 01/05/22 Shower grab bars #2 ea 01/05/22 pen needle, diabetic 31 gauge x #100 ea 02/14/2210/04 (Comfort EZ Pen [place]) carvedilol 6.25 mg tablet 6.25 mg PO BID #60 tabs 12/12/22 losartan 50 mg tablet 50 mg PO DAILY #30 tabs 12/12/22 Allergies Allergy/AdvReac Type Severity Reaction Status Date / Time No Known Allergies Allergy Verified 12/28/22 23:46 Review of Systems Review of Systems: Yes all other systems are reviewed and are negative [facility] Past Medical History Medical History Cocaine abuse Diabetes 1.5, managed as type 1 ESRD (end stage renal disease) Hep C w/o coma, chronic Hepatitis C antibody test positive Hypertension, essential Nicotine addiction Type 2 diabetes mellitus Family History Family History Mother Cancer Social History Social History Household Members: None Housing: Apartment Housing Other:: intermediate Do you presently have visiting nurse or other home services: Yes Alcohol intake: former Patient Tobacco Use Status: Former Tobacco user Tobacco use type: Cigarette Cigarettes Per Day: 6 e-Cigarette/Vaping Use: Never Used Substance Use Type: Marijuana Advance Directives: No Advance Directives Information Provided: Yes service: No Current occupational status: disabled Physical Exam Vital Signs: Vital Signs: Last Vital Signs Temp 99.0 F 12/29/22 03:00 Pulse 78 12/29/22 03:00 Resp 21 H 12/29/22 03:00 BP 162/89 H 12/29/22 03:00 Pulse Ox 92 12/29/22 03:00 O2 Del Method Nasal Cannula 12/29/22 03:00 O2 Flow Rate 2 12/29/22 03:00 BMI result Body Mass Index 28.1 Appearance: Alert. Oriented X3. Mild short of breath Eyes: PERRLA, No Nystagmus ENT: Pharynx normal. Oral Mucosa moist Neck: Normal inspection. Neck supple. CVS: Normal heart rate and rhythm. Pulses normal. Respiratory: mild respiratory distress. Equal air entry bilateral, bilateral rales posteriorly Abdomen: Soft and nontender. Bowel sounds are present, no mass palpable, no CVA tenderness Skin: Skin warm and dry. Normal skin color. Normal skin turgor. Extremities: No lower extremity edema. No calf tenderness Neuro: Oriented X 3. No motor deficit. No sensory deficit. Medications Administered Discontinued Medications Generic Name Dose Route Start Last Admin Trade Name Freq PRN Reason Stop Dose Admin Furosemide 100 mg 12/29/22 00:11 12/29/22 00:22 Furosemide 100 Mg/10 Ml Vial IVPUSH 12/29/22 00:12 100 mg ONCE ONE Administration Protocol Labetalol HCl 10 mg 12/29/22 00:17 12/29/22 00:24 Labetalol Hcl 100 Mg/20 Ml Vial IVPUSH 12/29/22 00:18 10 mg ONCE ONE Administration Labetalol HCl 20 mg 12/29/22 01:19 12/29/22 01:29 Labetalol Hcl 100 Mg/20 Ml Vial IVPUSH 12/29/22 01:20 20 mg ONCE ONE Administration Nitroglycerin 1 inch 12/29/22 01:19 12/29/22 01:29 Nitroglycerin 2 % Oint 1 Gm Packet TRANSDERMA 12/29/22 01:20 1 inch ONCE ONE Administration Sodium Bicarbonate 50 meq 12/29/22 01:47 12/29/22 02:45 Sodium Bicarbonate 8.4% 50 Meq/50 Ml Syringe IVPUSH 12/29/22 01:48 50 meq ONCE ONE Administration Medical Decision Making Medical Decision Making [facility] Narrative: Patient with end-stage renal disease noncompliant to medications and dialysis and metabolic acidosis with hypertension, fluid overload and renal failure patient received IV labetalol IV Lasix mid small amount of urine plan to admit for hemodialysis in a.m. Differential Diagnosis CHF/renal failure/metabolic acidosis/accelerated hypertension Lab Data [facility] Lab Attestation statement: I reviewed the patient's lab results. 12/29/22 00:05 12/29/22 00:05 Labs: Lab Results 12/29/22 12/29/22 12/29/22 Range/Units 00:05 00:05 00:05 WBC 10.7 (4.8-10.8) X10*3/uL RBC 3.75 L (4.60-5.80) X10*6/uL Hgb 10.4 L (14.0-18.0) g/dl Hct 32.3 L (42.0-52.0) % MCV 86.1 (80.0-98.0) fL MCH 27.7 (27.0-33.0) pg MCHC 32.2 (31.0-36.0) g/dl RDW 15.5 (11.0-16.0) % Plt Count 411 H D (160-400) X10*3/uL MPV 9.3 L (9.4-12.4) fL Immature Gran % (Auto) 0.6 H (0.0-0.4) % Neut % (Auto) 77.5 H (45-73) % Lymph % (Auto) 13.5 L (20-40) % [place] % (Auto) 7.9 (2-11) % Eos % (Auto) 0.2 (0-4) % Baso % (Auto) 0.3 (0-2) % Lymph # (Auto) 1.5 (1.2-4.9) X10*3/uL [place] # (Auto) 0.9 (0.1-1.2) X10*3/uL Eos # (Auto) 0.0 (0.0-0.4) X10*3/uL Baso # (Auto) 0.0 (0.0-0.2) X10*3/uL Abs Immat Gran (auto) 0.06 H (0.00-0.03) X10*3/uL Absolute Neuts (auto) 8.3 (2.0-8.3) x10*3/uL Absolute Nucleated RBC 0.000 (0.0-0.012) X10*3/uL Nucleated RBC % (auto) 0.0 (0.0-0.2) /100WBC Sodium 138 (135-145) mmol/L Potassium 5.4 H (3.3-5.1) mmol/L Chloride 108 (96-108) mmol/L Carbon Dioxide 17 L (22-29) mmol/L Anion Gap 18 (12-20) BUN 55 H (9-16) mg/dL Creatinine 11.42 H* (0.5-1.4) mg/dL Estim Creat Clear Calc 6.1 Estimated GFR 5 Random Glucose 166 H (60-115) mg/dL Calcium 8.7 D (8.4-10.2) mg/dL Total Bilirubin 0.6 (0.0-1.0) mg/dL AST 14 (5-37) U/L ALT 11 (0-40) U/L Alkaline Phosphatase 132 H (39-117) U/L Troponin I High Sens (<3.5-35.0) ng/L B-Natriuretic Peptide 9996 H (<100) pg/mL Total Protein 6.3 L (6.5-8.0) g/dL Albumin 2.8 L (3.5-5.0) g/dL COVID-19 (ALIREZA) (Negative) COVID-19 Clin Com 12/29/22 12/29/22 Range/Units 00:05 00:05 WBC (4.8-10.8) X10*3/uL RBC (4.60-5.80) X10*6/uL Hgb (14.0-18.0) g/dl Hct (42.0-52.0) % MCV (80.0-98.0) fL MCH (27.0-33.0) pg MCHC (31.0-36.0) g/dl RDW (11.0-16.0) % Plt Count (160-400) X10*3/uL MPV (9.4-12.4) fL Immature Gran % (Auto) (0.0-0.4) % Neut % (Auto) (45-73) % Lymph % (Auto) (20-40) % [place] % (Auto) (2-11) % Eos % (Auto) (0-4) % Baso % (Auto) (0-2) % Lymph # (Auto) (1.2-4.9) X10*3/uL [place] # (Auto) (0.1-1.2) X10*3/uL Eos # (Auto) (0.0-0.4) X10*3/uL Baso # (Auto) (0.0-0.2) X10*3/uL Abs Immat Gran (auto) (0.00-0.03) X10*3/uL Absolute Neuts (auto) (2.0-8.3) x10*3/uL Absolute Nucleated RBC (0.0-0.012) X10*3/uL Nucleated RBC % (auto) (0.0-0.2) /100WBC Sodium (135-145) mmol/L Potassium (3.3-5.1) mmol/L Chloride (96-108) mmol/L Carbon Dioxide (22-29) mmol/L Anion Gap (12-20) BUN (9-16) mg/dL Creatinine (0.5-1.4) mg/dL Estim Creat Clear Calc Estimated GFR Random Glucose (60-115) mg/dL Calcium (8.4-10.2) mg/dL Total Bilirubin (0.0-1.0) mg/dL AST (5-37) U/L ALT (0-40) U/L Alkaline Phosphatase (39-117) U/L Troponin I High Sens 315.3 H* D (<3.5-35.0) ng/L B-Natriuretic Peptide (<100) pg/mL Total Protein (6.5-8.0) g/dL Albumin (3.5-5.0) g/dL COVID-19 (ALIREZA) Negative (Negative) COVID-19 Clin Com See Note Independent Interpretation I performed an independent interpretation of an: EKG Interpretation: Sinus tachycardia heart rate of 106 beats per minute left axis deviation RBBB T-wave changes in lateral leads no significant change from 12/07/2022 Critical Care Time Critical Care Time Critical Care Time: Yes Total Critical Care Time: 55 Attestation: The patient was critically ill with a high probability of imminent or life threatening deterioration. I spent greater than 60 minutes of discontinuous time evaluating the patient,delivering critical care at the bedside, discussing and evaluating pertinent data with consultants. Critical care time does not include time spent performing separately billable procedures or teaching. Total time spent performing critical care was 55 minutes. Discharge Plan Discharge Clinical Impression: ESRD (end stage renal disease) on dialysis, Hypertension, uncontrolled, Congestive heart failure Patient Disposition: Admitted As Inpatient
[2022-12-29 00:17] LABS: MANUAL DIFF FLAG NO
[2022-12-29] MEDS: Furosemide 100 MG/10 ML VIAL IVPUSH (00:22)
[2022-12-29] MEDS: Labetalol HCL 100 MG/20 ML VIAL 10 MG IVPUSH (00:24)
[2022-12-29 00:33] LABS: COVID-19 Test Negative (Negative); IDNOW Serial# 6674DD1D
[2022-12-29 00:44] LABS: Troponin-I High Sensitivity 315.3 ng/L (<3.5-35.0)
[2022-12-29 00:45] LABS: Alanine Aminotransferase 11 U/L (0-40); Albumin Level 2.8 g/dL (3.5-5.0); Alkaline Phosphatase 132 U/L (39-117); Anion Gap 18 (12-20); Aspartate Amino Transferase 14 U/L (5-37); Bilirubin Total 0.6 mg/dL (0.0-1.0); Blood Urea Nitrogen 55 mg/dL (9-16); Calcium 8.7 mg/dL (8.4-10.2); Carbon Dioxide 17 mmol/L (22-29); Chloride 108 mmol/L (96-108); Creatinine Clr Calc Pharmacy 6.1; Estimated Glomerular Filt Rate 5; Glucose Random 166 mg/dL (60-115); Potassium 5.4 mmol/L (3.3-5.1); Sodium 138 mmol/L (135-145); Total Protein 6.3 g/dL (6.5-8.0)
[2022-12-29 01:27] LABS: B Type Natriuretic Peptide 9996 pg/mL (<100)
[2022-12-29] MEDS: Labetalol HCL 100 MG/20 ML VIAL 20 MG IVPUSH (01:29)
[2022-12-29] MEDS: Nitroglycerin 2 % Oint 1 GM Packet 1 INCH TRANSDERMA (01:29)
--- NOTE | 2022-12-29 01:35 | PM.IMHP ---
History of Present Illness Date of Service: 12/29/22 Chief Complaint: Dyspnea This is a 62-year-old male with pertinent history of end-stage renal disease on dialysis, essential hypertension, mood disorder, insulin-dependent diabetes mellitus, mixed hyperlipidemia, hepatitis-C who presents to the emergency department for evaluation of dyspnea. Patient was recently admitted and discharged on 12/12 after he was initiated on hemodialysis for his progression of CKD stage 5. Patient had presented with dyspnea due to fluid overload which improved with hemodialysis sessions in the hospital. Patient was established with dialysis upon discharge. Patient states he did not go for dialysis as he does not like it. Presents today with worsening dyspnea, worse with exertion. Patient has also not been compliant with his medications. Patient denies fever, chills, chest discomfort, palpitations, abdominal pain, changes in urinary or bowel habits In the emergency department, patient's blood pressure was significantly elevated upon arrival. Chest x-ray with pulmonary edema and he was placed on 2L supplemental oxygen Review of Systems Constitutional: Constitutional: Reports lethargy and Reports malaise Cardiovascular: Cardiovascular: Reports dyspnea and Reports dyspnea on exertion Respiratory: Respiratory: Reports dyspnea and Reports dyspnea on exertion Gastrointestinal: Gastrointestinal: Reports no additional gastrointestinal complaints Genitourinary: Genitourinary: Reports no additional male genitourinary complaints [facility] Medical History Cocaine abuse Diabetes 1.5, managed as type 1 ESRD (end stage renal disease) Hep C w/o coma, chronic Hepatitis C antibody test positive Hypertension, essential Nicotine addiction Type 2 diabetes mellitus Family History Mother Cancer Social History Household Members: None Housing: Apartment Housing Other:: correction Do you presently have visiting nurse or other home services: Yes Alcohol intake: former Patient Tobacco Use Status: Former Tobacco user Tobacco use type: Cigarette Cigarettes Per Day: 6 e-Cigarette/Vaping Use: Never Used Substance Use Type: Marijuana Advance Directives: No Advance Directives Information Provided: Yes service: No Current occupational status: disabled Meds Allergies Allergy/AdvReac Type Severity Reaction Status Date / Time No Known Allergies Allergy Verified 12/28/22 23:46 Home Medications Medication Instructions Recorded Confirmed Last Taken Type blood sugar diagnostic #10 ea 09/21/20 06/22/21 Unknown History pen needle, diabetic 32 gauge x #50 ea 09/21/20 01/03/22 Unknown History 1/4 amlodipine 10 mg tablet 1 tab PO DAILY 12/07/22 12/07/22 Unknown History aspirin 81 mg tablet,delayed 1 tab PO DAILY 12/07/22 12/07/22 Unknown History release atorvastatin 40 mg tablet 1 tab PO BEDTIME 12/07/22 12/07/22 Unknown History cholecalciferol (vitamin D3) 50 1 cap PO DAILY 12/07/22 12/07/22 Unknown History mcg (2,000 unit) capsule famotidine 20 mg tablet 1 tab PO DAILY 12/07/22 12/07/22 Unknown History gabapentin 300 mg capsule 1 cap PO BEDTIME 12/07/22 12/07/22 Unknown History insulin aspart U-100 100 unit/mL 10 - 22 unit subcut TID 12/07/22 12/07/22 Unknown History (3 mL) subcutaneous pen insulin glargine 100 unit/mL (3 40 unit subcut DAILY 12/07/22 12/07/22 Unknown History mL) subcutaneous pen (Lantus Solostar U-100 Insulin) ledipasvir 90 mg-sofosbuvir 400 mg 1 tab PO DAILY 12/07/22 12/07/22 Unknown History tablet mirtazapine 15 mg tablet 1 tab PO BEDTIME 12/07/22 12/07/22 Unknown History pantoprazole 20 mg tablet,delayed 1 tab PO DAILY 12/07/22 12/07/22 Unknown History release patiromer calcium sorbitex 8.4 8.4 g PO DAILY 12/07/22 12/07/22 Unknown History gram oral powder packet (Veltassa) Physical Exam Vital Signs and Narrative: Vital Signs: Last Vital Signs Temp 97.9 F 12/28/22 23:46 Pulse 105 H 12/28/22 23:46 Resp 22 H 12/28/22 23:46 BP 187/121 H 12/29/22 01:13 Pulse Ox 87 L 12/29/22 01:13 O2 Del Method Room Air 12/29/22 01:13 BMI result Body Mass Index 28.1 Elderly male lying in bed in mild distress on supplemental oxygen Neck supple, no JVD Regular rate and rhythm, S1-S2 heard Bilateral crackles without wheezing Abdomen soft nontender, no guarding, no rigidity Patient is awake, alert and oriented to self, place, time and person ; no focal motor deficit Psych: Normal mood No pedal edema Results Labs 12/29/22 00:05 12/29/22 00:05 Labs: Laboratory Results - last 24 hr 12/29/22 12/29/22 12/29/22 00:05 00:05 00:05 Anion Gap 18 Estim Creat Clear Calc 6.1 Estimated GFR 5 Random Glucose 166 H Calcium 8.7 D Total Bilirubin 0.6 AST 14 ALT 11 Alkaline Phosphatase 132 H Troponin I High Sens B-Natriuretic Peptide 9996 H Total Protein 6.3 L Albumin 2.8 L COVID-19 (ALIREZA) Negative COVID-19 Clin Com See Note 12/29/22 00:05 Anion Gap Estim Creat Clear Calc Estimated GFR Random Glucose Calcium Total Bilirubin AST ALT Alkaline Phosphatase Troponin I High Sens 315.3 H* D B-Natriuretic Peptide Total Protein Albumin COVID-19 (ALIREZA) COVID-19 Clin Com Imaging Radiologist's Impressions: Impressions Chest X-Ray 12/29/22 00:12 IMPRESSION: 1. Slightly increased perihilar and interstitial opacities which may reflect mild pulmonary edema or atypical/viral infection. 2. Similar trace left pleural effusion. 3. Right subclavian central venous catheter tip terminates at the cavoatrial junction. No pneumothorax. Assessment and Plan (1) Hypoxia: Status: Acute Plan This is a 62-year-old male with pertinent history of end-stage renal disease on dialysis, essential hypertension, mood disorder, insulin-dependent diabetes mellitus, mixed hyperlipidemia, hepatitis-C who presents to the emergency department for evaluation of dyspnea. #. Acute hypoxemic respiratory failure secondary to acute on chronic congestive heart failure with reduced ejection fraction, due to noncompliance with dialysis and home medications: Patient given Lasix in the ER. Will admit patient and consult Nephrology. Patient agreeable for dialysis during admission. Resume beta-melo and ARB #. Hypertensive emergency due to medication noncompliance: Labetalol given in the ER. Nitro paste ordered. Resume home antihypertensives #. Insulin-dependent diabetes mellitus: Continue home basal regimen, initiate Accu-Cheks with sliding scale insulin #. Mood disorder: Continue home mood stabilizer #. Elevated troponin, likely type 2: No chest pain on admission. Repeat and trend Med rec pending DVT prophylaxis: Lovenox 30 mg daily Full code Cardiac diet Admit as inpatient and will require two night minimum hospital stay for supplemental oxygen and volume optimization Time Spent With Patient Time: Total time managing care of this patient today ____ minutes. Quality Stroke Does the patient have a stroke diagnosis?: No VTE Prior VTE?: No VTE Risk Level:: Medical - moderate - high VTE Device Contraindication: Treatment Not Indicated VTE Drug Contraindication: N/A - Med Ordered
[2022-12-29 01:40] LABS: Basophils Percent Auto 0.3 % (0-2); Eosinophils Percent Auto 0.2 % (0-4); Hematocrit 32.3 % (42.0-52.0); Hemoglobin 10.4 g/dl (14.0-18.0); Imm Gran Abs Auto 0.06 X10*3/uL (0.00-0.03); Imm Gran Pct Auto 0.6 % (0.0-0.4); Lymphocytes Absolute Auto 1.5 X10*3/uL (1.2-4.9); Lymphocytes Percent Auto 13.5 % (20-40); Mean Corpuscular HGB Conc 32.2 g/dl (31.0-36.0); Mean Corpuscular Hemoglobin 27.7 pg (27.0-33.0); Mean Corpuscular Volume 86.1 fL (80.0-98.0); Mean Platelet Volume 9.3 fL (9.4-12.4); Monocytes Absolute Auto 0.9 X10*3/uL (0.1-1.2); Monocytes Percent Auto 7.9 % (2-11); Neutrophils Absolute Auto 8.3 x10*3/uL (2.0-8.3); Neutrophils Percent Auto 77.5 % (45-73); Platelet Count 411 X10*3/uL (160-400); Red Blood Count 3.75 X10*6/uL (4.60-5.80); Red Cell Distribution Width 15.5 % (11.0-16.0); White Blood Count 10.7 X10*3/uL (4.8-10.8)
[2022-12-29] MEDS: Sodium Bicarbonate 8.4% 50 MEQ/50 ML SYRINGE IVPUSH (02:45)
--- NOTE | 2022-12-29 05:47 | PC.NURSE ---
Pt. alert and oriented. Pt. reporting SOB shortly after arriving to his room. Pt. O2 sats dropped to 87% and he was placed on 2L O2 as well as repositioned upright in bed, which brought O2 levels up to 92%. aware. Pt. BP initially elevated which was successfully treated with labetolol. Pt. treated with lasix. Pt. had about 250mL of urine production through the night. Pt. assigned a bed on [place] [id number] and transported via [employer]
[2022-12-29] MEDS: Enoxaparin Sodium 30 MG/0.3 ML SYRINGE SUBCUT (06:03)
--- NOTE | 2022-12-29 07:27 | PHA.MEDREC ---
Pharmacy Consult ? Medication Reconciliation Pharmacy has completed the medication reconciliation. Patient has no idea what he takes and has not been taking his medications Abhishek
[2022-12-29 07:29] LABS: MANUAL DIFF FLAG NO
[2022-12-29 07:45] LABS: Basophils Percent Auto 0.4 % (0-2); Eosinophils Percent Auto 0.2 % (0-4); Hematocrit 30.6 % (42.0-52.0); Hemoglobin 9.9 g/dl (14.0-18.0); Imm Gran Abs Auto 0.08 X10*3/uL (0.00-0.03); Imm Gran Pct Auto 0.8 % (0.0-0.4); Lymphocytes Absolute Auto 1.8 X10*3/uL (1.2-4.9); Mean Corpuscular HGB Conc 32.4 g/dl (31.0-36.0); Mean Corpuscular Hemoglobin 28.1 pg (27.0-33.0); Mean Corpuscular Volume 86.9 fL (80.0-98.0); Mean Platelet Volume 9.9 fL (9.4-12.4); Monocytes Absolute Auto 0.9 X10*3/uL (0.1-1.2); Monocytes Percent Auto 8.2 % (2-11); Neutrophils Absolute Auto 7.7 x10*3/uL (2.0-8.3); Neutrophils Percent Auto 73.4 % (45-73); Platelet Count 393 X10*3/uL (160-400); Red Blood Count 3.52 X10*6/uL (4.60-5.80); Red Cell Distribution Width 15.6 % (11.0-16.0); White Blood Count 10.4 X10*3/uL (4.8-10.8)
[2022-12-29] MEDS: Insulin Glargine,Hum.rec.anlog 100 UNIT/ML 10 ML VIAL 35 UNIT SUBCUT (07:48)
[2022-12-29] MEDS: carvediloL 6.25 MG TABLET PO ×2 (07:50→20:49)
[2022-12-29] MEDS: Losartan Potassium 50 MG TABLET PO (07:50)
[2022-12-29] MEDS: Aspirin Enteric Coated 81 MG TABLET.DR PO (07:50)
[2022-12-29] MEDS: Ferrous Sulfate 324 MG TABLET.DR PO (07:51)
[2022-12-29] MEDS: Cholecalciferol (Vitamin D3) 25 MCG TABLET 50 MCG PO (07:51)
[2022-12-29 07:58] LABS: Anion Gap 19 (12-20); Blood Urea Nitrogen 56 mg/dL (9-16); Calcium 8.7 mg/dL (8.4-10.2); Carbon Dioxide 16 mmol/L (22-29); Chloride 109 mmol/L (96-108); Creatinine Clr Calc Pharmacy 4.5; Estimated Glomerular Filt Rate 5; Glucose Random 162 mg/dL (60-115); Potassium 5.2 mmol/L (3.3-5.1); Sodium 139 mmol/L (135-145)
[2022-12-29 08:02] LABS: Troponin-I High Sensitivity 480.6 ng/L (<3.5-35.0)
[2022-12-29] MEDS: Insulin Lispro 100 UNIT/ML 3 ML VIAL SUBCUT (09:13)
[2022-12-29] MEDS: 0.9 % Sodium Chloride Flush 3 ML SYRINGE IVFLUSH ×3 (09:16→21:36)
[2022-12-29 09:32] LABS: Glucose, Whole Blood 157 mg/dL (60-115)
[2022-12-29 09:32] LABS: Glucose, Whole Blood 166 mg/dL (60-115)
--- NOTE | 2022-12-29 10:32 | PM.CNNEP ---
History of Present Illness Reason for Consult Consult date: 12/29/22 Chief Complaint Chief complaint: Dyspnea History of Present Illness Narrative: 62-year-old male with end-stage renal disease on dialysis, who presents to the emergency department for evaluation of dyspnea.? Patient did not go for dialysis as he does not like it.? Presents to hospital with worsening dyspnea, worse with exertion.? Patient has also not been compliant with his medications.? Patient denies fever, chills, chest discomfort, palpitations, abdominal pain, changes in urinary or bowel habits. In the emergency department, patient's blood pressure was significantly elevated. Chest x-ray with pulmonary edema and he was placed on 2L supplemental oxygen. He was admitted for further management. Nephrology has been consulted to assist in his clinical care during his current hospital stay Review of Systems Review of Systems Yes all other systems are reviewed and are negative PMFSH Past Medical History Medical History Cocaine abuse Diabetes 1.5, managed as type 1 ESRD (end stage renal disease) Hep C w/o coma, chronic Hepatitis C antibody test positive Hypertension, essential Nicotine addiction Type 2 diabetes mellitus Family History Family History Mother Cancer Social History Social History Household Members: None Housing: Apartment Housing Other:: care home Do you presently have visiting nurse or other home services: Yes Alcohol intake: former Patient Tobacco Use Status: Current everyday Tobacco user Tobacco use type: Cigarette Cigarettes Per Day: 5 Smoked in Last 30 Days: Yes e-Cigarette/Vaping Use: Never Used Patient Interested in Nicotine Replacement: Yes Patient Given Instructions on How to Stop Smoking: Yes Date Education Initiated: 12/29/22 Use of substances other than those prescribed or required for medical reasons: No Substance Use Type: Marijuana Have you been hit, kicked, punched, or otherwise hurt by someone within the past year? If so, by whom?: No Do you feel safe in your current relationship?: No Current Relationship Is there a partner from a previous relationship who is making you feel unsafe now?: No Are you made to feel afraid or neglected: No Advance Directives: No Advance Directives Information Provided: Yes Do you have thoughts of harming others: None Do you have a plan to hurt others: No Plan Recently lost weight without trying: No Nutrition Risks: No Nutritional Risk service: No Current occupational status: disabled Meds Allergies Allergy/AdvReac Type Severity Reaction Status Date / Time No Known Allergies Allergy Verified 12/28/22 23:46 Active Medications: Current Medications Acetaminophen (Acetaminophen 325 Mg Tablet) 650 mg PO Q6H PRN PRN Reason: Pain, Mild (Pain Scale 1-3) Acetaminophen (Acetaminophen Supp 650 Mg Supp.Rect) 650 mg LA Q6H PRN PRN Reason: Pain, Mild (Pain Scale 1-3) Aspirin (Aspirin Enteric Coated 81 Mg Tablet.) 81 mg PO DAILY [facility] Last Admin: 12/29/22 07:50 Dose: 81 mg Atorvastatin Calcium (Atorvastatin Calcium 40 Mg Tablet) 40 mg PO BEDTIME [facility] Carvedilol (Carvedilol 6.25 Mg Tablet) 6.25 mg PO BID [facility]; Protocol Last Admin: 12/29/22 07:50 Dose: 6.25 mg Enoxaparin Sodium (Enoxaparin Sodium 30 Mg/0.3 Ml Syringe) 30 mg SUBCUT Q24H [facility] Last Admin: 12/29/22 06:03 Dose: 30 mg Ferrous Sulfate (Ferrous Sulfate 324 Mg Tablet.) 324 mg PO DAILY [facility] Last Admin: 12/29/22 07:51 Dose: 324 mg Glucose (Glucose Gel 15 Gm Gel..Gram.) 15 gm PO Q15M PRN; Protocol PRN Reason: per Hypoglycemia Standing Ord. Heparin Sodium (Porcine) (Heparin Sodium,Porcine 5,000 Unit/Ml Vial) 5,000 unit INTRACATH TUTHSA@1645 [facility] Dextrose (D10) 250 mls @ 750 mls/hr IV Q15M PRN; Protocol PRN Reason: per Hypoglycemia Standing Ord. Insulin Glargine (Insulin Glargine,Hum.Rec.Anlog 100 Unit/Ml 10 Ml Vial) 35 unit SUBCUT DAILY [facility] Last Admin: 12/29/22 07:48 Dose: 35 unit Insulin Human Lispro (Insulin Lispro 100 Unit/Ml 3 Ml Vial) 0 unit SUBCUT QIDACHS [facility]; Protocol Last Admin: 12/29/22 09:13 Dose: 2 unit Losartan Potassium (Losartan Potassium 50 Mg Tablet) 50 mg PO DAILY [facility]; Protocol Last Admin: 12/29/22 07:50 Dose: 50 mg Melatonin (Melatonin 3 Mg Tablet) 6 mg PO BEDTIME PRN PRN Reason: Insomnia Non-Formulary Medication (Ledipasvir-Sofosbuvir) 1 tab PO DAILY [facility] Omeprazole (Omeprazole 20 Mg Capsule.Dr) 20 mg PO DAILY@0630 [facility] Ondansetron HCl (Ondansetron Hcl 4 Mg/2 Ml Vial) 4 mg IVPUSH Q8H PRN PRN Reason: Nausea and Vomiting Pharmacy Consult (Consult Rx Perform Med Rec) 1 each MISCELLANE ONCE PRN PRN Reason: Consult order Sodium Chloride (0.9 % Sodium Chloride Flush 3 Ml Syringe) 3 ml IVFLUSH QSHIFT [facility] Last Admin: 12/29/22 09:16 Dose: 3 ml Vitamin D (Cholecalciferol (Vitamin D3) 25 Mcg Tablet) 50 mcg PO DAILY [facility] Last Admin: 12/29/22 07:51 Dose: 50 mcg Home Medications Medication Instructions Recorded Confirmed Last Taken Type blood sugar diagnostic #10 ea 09/21/20 06/22/21 Unknown History pen needle, diabetic 32 gauge x #50 ea 09/21/20 01/03/22 Unknown History / amlodipine 10 mg tablet 1 tab PO DAILY 12/07/22 12/29/22 Unknown History aspirin 81 mg tablet,delayed 1 tab PO DAILY 12/07/22 12/29/22 Unknown History release atorvastatin 40 mg tablet 1 tab PO BEDTIME 12/07/22 12/29/22 Unknown History cholecalciferol (vitamin D3) 50 1 cap PO DAILY 12/07/22 12/29/22 Unknown History mcg (2,000 unit) capsule insulin glargine 100 unit/mL (3 40 unit subcut DAILY 12/07/22 12/29/22 Unknown History mL) subcutaneous pen (Lantus Solostar U-100 Insulin) ledipasvir 90 mg-sofosbuvir 400 mg 1 tab PO DAILY 12/07/22 12/29/22 Unknown History tablet insulin lispro 100 unit/mL 10 - 22 unit subcut TID 12/29/22 12/29/22 Unknown History subcutaneous pen pantoprazole 20 mg tablet,delayed 20 mg PO QAM 12/29/22 12/29/22 Unknown History release Physical Exam Vital Signs: Last Vital Signs Temp 98 F 12/29/22 07:02 Pulse 89 12/29/22 07:02 Resp 19 12/29/22 07:02 BP 139/82 12/29/22 07:02 Pulse Ox 92 12/29/22 07:02 O2 Del Method Nasal Cannula 12/29/22 07:02 O2 Flow Rate 2 12/29/22 07:02 BMI result Body Mass Index 18.6 Const General: no acute distress Eyes EOM: EOMs intact bilaterally Resp Auscultation: diminished lung sounds Cardio Rate: regular rate GI Palpation (GI): Soft to palpation Neuro General: moves all extremities Results Lab Results 12/29/22 07:11 12/29/22 07:11 Lab results: Chemistry 12/29/22 12/29/22 00:05 07:11 Sodium 138 139 Potassium 5.4 H 5.2 H Carbon Dioxide 17 L 16 L BUN 55 H 56 H Creatinine 11.42 H* 11.42 H* Calcium 8.7 D 8.7 Hematology 12/29/22 12/29/22 00:05 07:11 WBC 10.7 10.4 Hgb 10.4 L 9.9 L Plt Count 411 H D 393 Assessment and Plan (1) ESRD (end stage renal disease) on dialysis: Status: Acute Plan Non compliant with HD Recently initiated on HD Had outpatient HD spot in [facility] Shall dialyze and Ultrafiltrate today 2 Gram Na, 2 Gram K diet with fluid/phos restriction Phos binders with meals Shall put him back on HD schedule tomorrow Suggest switching LMWH to unfractionated Heparin for DVT prophylaxis Shall closely follow along Time Spent With Patient Time: Total time managing care of this patient today ____ minutes. Procedures Date of Service Date of Service: 12/29/22
--- NOTE | 2022-12-29 10:55 | MHC.CLN ---
NUTRITION DIET CHANGED PER DIALYSIS PARAMETERS WITH DM. DIET=DIABETIC 1800 KCALS, 2 GRAM SODIUM, LOW PHOSPHORUS, LOW POTASSIUM. PATIENT REPORTS CURRENT HRXPLB=802#. USED WEIGHT ON 12/28/22=72.5 KG (160#) FOR ASSESSMENT.
--- NOTE | 2022-12-29 11:00 | MHC.CLN ---
NUTRITION DIET CHANGED PER DIALYSIS PARAMETERS WITH DM. DIET=DIABETIC 1800 KCALS, 2 GRAM SODIUM, LOW PHOSPHORUS, LOW POTASSIUM. PATIENT REPORTS CURRENT WKLGNL=382#. USED WEIGHT ON 12/28/22=74.389 KG (163.7#) FOR ASSESSMENT.
--- NOTE | 2022-12-29 12:41 | P.EN_ITS ---
Event Note Date of Service: 12/29/22 Event Note: 62-year-old male with pertinent history of end-stage renal disease on dialysis, essential hypertension, mood disorder, insulin-dependent diabetes mellitus, mixed hyperlipidemia, hepatitis-C who presents to the emergency department for evaluation of dyspnea. #.? Acute hypoxemic respiratory failure secondary to acute on chronic congestive heart failure with reduced ejection fraction, due to noncompliance with dialysis and home medications:? Will undergo hemodialysis today and tomorrow Home medications resumed including Coreg, losartan and amlodipine #.? Hypertensive emergency due to medication noncompliance:? Labetalol given in the ER.Resume home antihypertensives #.? Insulin-dependent diabetes mellitus:? Continue home basal regimen, Accu- Cheks with sliding scale insulin #.? Mood disorder: Continue home mood stabilizer #.? Elevated troponin, likely type 2 in the setting of fluid overload repeat troponin elevated, no chest pain, no EKG changes recently had an echocardiogram with moderate global hypokinesis, EF 35-40% and grade 1 diastolic dysfunction , no further workup warranted. DVT prophylaxis:? Lovenox 30 mg daily Full code Time Spent With Patient Time: Total time managing care of this patient today ____ minutes.
[2022-12-29 13:30] LABS: Glucose, Whole Blood 84 mg/dL (60-115)
--- NOTE | 2022-12-29 15:26 | MHC.CM.PN ---
PT REPORTS HE LIVES ALONE AND HAS A HEALTHCARE EDUCATOR HE IS PART OF THE [employer] HE SAYS HE ALSO GOES TO HD IN [place] 3X/WEEK HE DOES SAY HE WISHES HE DID NOT HAVE TO GO TO [place] ANYMORE PT REPORTS HE HAS A WALKER FOR DME PT DOES NOT HAVE A HCP, DECLINES TO COMPLETE ONE HE IS [facility] PCP: KESHAV LAGUNAS DCP HOME RESUME HEALTHCARE EDUCATOR AND HD SERVICES SISTER TO TRANSPORT
[2022-12-29] MEDS: Atorvastatin Calcium 40 MG TABLET PO (20:49)
[2022-12-30] VITALS (7 sets, daily range): BP systolic 127–189; BP diastolic 67–91; PULSE 58–99; RESP 16–18; TEMP 36.1–37; O2SAT 98–100
[2022-12-30] MEDS: Enoxaparin Sodium 30 MG/0.3 ML SYRINGE SUBCUT (05:34)
[2022-12-30] MEDS: Omeprazole 20 MG CAPSULE.DR PO (05:34)
[2022-12-30 06:11] LABS: Anion Gap 15 (12-20); Blood Urea Nitrogen 34 mg/dL (9-16); Calcium 8.1 mg/dL (8.4-10.2); Carbon Dioxide 23 mmol/L (22-29); Chloride 101 mmol/L (96-108); Creatinine Clr Calc Pharmacy 9.6; Estimated Glomerular Filt Rate 8; Glucose Random 78 mg/dL (60-115); Potassium 4.1 mmol/L (3.3-5.1); Sodium 135 mmol/L (135-145)
[2022-12-30] MEDS: Losartan Potassium 50 MG TABLET PO (10:03)
[2022-12-30] MEDS: Cholecalciferol (Vitamin D3) 25 MCG TABLET 50 MCG PO (10:03)
[2022-12-30] MEDS: Ferrous Sulfate 324 MG TABLET.DR PO (10:04)
[2022-12-30] MEDS: Aspirin Enteric Coated 81 MG TABLET.DR PO (10:04)
[2022-12-30] MEDS: amLODIPine Besylate 10 MG TABLET PO (10:04)
[2022-12-30] MEDS: Insulin Glargine,Hum.rec.anlog 100 UNIT/ML 10 ML VIAL 35 UNIT SUBCUT (10:04)
[2022-12-30] MEDS: carvediloL 6.25 MG TABLET PO ×2 (10:04→20:51)
[2022-12-30] MEDS: 0.9 % Sodium Chloride Flush 3 ML SYRINGE IVFLUSH ×3 (10:05→20:51)
--- NOTE | 2022-12-30 11:29 | HO.PM.IMPN ---
Subjective Subjective Date of Service: 12/30/22 Interval History: This history was taken in Turkmen from the patient. Endorses dyspnea but improving To HD today Review of Systems Review of Systems: Yes all other systems are reviewed and are negative Physical Exam Vital Signs: Vital Signs: Last Vital Signs Temp 98.6 F 12/30/22 07:25 Pulse 65 12/30/22 07:25 Resp 18 12/30/22 07:25 BP 157/81 H 12/30/22 07:25 Pulse Ox 99 12/30/22 07:25 O2 Del Method Nasal Cannula 12/30/22 07:25 O2 Flow Rate 2 12/30/22 07:25 BMI result Body Mass Index 28.1 Gen: in no acute distress HEENT: sclera anicteric, moist mucus membranes Neck: supple, R subclavian tunneled dialysis catheter Lungs: inspiratory crackles bilateral bases Heart: regular rate and rhythm, no murmurs Abd: soft, non-tender, non-distended Ext: no edema Skin: warm/well-perfused Neuro: alert and oriented x3, no focal findings Psych: appropriate affect Objective Data Active Medications Acetaminophen (Acetaminophen 325 Mg Tablet) 650 mg PO Q6H PRN PRN Reason: Pain, Mild (Pain Scale 1-3) Acetaminophen (Acetaminophen Supp 650 Mg Supp.Rect) 650 mg IA Q6H PRN PRN Reason: Pain, Mild (Pain Scale 1-3) Amlodipine Besylate (Amlodipine Besylate 10 Mg Tablet) 10 mg PO DAILY [facility]; Protocol Last Admin: 12/30/22 10:04 Dose: 10 mg Documented By: LADONNA Aspirin (Aspirin Enteric Coated 81 Mg Tablet.) 81 mg PO DAILY [facility] Last Admin: 12/30/22 10:04 Dose: 81 mg Documented By: LADONNA Atorvastatin Calcium (Atorvastatin Calcium 40 Mg Tablet) 40 mg PO BEDTIME [facility] Last Admin: 12/29/22 20:49 Dose: 40 mg Documented By: TONY Carvedilol (Carvedilol 6.25 Mg Tablet) 6.25 mg PO BID [facility]; Protocol Last Admin: 12/30/22 10:04 Dose: 6.25 mg Documented By: LADONNA Ferrous Sulfate (Ferrous Sulfate 324 Mg Tablet.) 324 mg PO DAILY [facility] Last Admin: 12/30/22 10:04 Dose: 324 mg Documented By: LADONNA Glucose (Glucose Gel 15 Gm Gel..Gram.) 15 gm PO Q15M PRN; Protocol PRN Reason: per Hypoglycemia Standing Ord. Heparin Sodium (Porcine) (Heparin Sodium,Porcine 5,000 Unit/Ml Vial) 5,000 unit INTRACATH TUTHSA@1645 [facility] Heparin Sodium (Porcine) (Heparin Sodium,Porcine 5,000 Unit/Ml Vial) 5,000 unit SUBCUT Q12H [facility] Dextrose (D10) 250 mls @ 750 mls/hr IV Q15M PRN; Protocol PRN Reason: per Hypoglycemia Standing Ord. Insulin Glargine (Insulin Glargine,Hum.Rec.Anlog 100 Unit/Ml 10 Ml Vial) 35 unit SUBCUT DAILY [facility] Last Admin: 12/30/22 10:04 Dose: 35 unit Documented By: LADONNA Insulin Human Lispro (Insulin Lispro 100 Unit/Ml 3 Ml Vial) 0 unit SUBCUT QIDACHS [facility]; Protocol Last Admin: 12/30/22 08:07 Dose: Not Given Documented By: LADONNA Non-Admin Reason: No Insulin Coverage Comments: POC = 79 Losartan Potassium (Losartan Potassium 50 Mg Tablet) 50 mg PO DAILY [facility]; Protocol Last Admin: 12/30/22 10:03 Dose: 50 mg Documented By: LADONNA Melatonin (Melatonin 3 Mg Tablet) 6 mg PO BEDTIME PRN PRN Reason: Insomnia Non-Formulary Medication (Ledipasvir-Sofosbuvir) 1 tab PO DAILY [facility] Omeprazole (Omeprazole 20 Mg Capsule.) 20 mg PO DAILY@0630 [facility] Last Admin: 12/30/22 05:34 Dose: 20 mg Documented By: TONY Ondansetron HCl (Ondansetron Hcl 4 Mg/2 Ml Vial) 4 mg IVPUSH Q8H PRN PRN Reason: Nausea and Vomiting Pharmacy Consult (Consult Rx Perform Med Rec) 1 each MISCELLANE ONCE PRN PRN Reason: Consult order Sodium Chloride (0.9 % Sodium Chloride Flush 3 Ml Syringe) 3 ml IVFLUSH QSHIFT [facility] Last Admin: 12/30/22 10:05 Dose: 3 ml Documented By: LADONNA Vitamin D (Cholecalciferol (Vitamin D3) 25 Mcg Tablet) 50 mcg PO DAILY [facility] Last Admin: 12/30/22 10:03 Dose: 50 mcg Documented By: LADONNA Labs 12/29/22 07:11 12/30/22 05:34 Labs: Laboratory Results - last 24 hr 12/29/22 12/30/22 11:17 05:34 Anion Gap 15 Estim Creat Clear Calc 9.6 Estimated GFR 8 POC Glucose 84 Random Glucose 78 Calcium 8.1 L D ITS Impressions Chest X-Ray 12/29/22 00:12 IMPRESSION: 1. Slightly increased perihilar and interstitial opacities which may reflect mild pulmonary edema or atypical/viral infection. 2. Similar trace left pleural effusion. 3. Right subclavian central venous catheter tip terminates at the cavoatrial junction. No pneumothorax. Assessment and Plan (1) Hypoxia: Status: Acute (2) ESRD (end stage renal disease) on dialysis: Status: Acute Plan d#2 62yo M with ESRD on HD, HTN, mood disorder, DM2, HLD, HCV presented with dyspnea, admitted for hypoxia due to acute/chronic HFrEF + HTN emergecny due to noncompliance with HD and home meds # acute hypoxic resp failure due to acute/chronic HFrEF due to noncompliance with HD + home meds - HD yesterday and today - resume carvedilol, losartan, amlodipine - wean O2 as tolerated # HTN emergency due to medication noncompliance - resume home meds as above # troponin elevation - likely due to ESRD + CHF, no chest pain or EKG changes, recently had TTE with moderate global hypokinesis, EF 35-40% and grade 1 diastolic dysfunction , no further workup warranted. # DM2 - basal/bolus insulin # HCV - home antivirals # VTE ppx: UFH # dispo: STR, PT eval requested In my clinical judgment, the patient requires continued inpatient hospitalization for the following reasons: urgent HD Time Spent With Patient Time: Total time managing care of this patient today __35__ minutes. Quality Stroke Does the patient have a stroke diagnosis?: No VTE Prior VTE?: No VTE Risk Level:: Medical - moderate - high VTE Device Contraindication: Treatment Not Indicated VTE Drug Contraindication: N/A - Med Ordered
--- NOTE | 2022-12-30 12:17 | PC.NURSE ---
POC machine not uploading results for this patient. POC at 1130 = 50, patient given 30 grams of juice and rechecked POC 15 mins later = 71. Dr Ratliff aware
--- NOTE | 2022-12-30 13:19 | PC.NURSE ---
Patient refusing to go hemodialysis since he is experiencing diarrhea. Reports diarrhea 4x in last few hours, Dr. Ratliff aware, stool studies ordered
--- NOTE | 2022-12-30 15:07 | PM.PNNEP ---
Subjective Subjective Date of Service: 12/30/22 Interval history: Events noted; All recent data reviewed Physical Exam Vital Signs: Vital Signs: Last Vital Signs Temp 98.2 F 12/30/22 14:06 Pulse 99 12/30/22 14:06 Resp 18 12/30/22 14:06 BP 189/81 H 12/30/22 14:06 Pulse Ox 99 12/30/22 14:06 O2 Del Method Room Air 12/30/22 14:06 O2 Flow Rate 2 12/30/22 12:00 BMI result Body Mass Index 28.1 Const: General: no acute distress Orientation/consciousness: patient oriented x3 Eyes: EOM: EOMs intact bilaterally Resp: Auscultation: diminished lung sounds Cardio: Rate: regular rate GI: Palpation (GI): Soft to palpation Neuro: General: patient oriented x3 Objective Data Labs 12/29/22 07:11 12/30/22 05:34 Labs: Laboratory Results - last 24 hr 12/30/22 05:34 Sodium 135 Potassium 4.1 D Chloride 101 Carbon Dioxide 23 Anion Gap 15 BUN 34 H Creatinine 7.24 H* Estim Creat Clear Calc 9.6 Estimated GFR 8 Random Glucose 78 Calcium 8.1 L D Procedures Date of Service Date of Service: 12/30/22 Assessment & Plan Assessment and plan (1) ESRD (end stage renal disease) on dialysis: Status: Acute Assessment and Plan: Non compliant with HD Recently initiated on HD Had outpatient HD spot in [facility]- due today 2 Gram Na, 2 Gram K diet with fluid/phos restriction Phos binders with meals Shall closely follow along Progress Note: Quality Stroke Does the patient have a stroke diagnosis?: No
[2022-12-30] MEDS: Heparin Sodium,Porcine 5,000 UNIT/ML VIAL 5000 UNIT SUBCUT (17:16)
--- NOTE | 2022-12-30 17:45 | PM.PSYCN ---
History of Present Illness Date of Service: 12/30/2022 Chief Complaint: Dyspnea Reason for Consult: capacity Requesting physician: Yeimi Ratliff Discussed with referring provider: Yes Sources of Information: patient interviewed, chart reviewed and crisis/core team assessment reviewed HPI Narrative: Mr. Markham is a 62 year-old male with hx of end stage CKD recently started on hemodialysis. Pt recently discharged on 12/12 starting on HD. He returned to ED with c/o of dyspnea in setting of fluid overload. Pt apparently declined to go to HD outpatient. He did agree yesterday which did improve fluid overload. Today, pt declined to go to HD after agreeing to continue without giving much explanation. Therefore, psychiatry was asked to do capacity assessment. Pt seen in his room. Pt is pleasant on approach. Pt states he came to hospital because he could breath but states he is feeling better. When asked about his understanding of need for HD, pt states They just told me that if I don't get it my kidneys and then I . He further states I don't want to . Pt explained that he declined again this morning, he states I had diarrhea. When asked about if he knows the year, he states 1993. When asked about Month he states is beginning of November. He does know he is in the hospital at [facility]. He denies SI/HI. When asked about who would he appoint as person helping him make medical decisions, he states My sister, she takes care of me, she's good. This remote mortgage underwriter spoke with pt's sister, Tg Vazquez ([phone]) who reports pt often gets confused. She reports her doctor [facility] explained in detail while he was in the community the consequences of not doing HD, but it does seem that pt is struggling with retaining information. Medical Evaluation Reviewed: Yes [facility] Medical History Cocaine abuse Diabetes 1.5, managed as type 1 ESRD (end stage renal disease) Hep C w/o coma, chronic Hepatitis C antibody test positive Hypertension, essential Nicotine addiction Type 2 diabetes mellitus Diagnostics Vital Signs (24Hr): Vital Signs - 24 hr 12/29/22 19:37 12/29/22 23:57 12/30/22 03:05 Temperature 96.9 F 97.3 F 97 F Pulse Rate 72 65 70 Respiratory Rate 17 17 17 Blood Pressure 168/82 H 159/83 H 161/91 H Pulse Oximetry 97 96 99 Oxygen Delivery Method Nasal Cannula Nasal Cannula Room Air Oxygen Flow Rate 2 2 12/30/22 07:25 12/30/22 12:00 12/30/22 14:06 Temperature 98.6 F 97.0 F 98.2 F Pulse Rate 65 58 99 Respiratory Rate 18 18 18 Blood Pressure 157/81 H 127/70 189/81 H Pulse Oximetry 99 98 99 Oxygen Delivery Method Nasal Cannula Nasal Cannula Room Air Oxygen Flow Rate 2 2 12/30/22 15:56 Temperature 97.0 F Pulse Rate 70 Respiratory Rate 18 Blood Pressure 138/69 Pulse Oximetry 98 Oxygen Delivery Method Nasal Cannula Oxygen Flow Rate 1.5 BMI result Body Mass Index 28.1 Labs 12/29/22 07:11 12/30/22 05:34 Labs: Laboratory Results - last 48 hr 12/28/22 12/29/22 12/29/22 23:47 00:05 00:05 WBC 10.7 RBC 3.75 L Hgb 10.4 L Hct 32.3 L MCV 86.1 MCH 27.7 MCHC 32.2 RDW 15.5 Plt Count 411 H D MPV 9.3 L Immature Gran % (Auto) 0.6 H Neut % (Auto) 77.5 H Lymph % (Auto) 13.5 L Perry % (Auto) 7.9 Eos % (Auto) 0.2 Baso % (Auto) 0.3 Lymph # (Auto) 1.5 Perry # (Auto) 0.9 Eos # (Auto) 0.0 Baso # (Auto) 0.0 Abs Immat Gran (auto) 0.06 H Absolute Neuts (auto) 8.3 Absolute Nucleated RBC 0.000 Nucleated RBC % (auto) 0.0 Sodium 138 Potassium 5.4 H Chloride 108 Carbon Dioxide 17 L Anion Gap 18 BUN 55 H Creatinine 11.42 H* Estim Creat Clear Calc 6.1 Estimated GFR 5 POC Glucose 157 H Random Glucose 166 H Calcium 8.7 D Total Bilirubin 0.6 AST 14 ALT 11 Alkaline Phosphatase 132 H Troponin I High Sens B-Natriuretic Peptide Total Protein 6.3 L Albumin 2.8 L COVID-19 ([facility]) COVID-19 Clin Com 12/29/22 12/29/22 12/29/22 00:05 00:05 00:05 WBC RBC Hgb Hct MCV MCH MCHC RDW Plt Count MPV Immature Gran % (Auto) Neut % (Auto) Lymph % (Auto) Perry % (Auto) Eos % (Auto) Baso % (Auto) Lymph # (Auto) Perry # (Auto) Eos # (Auto) Baso # (Auto) Abs Immat Gran (auto) Absolute Neuts (auto) Absolute Nucleated RBC Nucleated RBC % (auto) Sodium Potassium Chloride Carbon Dioxide Anion Gap BUN Creatinine Estim Creat Clear Calc Estimated GFR POC Glucose Random Glucose Calcium Total Bilirubin AST ALT Alkaline Phosphatase Troponin I High Sens 315.3 H* D B-Natriuretic Peptide 9996 H Total Protein Albumin COVID-19 ([facility]IREZA) Negative COVID-19 Clin Com See Note 12/29/22 12/29/22 12/29/22 07:02 07:11 07:11 WBC 10.4 RBC 3.52 L Hgb 9.9 L Hct 30.6 L MCV 86.9 MCH 28.1 MCHC 32.4 RDW 15.6 Plt Count 393 MPV 9.9 Immature Gran % (Auto) 0.8 H Neut % (Auto) 73.4 H Lymph % (Auto) 17.0 L Perry % (Auto) 8.2 Eos % (Auto) 0.2 Baso % (Auto) 0.4 Lymph # (Auto) 1.8 Perry # (Auto) 0.9 Eos # (Auto) 0.0 Baso # (Auto) 0.0 Abs Immat Gran (auto) 0.08 H Absolute Neuts (auto) 7.7 Absolute Nucleated RBC 0.000 Nucleated RBC % (auto) 0.0 Sodium 139 Potassium 5.2 H Chloride 109 H Carbon Dioxide 16 L Anion Gap 19 BUN 56 H Creatinine 11.42 H* Estim Creat Clear Calc 4.5 Estimated GFR 5 POC Glucose 166 H Random Glucose 162 H Calcium 8.7 Total Bilirubin AST ALT Alkaline Phosphatase Troponin I High Sens B-Natriuretic Peptide Total Protein Albumin COVID-19 ([facility]IREZA) COVID-19 [facility] Com 12/29/22 12/29/22 12/30/22 07:11 11:17 05:34 WBC RBC Hgb Hct MCV MCH MCHC RDW Plt Count MPV Immature Gran % (Auto) Neut % (Auto) Lymph % (Auto) Perry % (Auto) Eos % (Auto) Baso % (Auto) Lymph # (Auto) Perry # (Auto) Eos # (Auto) Baso # (Auto) Abs Immat Gran (auto) Absolute Neuts (auto) Absolute Nucleated RBC Nucleated RBC % (auto) Sodium 135 Potassium 4.1 D Chloride 101 Carbon Dioxide 23 Anion Gap 15 BUN 34 H Creatinine 7.24 H* Estim Creat Clear Calc 9.6 Estimated GFR 8 POC Glucose 84 Random Glucose 78 Calcium 8.1 L D Total Bilirubin AST ALT Alkaline Phosphatase Troponin I High Sens 480.6 H* D B-Natriuretic Peptide Total Protein Albumin COVID-19 ([facility]) COVID-19 Clin Com Imaging Radiology Impressions: ITS Impressions Chest X-Ray 12/29/22 00:12 IMPRESSION: 1. Slightly increased perihilar and interstitial opacities which may reflect mild pulmonary edema or atypical/viral infection. 2. Similar trace left pleural effusion. 3. Right subclavian central venous catheter tip terminates at the cavoatrial junction. No pneumothorax. Mental Status Exam Mental Status Exam Narrative: Appearance: thin, male, wearing hospital gown, in bed, in no acute distress Behavior: cooperative Psychomotor: no agitation or retardation noted Speech: mostly clear, mumbles at times, regular rate/rhythm, volume, spontaneous TP: mostly linear TC: no overt psychosis or delusions, feeling better medically but not fully understanding that tx he declined today is the one that helped him breath better. Mood: good Affect: congruent SI: denies HI: denies VH/AH: none Delusions: none Insight/judgment: impaired x 2 secondary to cognitive impairments. Alert, not oriented to year nor month. He does know this is [facility], understands that he came due to dyspnea but struggling to connect how HD resolved symptoms. Medications Medications Current Medications Acetaminophen (Acetaminophen 325 Mg Tablet) 650 mg PO Q6H PRN PRN Reason: Pain, Mild (Pain Scale 1-3) Acetaminophen (Acetaminophen Supp 650 Mg Supp.Rect) 650 mg MI Q6H PRN PRN Reason: Pain, Mild (Pain Scale 1-3) Amlodipine Besylate (Amlodipine Besylate 10 Mg Tablet) 10 mg PO DAILY [facility]; Protocol Last Admin: 12/30/22 10:04 Dose: 10 mg Aspirin (Aspirin Enteric Coated 81 Mg Tablet.) 81 mg PO DAILY [facility] Last Admin: 12/30/22 10:04 Dose: 81 mg Atorvastatin Calcium (Atorvastatin Calcium 40 Mg Tablet) 40 mg PO BEDTIME [facility] Last Admin: 12/29/22 20:49 Dose: 40 mg Carvedilol (Carvedilol 6.25 Mg Tablet) 6.25 mg PO BID [facility]; Protocol Last Admin: 12/30/22 10:04 Dose: 6.25 mg Ferrous Sulfate (Ferrous Sulfate 324 Mg Tablet.) 324 mg PO DAILY [facility] Last Admin: 12/30/22 10:04 Dose: 324 mg Glucose (Glucose Gel 15 Gm Gel..Gram.) 15 gm PO Q15M PRN; Protocol PRN Reason: per Hypoglycemia Standing Ord. Heparin Sodium (Porcine) (Heparin Sodium,Porcine 5,000 Unit/Ml Vial) 5,000 unit INTRACATH TUTHSA@1645 [facility] Last Admin: 12/30/22 17:08 Dose: Not Given Heparin Sodium (Porcine) (Heparin Sodium,Porcine 5,000 Unit/Ml Vial) 5,000 unit SUBCUT Q12H [facility] Last Admin: 12/30/22 17:16 Dose: 5,000 unit Dextrose (D10) 250 mls @ 750 mls/hr IV Q15M PRN; Protocol PRN Reason: per Hypoglycemia Standing Ord. Insulin Glargine (Insulin Glargine,Hum.Rec.Anlog 100 Unit/Ml 10 Ml Vial) 35 unit SUBCUT DAILY [facility] Last Admin: 12/30/22 10:04 Dose: 35 unit Insulin Human Lispro (Insulin Lispro 100 Unit/Ml 3 Ml Vial) 0 unit SUBCUT QIDACHS [facility]; Protocol Last Admin: 12/30/22 16:43 Dose: Not Given Losartan Potassium (Losartan Potassium 50 Mg Tablet) 50 mg PO DAILY [facility]; Protocol Last Admin: 12/30/22 10:03 Dose: 50 mg Melatonin (Melatonin 3 Mg Tablet) 6 mg PO BEDTIME PRN PRN Reason: Insomnia Non-Formulary Medication (Ledipasvir-Sofosbuvir) 1 tab PO DAILY [facility] Omeprazole (Omeprazole 20 Mg Capsule.) 20 mg PO DAILY@0630 [facility] Last Admin: 12/30/22 05:34 Dose: 20 mg Ondansetron HCl (Ondansetron Hcl 4 Mg/2 Ml Vial) 4 mg IVPUSH Q8H PRN PRN Reason: Nausea and Vomiting Pharmacy Consult (Consult Rx Perform Med Rec) 1 each MISCELLANE ONCE PRN PRN Reason: Consult order Sodium Chloride (0.9 % Sodium Chloride Flush 3 Ml Syringe) 3 ml IVFLUSH QSHIFT [facility] Last Admin: 12/30/22 15:42 Dose: 3 ml Vitamin D (Cholecalciferol (Vitamin D3) 25 Mcg Tablet) 50 mcg PO DAILY [facility] Last Admin: 12/30/22 10:03 Dose: 50 mcg Allergies Allergies Allergy/AdvReac Type Severity Reaction Status Date / Time No Known Allergies Allergy Verified 12/28/22 23:46 Assessment & Plan Assessment & Plan (1) ESRD (end stage renal disease) on dialysis: Status: Acute Code(s): N18.6 - End stage renal disease; Z99.2 - Dependence on renal dialysis Plan Mr. Markham is a 62 year-old male with hx of end stage CKD on HD, admitted for fluid overload causing dyspnea due to pt declining to do HD in community. Pt had HD yesterday which improved fluid overload. However, pt declined to do HD this morning. Capacity assessment completed. Although pt able to report that he is here because he had difficulty breathing, feels better but unable to connect fact that his symptoms have improved because he had HD. He does states that today he learned (which is information that has been given to him several times and still unable to retain) that without HD his renal function will worsened and will he . However, at same time reports he had diarrhea and declined to go to HD, which was explained to pt can be managed easily with medications. Pt appears to have difficult retaining information, despite multiple efforts to explain this information and process more complex information regarding his care and treatment. It is clear in that he does not want to and wants medical treatments that can prevent him from dying prematurely. Pt DOES NOT SHOW capacity to make medical decisions at this time and this is not expect to change as impairments appeared to be related to underlying cognitive deficits (ability to retain/recall information, impairments in orientation, suspect executive function), not due to an acute mental status change as in delirium. While his sister was on the phone and with his RN as witnessed, pt did agree to sign HCP. He did show capacity to appoint a HCP, but not to make medical decisions. HCP form was completed. Note that due to parkinson's pt reports he usually makes a cross as signature. PLAN 1. Pt DOES NOT have capacity and not expected to be regain due to underlying cognitive impairments NOT due to delirum. Recommend MD, to invoke HCP. 2. HCP form in chart signed today. Total time managing care of this patient today ____ minutes.
[2022-12-30] MEDS: Atorvastatin Calcium 40 MG TABLET PO (20:51)
--- NOTE | 2022-12-30 21:23 | PC.NURSE ---
Pt blood sugar at 2009 was 56, pt given snack, juice, pudding and annalise crackers. Blood sugar checked 15 mins later was 77, pt given more juice and annalise crackers, blood sugar 30 mins later was 115[address] Dr Gutiérrez notified.
[2022-12-30] MEDS: Glucose Gel 15 GM GEL..GRAM. PO ×2 (22:45→23:00)
--- NOTE | 2022-12-30 23:20 | PC.NURSE ---
Blood sugar at 0 was 49 pt received Glucose Gel 30 grams, blood sugar is now 127. Dr Gutiérrez notified.
[2022-12-31 03:04] VITALS: BP 138/80; PULSE 70; RESP 17; TEMP 36.4; O2SAT 99
--- NOTE | 2022-12-31 03:26 | PC.NURSE ---
Pt blood sugar after Glucose Gel 30g at 2245 was 127. 1/2 hr after was 134. Dr Gutiérrez notified ordered POC q1hr x3. 0100 Blood sugar 90, 0200 blood sugar 71, 0300 blood sugar 81. Pt eat 1/2 of peanut butter and jelly sandwich at 0300.
[2022-12-31] MEDS: Dextrose 10 % 1,000 ML 75 ML IVCONT (03:46)
[2022-12-31] MEDS: Omeprazole 20 MG CAPSULE.DR PO (05:43)
[2022-12-31] MEDS: Heparin Sodium,Porcine 5,000 UNIT/ML VIAL 5000 UNIT SUBCUT ×2 (05:43→16:59)
[2022-12-31 06:48] LABS: Anion Gap 18 (12-20); Blood Urea Nitrogen 53 mg/dL (9-16); Calcium 7.7 mg/dL (8.4-10.2); Carbon Dioxide 21 mmol/L (22-29); Chloride 97 mmol/L (96-108); Estimated Glomerular Filt Rate 6; Glucose Random 103 mg/dL (60-115); Potassium 4.5 mmol/L (3.3-5.1); Sodium 131 mmol/L (135-145)
--- NOTE | 2022-12-31 07:42 | PC.NURSE ---
AM POC = 109, no lispro coverage, lantus on hold since patient had low blood sugars throughout night
[2022-12-31 08:00] VITALS: BP 152/73; PULSE 58; RESP 17; TEMP 36.6; O2SAT 99
[2022-12-31] MEDS: 0.9 % Sodium Chloride Flush 3 ML SYRINGE IVFLUSH ×3 (09:15→21:46)
[2022-12-31] MEDS: Ferrous Sulfate 324 MG TABLET.DR PO (09:15)
[2022-12-31] MEDS: Losartan Potassium 50 MG TABLET PO (09:16)
[2022-12-31] MEDS: amLODIPine Besylate 10 MG TABLET PO (09:16)
[2022-12-31] MEDS: Aspirin Enteric Coated 81 MG TABLET.DR PO (09:16)
[2022-12-31] MEDS: Cholecalciferol (Vitamin D3) 25 MCG TABLET 50 MCG PO (09:16)
[2022-12-31] MEDS: carvediloL 6.25 MG TABLET PO ×2 (09:16→21:41)
--- NOTE | 2022-12-31 09:37 | HO.PM.IMPN ---
Subjective Subjective Date of Service: 12/31/22 Interval History: This history was taken in German from the patient. Somewhat disoriented. Dyspnea has improved. Refused HD yesterday but now willing to go tomorrow. Hypoglycemic overnight Review of Systems Review of Systems: Yes all other systems are reviewed and are negative Physical Exam Vital Signs: Vital Signs: Last Vital Signs Temp 97.8 F 12/31/22 08:00 Pulse 58 12/31/22 08:00 Resp 17 12/31/22 08:00 BP 152/73 H 12/31/22 08:00 Pulse Ox 99 12/31/22 08:00 O2 Del Method Nasal Cannula 12/31/22 08:00 O2 Flow Rate 2.0 12/31/22 08:00 BMI result Body Mass Index 28.1 Gen: in no acute distress HEENT: sclera anicteric, moist mucus membranes Neck: supple, R subclavian tunneled dialysis catheter Lungs: inspiratory crackles bilateral bases Heart: regular rate and rhythm, no murmurs Abd: soft, non-tender, non-distended Ext: no edema Skin: warm/well-perfused Neuro: alert, disoriented Psych: appropriate affect Objective Data Active Medications Acetaminophen (Acetaminophen 325 Mg Tablet) 650 mg PO Q6H PRN PRN Reason: Pain, Mild (Pain Scale 1-3) Acetaminophen (Acetaminophen Supp 650 Mg Supp.Rect) 650 mg IN Q6H PRN PRN Reason: Pain, Mild (Pain Scale 1-3) Amlodipine Besylate (Amlodipine Besylate 10 Mg Tablet) 10 mg PO DAILY [facility]; Protocol Last Admin: 12/31/22 09:16 Dose: 10 mg Documented By: LADONNA Aspirin (Aspirin Enteric Coated 81 Mg Tablet.) 81 mg PO DAILY [facility] Last Admin: 12/31/22 09:16 Dose: 81 mg Documented By: LADONNA Atorvastatin Calcium (Atorvastatin Calcium 40 Mg Tablet) 40 mg PO BEDTIME [facility] Last Admin: 12/30/22 20:51 Dose: 40 mg Documented By: TONY Carvedilol (Carvedilol 6.25 Mg Tablet) 6.25 mg PO BID [facility]; Protocol Last Admin: 12/31/22 09:16 Dose: 6.25 mg Documented By: LADONNA Ferrous Sulfate (Ferrous Sulfate 324 Mg Tablet.) 324 mg PO DAILY [facility] Last Admin: 12/31/22 09:15 Dose: 324 mg Documented By: LADONNA Glucose (Glucose Gel 15 Gm Gel..Gram.) 15 gm PO Q15M PRN; Protocol PRN Reason: per Hypoglycemia Standing Ord. Last Admin: 12/30/22 23:00 Dose: 15 gm Documented By: TONY Comments: got 2nd bec poc <70 Heparin Sodium (Porcine) (Heparin Sodium,Porcine 5,000 Unit/Ml Vial) 5,000 unit INTRACATH TUTHSA@1645 [facility] Last Admin: 12/30/22 17:08 Dose: Not Given Documented By: LADONNA Non-Admin Reason: pt didn't go to diaylsis Heparin Sodium (Porcine) (Heparin Sodium,Porcine 5,000 Unit/Ml Vial) 5,000 unit SUBCUT Q12H [facility] Last Admin: 12/31/22 05:43 Dose: 5,000 unit Documented By: TONY Dextrose (D10) 250 mls @ 750 mls/hr IV Q15M PRN; Protocol PRN Reason: per Hypoglycemia Standing Ord. Dextrose (D10) 1,000 mls @ 75 mls/hr IVCONT .[id number] [facility] Last Admin: 12/31/22 03:46 Dose: 75 mls/hr Documented By: TONY Insulin Glargine (Insulin Glargine,Hum.Rec.Anlog 100 Unit/Ml 10 Ml Vial) 35 unit SUBCUT DAILY [facility] Last Admin: 12/30/22 10:04 Dose: 35 unit Documented By: LADONNA Insulin Human Lispro (Insulin Lispro 100 Unit/Ml 3 Ml Vial) 0 unit SUBCUT QIDACHS [facility]; Protocol Last Admin: 12/31/22 07:42 Dose: Not Given Documented By: LADONNA Non-Admin Reason: No Insulin Coverage Losartan Potassium (Losartan Potassium 50 Mg Tablet) 50 mg PO DAILY [facility]; Protocol Last Admin: 12/31/22 09:16 Dose: 50 mg Documented By: LADONNA Melatonin (Melatonin 3 Mg Tablet) 6 mg PO BEDTIME PRN PRN Reason: Insomnia Non-Formulary Medication (Ledipasvir-Sofosbuvir) 1 tab PO DAILY [facility] Omeprazole (Omeprazole 20 Mg Capsule.) 20 mg PO DAILY@0630 [facility] Last Admin: 12/31/22 05:43 Dose: 20 mg Documented By: TONY Ondansetron HCl (Ondansetron Hcl 4 Mg/2 Ml Vial) 4 mg IVPUSH Q8H PRN PRN Reason: Nausea and Vomiting Pharmacy Consult (Consult Rx Perform Med Rec) 1 each MISCELLANE ONCE PRN PRN Reason: Consult order Sodium Chloride (0.9 % Sodium Chloride Flush 3 Ml Syringe) 3 ml IVFLUSH QSHIFT [facility] Last Admin: 12/31/22 09:15 Dose: 3 ml Documented By: LADONNA Vitamin D (Cholecalciferol (Vitamin D3) 25 Mcg Tablet) 50 mcg PO DAILY [facility] Last Admin: 12/31/22 09:16 Dose: 50 mcg Documented By: LADONNA Labs 12/29/22 07:11 12/31/22 05:41 Labs: Laboratory Results - last 24 hr 12/31/22 05:41 Anion Gap 18 Estim Creat Clear Calc 8.0 Estimated GFR 6 Random Glucose 103 Calcium 7.7 L Assessment and Plan (1) Hypoxia: Status: Acute (2) ESRD (end stage renal disease) on dialysis: Status: Acute Plan d#3 62yo M with ESRD on HD, HTN, mood disorder, DM2, HLD, HCV presented with dyspnea, admitted for hypoxia due to acute/chronic HFrEF + HTN emergecny due to noncompliance with HD and home meds # acute hypoxic resp failure due to acute/chronic HFrEF due to noncompliance with HD + home meds - HD Sunday, refused yesterday, will get tomorrow - resumed carvedilol, losartan, amlodipine - weaned off O2 # HTN emergency due to medication noncompliance - resumed home meds as above # troponin elevation - likely due to ESRD + CHF, no chest pain or EKG changes, recently had TTE with moderate global hypokinesis, EF 35-40% and grade 1 diastolic dysfunction, no further workup warranted. # DM2 with hypoglycemia - d/c basal insulin, continue bolus # HCV - home antivirals- sister can't find them- will try to get a hold of pt's VNA program # cognitive impairment - psych evaluation # VTE ppx: UFH # dispo: STR, PT eval requested In my clinical judgment, the patient requires continued inpatient hospitalization for the following reasons: urgent HD Time Spent With Patient Time: Total time managing care of this patient today __35__ minutes. Quality Stroke Does the patient have a stroke diagnosis?: No VTE Prior VTE?: No VTE Risk Level:: Medical - moderate - high VTE Device Contraindication: Treatment Not Indicated VTE Drug Contraindication: N/A - Med Ordered
--- NOTE | 2022-12-31 10:13 | PC.NURSE ---
D10 @ 75ml/hr infusion DC by Dr. Ratliff. Blood sugars Qhr for 4hrs ordered. 1000 POC = 93
--- NOTE | 2022-12-31 10:42 | P.PNNP_ITS ---
Subjective Subjective Date of Service: 12/31/22 Interval history: Seen AM. All recent data reviewed. D/W Hospitalist Physical Exam Vital Signs: Vital Signs: Last Vital Signs Temp 97.8 F 12/31/22 08:00 Pulse 58 12/31/22 08:00 Resp 17 12/31/22 08:00 BP 152/73 H 12/31/22 08:00 Pulse Ox 99 12/31/22 08:00 O2 Del Method Nasal Cannula 12/31/22 08:00 O2 Flow Rate 2.0 12/31/22 08:00 BMI result Body Mass Index 28.1 Const: General: comfortable Eyes: EOM: EOMs intact bilaterally Neck: Neck: Yes supple Resp: Auscultation: diminished lung sounds Cardio: Rate: regular rate GI: Palpation (GI): Soft to palpation Skin: General skin exam: no rashes or lesions noted Neuro: General: moves all extremities Objective Data Labs 12/29/22 07:11 12/31/22 05:41 Labs: Laboratory Results - last 24 hr 12/31/22 05:41 Sodium 131 L Potassium 4.5 Chloride 97 Carbon Dioxide 21 L Anion Gap 18 BUN 53 H Creatinine 8.65 H* Estim Creat Clear Calc 8.0 Estimated GFR 6 Random Glucose 103 Calcium 7.7 L Procedures Date of Service Date of Service: 12/31/22 Assessment & Plan Assessment and plan (1) ESRD (end stage renal disease) on dialysis: Status: Acute Assessment and Plan: Non compliant with HD Recently initiated on HD Had outpatient HD spot in [facility] 2 Gram Na, 2 Gram K diet with fluid/phos restriction Phos binders with meals Shall closely follow along Progress Note: Quality Stroke Does the patient have a stroke diagnosis?: No
[2022-12-31 11:21] VITALS: BP 140/68; PULSE 57; RESP 17; TEMP 36.7; O2SAT 97
[2022-12-31 16:00] VITALS: BP 170/86; PULSE 73; RESP 22; TEMP 36.1; O2SAT 97
[2022-12-31] MEDS: Insulin Lispro 100 UNIT/ML 3 ML VIAL SUBCUT (16:59)
[2022-12-31 20:00] VITALS: BP 145/82; PULSE 70; RESP 18; TEMP 36.8; O2SAT 98
[2022-12-31] MEDS: Atorvastatin Calcium 40 MG TABLET PO (21:41)
[2022-12-31 23:47] VITALS: BP 130/60; PULSE 57; RESP 16; TEMP 36.6; O2SAT 96
[2023-01-01] VITALS (8 sets, daily range): BP systolic 140–170; BP diastolic 58–77; PULSE 59–72; RESP 16–20; TEMP 36.2–36.6; O2SAT 95–100
[2023-01-01] MEDS: Omeprazole 20 MG CAPSULE.DR PO (05:48)
[2023-01-01] MEDS: Heparin Sodium,Porcine 5,000 UNIT/ML VIAL 5000 UNIT SUBCUT ×2 (05:49→17:19)
[2023-01-01 07:25] LABS: Glucose, Whole Blood 118 mg/dL (60-115)
[2023-01-01 07:27] LABS: Glucose, Whole Blood 168 mg/dL (60-115)
[2023-01-01 07:28] LABS: Glucose, Whole Blood 104 mg/dL (60-115)
[2023-01-01 07:29] LABS: Glucose, Whole Blood 148 mg/dL (60-115)
[2023-01-01 07:30] LABS: Glucose, Whole Blood 109 mg/dL (60-115)
[2023-01-01 07:31] LABS: Glucose, Whole Blood 90 mg/dL (60-115)
[2023-01-01 07:32] LABS: Glucose, Whole Blood 93 mg/dL (60-115)
[2023-01-01 07:35] LABS: Glucose, Whole Blood 87 mg/dL (60-115)
[2023-01-01 07:36] LABS: Glucose, Whole Blood 109 mg/dL (60-115)
[2023-01-01 07:37] LABS: Glucose, Whole Blood 81 mg/dL (60-115)
[2023-01-01 07:38] LABS: Glucose, Whole Blood 71 mg/dL (60-115)
[2023-01-01 07:39] LABS: Glucose, Whole Blood 90 mg/dL (60-115)
[2023-01-01 07:40] LABS: Glucose, Whole Blood 134 mg/dL (60-115)
[2023-01-01 07:42] LABS: Glucose, Whole Blood 127 mg/dL (60-115)
[2023-01-01 07:42] LABS: Glucose, Whole Blood 49 mg/dL (60-115)
[2023-01-01 07:43] LABS: Glucose, Whole Blood 115 mg/dL (60-115)
[2023-01-01 07:45] LABS: Glucose, Whole Blood 56 mg/dL (60-115)
[2023-01-01 07:45] LABS: Glucose, Whole Blood 116 mg/dL (60-115)
[2023-01-01 07:45] LABS: Glucose, Whole Blood 77 mg/dL (60-115)
[2023-01-01 07:47] LABS: Glucose, Whole Blood 71 mg/dL (60-115)
[2023-01-01 07:48] LABS: Glucose, Whole Blood 79 mg/dL (60-115)
[2023-01-01 07:48] LABS: Glucose, Whole Blood 50 mg/dL (60-115)
[2023-01-01 07:49] LABS: Glucose, Whole Blood 116 mg/dL (60-115)
[2023-01-01 07:50] LABS: Glucose, Whole Blood 101 mg/dL (60-115)
[2023-01-01] MEDS: Losartan Potassium 50 MG TABLET PO (08:31)
[2023-01-01] MEDS: Ferrous Sulfate 324 MG TABLET.DR PO (08:31)
[2023-01-01] MEDS: amLODIPine Besylate 10 MG TABLET PO (08:31)
[2023-01-01] MEDS: 0.9 % Sodium Chloride Flush 3 ML SYRINGE IVFLUSH ×3 (08:31→20:11)
[2023-01-01] MEDS: carvediloL 6.25 MG TABLET PO ×2 (08:31→20:11)
[2023-01-01] MEDS: Aspirin Enteric Coated 81 MG TABLET.DR PO (08:31)
[2023-01-01] MEDS: Cholecalciferol (Vitamin D3) 25 MCG TABLET 50 MCG PO (08:31)
--- NOTE | 2023-01-01 11:11 | HO.PM.IMPN ---
Subjective Subjective Date of Service: 01/01/23 Interval History: This history was taken in Lithuanian from the patient. Dyspnea resolved. Agrees to HD tomorrow. No further hypoglycemia. Review of Systems Review of Systems: Yes all other systems are reviewed and are negative Physical Exam Vital Signs: Vital Signs: Last Vital Signs Temp 97.3 F 01/01/23 07:26 Pulse 66 01/01/23 07:26 Resp 18 01/01/23 07:26 BP 163/74 H 01/01/23 07:26 Pulse Ox 97 01/01/23 07:26 O2 Del Method Room Air 01/01/23 07:26 O2 Flow Rate 2.0 12/31/22 08:00 BMI result Body Mass Index 28.1 Gen: in no acute distress HEENT: sclera anicteric, moist mucus membranes Neck: supple, R subclavian tunneled dialysis catheter Lungs: inspiratory crackles bilateral bases Heart: regular rate and rhythm, no murmurs Abd: soft, non-tender, non-distended Ext: no edema Skin: warm/well-perfused Neuro: alert, disoriented Psych: appropriate affect Objective Data Active Medications Acetaminophen (Acetaminophen 325 Mg Tablet) 650 mg PO Q6H PRN PRN Reason: Pain, Mild (Pain Scale 1-3) Acetaminophen (Acetaminophen Supp 650 Mg Supp.Rect) 650 mg VA Q6H PRN PRN Reason: Pain, Mild (Pain Scale 1-3) Amlodipine Besylate (Amlodipine Besylate 10 Mg Tablet) 10 mg PO DAILY [facility]; Protocol Last Admin: 01/01/23 08:31 Dose: 10 mg Documented By: DANAE Aspirin (Aspirin Enteric Coated 81 Mg Tablet.) 81 mg PO DAILY [facility] Last Admin: 01/01/23 08:31 Dose: 81 mg Documented By: DANAE Atorvastatin Calcium (Atorvastatin Calcium 40 Mg Tablet) 40 mg PO BEDTIME [facility] Last Admin: 12/31/22 21:41 Dose: 40 mg Documented By: CORWIN Carvedilol (Carvedilol 6.25 Mg Tablet) 6.25 mg PO BID [facility]; Protocol Last Admin: 01/01/23 08:31 Dose: 6.25 mg Documented By: DANAE Ferrous Sulfate (Ferrous Sulfate 324 Mg Tablet.) 324 mg PO DAILY [facility] Last Admin: 01/01/23 08:31 Dose: 324 mg Documented By: DANAE Glucose (Glucose Gel 15 Gm Gel..Gram.) 15 gm PO Q15M PRN; Protocol PRN Reason: per Hypoglycemia Standing Ord. Last Admin: 12/30/22 23:00 Dose: 15 gm Documented By: TONY Comments: got 2nd bec poc <70 Heparin Sodium (Porcine) (Heparin Sodium,Porcine 5,000 Unit/Ml Vial) 5,000 unit INTRACATH TUTHSA@1645 [facility] Last Admin: 12/30/22 17:08 Dose: Not Given Documented By: LADONNA Non-Admin Reason: pt didn't go to diaylsis Heparin Sodium (Porcine) (Heparin Sodium,Porcine 5,000 Unit/Ml Vial) 5,000 unit SUBCUT Q12H [facility] Last Admin: 01/01/23 05:49 Dose: 5,000 unit Documented By: CORWIN Dextrose (D10) 250 mls @ 750 mls/hr IV Q15M PRN; Protocol PRN Reason: per Hypoglycemia Standing Ord. Insulin Glargine (Insulin Glargine,Hum.Rec.Anlog 100 Unit/Ml 10 Ml Vial) 35 unit SUBCUT DAILY [facility] Last Admin: 12/30/22 10:04 Dose: 35 unit Documented By: LADONNA Insulin Human Lispro (Insulin Lispro 100 Unit/Ml 3 Ml Vial) 0 unit SUBCUT QIDACHS [facility]; Protocol Last Admin: 01/01/23 08:31 Dose: Not Given Documented By: DANAE Non-Admin Reason: No Insulin Coverage Losartan Potassium (Losartan Potassium 50 Mg Tablet) 50 mg PO DAILY [facility]; Protocol Last Admin: 01/01/23 08:31 Dose: 50 mg Documented By: DANAE Melatonin (Melatonin 3 Mg Tablet) 6 mg PO BEDTIME PRN PRN Reason: Insomnia Omeprazole (Omeprazole 20 Mg Capsule.) 20 mg PO DAILY@0630 [facility] Last Admin: 01/01/23 05:48 Dose: 20 mg Documented By: CORWIN Ondansetron HCl (Ondansetron Hcl 4 Mg/2 Ml Vial) 4 mg IVPUSH Q8H PRN PRN Reason: Nausea and Vomiting Pharmacy Consult (Consult Rx Perform Med Rec) 1 each MISCELLANE ONCE PRN PRN Reason: Consult order Sodium Chloride (0.9 % Sodium Chloride Flush 3 Ml Syringe) 3 ml IVFLUSH QSHIFT [facility] Last Admin: 01/01/23 08:31 Dose: 3 ml Documented By: DANAE Vitamin D (Cholecalciferol (Vitamin D3) 25 Mcg Tablet) 50 mcg PO DAILY [facility] Last Admin: 01/01/23 08:31 Dose: 50 mcg Documented By: DANAE Labs 12/29/22 07:11 12/31/22 05:41 Labs: Laboratory Results - last 24 hr 12/29/22 12/29/22 12/30/22 17:02 20:23 07:27 POC Glucose 101 116 H 79 12/30/22 12/30/22 12/30/22 11:25 12:12 16:41 POC Glucose 50 L* 71 116 H 12/30/22 12/30/22 12/30/22 20:05 20:26 21:16 POC Glucose 56 L* 77 115 12/30/22 12/30/22 12/30/22 22:32 23:15 23:50 POC Glucose 49 L* 127 H 134 H 12/31/22 12/31/22 12/31/22 01:01 02:00 03:06 POC Glucose 90 71 81 12/31/22 12/31/22 12/31/22 07:28 10:07 11:13 POC Glucose 109 93 90 12/31/22 12/31/22 12/31/22 12:04 13:23 15:35 POC Glucose 109 148 H 104 12/31/22 12/31/22 01/01/23 16:52 19:38 07:28 POC Glucose 168 H 118 H 87 Assessment and Plan (1) Hypoxia: Status: Acute (2) ESRD (end stage renal disease) on dialysis: Status: Acute Plan d#4 62yo M with ESRD on HD, HTN, mood disorder, DM2, HLD, HCV presented with dyspnea, admitted for hypoxia due to acute/chronic HFrEF + HTN emergecny due to noncompliance with HD and home meds # acute hypoxic resp failure due to acute/chronic HFrEF due to noncompliance with HD + home meds - HD Sunday, refused yesterday, will get tomorrow - resumed carvedilol, losartan, amlodipine - weaned off O2 # HTN emergency due to medication noncompliance - resumed home meds as above # troponin elevation - likely due to ESRD + CHF, no chest pain or EKG changes, recently had TTE with moderate global hypokinesis, EF 35-40% and grade 1 diastolic dysfunction, no further workup warranted. # DM2 with hypoglycemia - d/c basal insulin, continue bolus # HCV - pt never picked up Harvoni prescribed by PCP # cognitive impairment - psych evaluation: Pt DOES NOT have capacity and not expected to be regain due to underlying cognitive impairments NOT due to delirum # VTE ppx: UFH # dispo: STR, PT eval requested Spoke to pt's PCP Dr Shlomo Mcallister, . He agrees pt should be in SNF. In my clinical judgment, the patient requires continued inpatient hospitalization for the following reasons: HD then placement Time Spent With Patient Time: Total time managing care of this patient today _35___ minutes. Quality Stroke Does the patient have a stroke diagnosis?: No VTE Prior VTE?: No VTE Risk Level:: Medical - moderate - high VTE Device Contraindication: Treatment Not Indicated VTE Drug Contraindication: N/A - Med Ordered
[2023-01-01] MEDS: Insulin Lispro 100 UNIT/ML 3 ML VIAL SUBCUT ×2 (12:00→17:19)
--- NOTE | 2023-01-01 13:00 | MHC.CM.PN ---
PLAN IS FOR HD Sunday01/02/23 HOME WITH RESUMPTION OF SERVICES IS THE PLAN.
[2023-01-01 14:17] LABS: Glucose, Whole Blood 165 mg/dL (60-115)
--- NOTE | 2023-01-01 14:51 | MHC.CM.PN ---
PER CONVERSATION WITH SHAUNA ESPINAL PERSONNEL COORDINATOR, ERIN, , REFERRALS PLACED TO [facility] AND [facility]. [facility]Y PROVIDES TRANSPORT IF NEEDED. NEW HCP UPLOADED INTO [facility] AND FAXED TO ERIN @ [phone], ALONG WITH PSYCHIATRIC CONSULT. PLAN IS HD HERE TOMORROW (01/02/23) AMD DC
--- NOTE | 2023-01-01 16:47 | PM.PNNEP ---
Subjective Subjective Date of Service: 01/01/23 Interval history: Seen and examined events noted Physical Exam Vital Signs: Vital Signs: Last Vital Signs Temp 97.2 F 01/01/23 15:43 Pulse 72 01/01/23 15:43 Resp 17 01/01/23 15:43 BP 147/70 H 01/01/23 15:43 Pulse Ox 95 01/01/23 15:43 O2 Del Method Room Air 01/01/23 15:43 O2 Flow Rate 2.0 12/31/22 08:00 BMI result Body Mass Index 28.1 Const: General: comfortable and no acute distress Orientation/consciousness: patient oriented x3 Eyes: EOM: EOMs intact bilaterally Neck: Neck: Yes supple Resp: Auscultation: diminished lung sounds Cardio: Rate: regular rate GI: Palpation (GI): Soft to palpation Skin: General skin exam: no rashes or lesions noted Neuro: General: patient oriented x3 and moves all extremities Objective Data Labs 12/29/22 07:11 12/31/22 05:41 Labs: Laboratory Results - last 24 hr 12/29/22 12/29/22 12/30/22 17:02 20:23 07:27 POC Glucose 101 116 H 79 12/30/22 12/30/22 12/30/22 11:25 12:12 16:41 POC Glucose 50 L* 71 116 H 12/30/22 12/30/22 12/30/22 20:05 20:26 21:16 POC Glucose 56 L* 77 115 12/30/22 12/30/22 12/30/22 22:32 23:15 23:50 POC Glucose 49 L* 127 H 134 H 12/31/22 12/31/22 12/31/22 01:01 02:00 03:06 POC Glucose 90 71 81 12/31/22 12/31/22 12/31/22 07:28 10:07 11:13 POC Glucose 109 93 90 12/31/22 12/31/22 12/31/22 12:04 13:23 15:35 POC Glucose 109 148 H 104 12/31/22 12/31/22 01/01/23 16:52 19:38 07:28 POC Glucose 168 H 118 H 87 01/01/23 11:14 POC Glucose 165 H Procedures Date of Service Date of Service: 01/01/23 Assessment & Plan Assessment and plan (1) ESRD (end stage renal disease) on dialysis: Status: Acute Assessment and Plan: ESRD: TTS at HDU -non-compliant w HD Anemia: EPO/FE per protoocl MBD 0f CKD REC: d/c planning; HD in am Time Spent With Patient Time: Total time managing care of this patient today ____ minutes. Progress Note: Quality Stroke Does the patient have a stroke diagnosis?: No
[2023-01-01] MEDS: Atorvastatin Calcium 40 MG TABLET PO (20:11)
--- NOTE | 2023-01-01 21:00 | PC.NURSE ---
Patient POC was checked by AKBAR LAM to be 98, glucometer unable to transmit the result.
--- NOTE | 2023-01-01 21:05 | PC.NURSE ---
Pt blood pressure was elevated with a systolic of 170 mmHg, pt denies SOB and chest pain. This RN gave scheduled 6.25 mg of CarvediloL, Dr. Gutiérrez was notified, no new meds ordered. Recheck blood pressure was 152/68.
--- NOTE | 2023-01-01 22:05 | PC.NURSE ---
Pt blood pressure was elevated with a systolic of 170 mmHg, this RN gave scheduled 6.[address] Gutiérrez was notified, no new meds ordered. Will reassess blood pressure in 30 minutes.
[2023-01-02 03:23] VITALS: BP 174/78; PULSE 67; RESP 18; TEMP 36.6; O2SAT 100
[2023-01-02 03:40] VITALS: BP 158/62
[2023-01-02] MEDS: Heparin Sodium,Porcine 5,000 UNIT/ML VIAL 5000 UNIT SUBCUT (05:09)
[2023-01-02] MEDS: Omeprazole 20 MG CAPSULE.DR PO (05:09)
[2023-01-02 07:15] VITALS: BP 174/79; PULSE 68; RESP 18; TEMP 36.3; O2SAT 98
[2023-01-02] MEDS: Aspirin Enteric Coated 81 MG TABLET.DR PO (07:36)
[2023-01-02] MEDS: amLODIPine Besylate 10 MG TABLET PO (07:36)
[2023-01-02] MEDS: Cholecalciferol (Vitamin D3) 25 MCG TABLET 50 MCG PO (07:36)
[2023-01-02] MEDS: 0.9 % Sodium Chloride Flush 3 ML SYRINGE IVFLUSH (07:37)
[2023-01-02] MEDS: Ferrous Sulfate 324 MG TABLET.DR PO (07:37)
[2023-01-02] MEDS: carvediloL 6.25 MG TABLET PO (07:37)
[2023-01-02] MEDS: Losartan Potassium 50 MG TABLET PO (07:37)
[2023-01-02 09:02] LABS: Glucose, Whole Blood 142 mg/dL (60-115)
[2023-01-02 09:04] LABS: Glucose, Whole Blood 97 mg/dL (60-115)
[2023-01-02 09:05] LABS: Glucose, Whole Blood 184 mg/dL (60-115)
[2023-01-02 09:08] LABS: Glucose, Whole Blood 190 mg/dL (60-115)
--- NOTE | 2023-01-02 10:26 | HO.PM.IMPN ---
Subjective Subjective Date of Service: 01/02/23 Interval History: This history was taken in Greek from the patient. in HD now and recommits to adherence with HD no dyspnea no pain Review of Systems Review of Systems: Yes all other systems are reviewed and are negative Physical Exam Vital Signs: Vital Signs: Last Vital Signs Temp 97.4 F 01/02/23 07:15 Pulse 68 01/02/23 07:15 Resp 18 01/02/23 07:15 BP 174/79 H 01/02/23 07:15 Pulse Ox 98 01/02/23 07:15 O2 Del Method Room Air 01/02/23 07:15 O2 Flow Rate 3 01/02/23 03:23 BMI result Body Mass Index 28.1 Gen: in no acute d istress HEENT: scl era anicteric, nathen st mucus membranes Neck: supple, R s ubclavian tunneled dialysis catheter Lungs: clear bila terally Heart: reg ular rate and rhyt hm, no murmurs Abd : soft, non-tender , non-distended Ex t: no edema Skin: warm/well-perfused Neuro: alert, dis oriented Psych: ap propriate affect Objective Data Active Medications Acetaminophen (Acetaminophen 325 Mg Tablet) 650 mg PO Q6H PRN PRN Reason: Pain, Mild (Pain Scale 1-3) Acetaminophen (Acetaminophen Supp 650 Mg Supp.Rect) 650 mg RI Q6H PRN PRN Reason: Pain, Mild (Pain Scale 1-3) Amlodipine Besylate (Amlodipine Besylate 10 Mg Tablet) 10 mg PO DAILY [facility]; Protocol Last Admin: 01/02/23 07:36 Dose: 10 mg Documented By: JOVITA Aspirin (Aspirin Enteric Coated 81 Mg Tablet.) 81 mg PO DAILY [facility] Last Admin: 01/02/23 07:36 Dose: 81 mg Documented By: JOVITA Atorvastatin Calcium (Atorvastatin Calcium 40 Mg Tablet) 40 mg PO BEDTIME [facility] Last Admin: 01/01/23 20:11 Dose: 40 mg Documented By: OZORALB Carvedilol (Carvedilol 6.25 Mg Tablet) 6.25 mg PO BID [facility]; Protocol Last Admin: 01/02/23 07:37 Dose: 6.25 mg Documented By: JOVITA Ferrous Sulfate (Ferrous Sulfate 324 Mg Tablet.) 324 mg PO DAILY [facility] Last Admin: 01/02/23 07:37 Dose: 324 mg Documented By: JOVITA Glucose (Glucose Gel 15 Gm Gel..Gram.) 15 gm PO Q15M PRN; Protocol PRN Reason: per Hypoglycemia Standing Ord. Last Admin: 12/30/22 23:00 Dose: 15 gm Documented By: TONY Comments: got 2nd bec poc <70 Heparin Sodium (Porcine) (Heparin Sodium,Porcine 5,000 Unit/Ml Vial) 5,000 unit INTRACATH TUTHSA@1645 [facility] Last Admin: 12/30/22 17:08 Dose: Not Given Documented By: LADONNA Non-Admin Reason: pt didn't go to diaylsis Heparin Sodium (Porcine) (Heparin Sodium,Porcine 5,000 Unit/Ml Vial) 5,000 unit SUBCUT Q12H [facility] Last Admin: 01/02/23 05:09 Dose: 5,000 unit Documented By: CALLI Dextrose (D10) 250 mls @ 750 mls/hr IV Q15M PRN; Protocol PRN Reason: per Hypoglycemia Standing Ord. Insulin Glargine (Insulin Glargine,Hum.Rec.Anlog 100 Unit/Ml 10 Ml Vial) 35 unit SUBCUT DAILY [facility] Last Admin: 12/30/22 10:04 Dose: 35 unit Documented By: LADONNA Insulin Human Lispro (Insulin Lispro 100 Unit/Ml 3 Ml Vial) 0 unit SUBCUT QIDACHS [facility]; Protocol Last Admin: 01/02/23 07:32 Dose: Not Given Documented By: JOVITA Non-Admin Reason: No Insulin Coverage Losartan Potassium (Losartan Potassium 50 Mg Tablet) 50 mg PO DAILY [facility]; Protocol Last Admin: 01/02/23 07:37 Dose: 50 mg Documented By: JOVITA Melatonin (Melatonin 3 Mg Tablet) 6 mg PO BEDTIME PRN PRN Reason: Insomnia Omeprazole (Omeprazole 20 Mg Capsule.) 20 mg PO DAILY@0630 [facility] Last Admin: 01/02/23 05:09 Dose: 20 mg Documented By: CALLI Ondansetron HCl (Ondansetron Hcl 4 Mg/2 Ml Vial) 4 mg IVPUSH Q8H PRN PRN Reason: Nausea and Vomiting Pharmacy Consult (Consult Rx Perform Med Rec) 1 each MISCELLANE ONCE PRN PRN Reason: Consult order Sodium Chloride (0.9 % Sodium Chloride Flush 3 Ml Syringe) 3 ml IVFLUSH QSHIFT [facility] Last Admin: 01/02/23 07:37 Dose: 3 ml Documented By: JOVITA Vitamin D (Cholecalciferol (Vitamin D3) 25 Mcg Tablet) 50 mcg PO DAILY [facility] Last Admin: 01/02/23 07:36 Dose: 50 mcg Documented By: JOVITA Labs 12/29/22 07:11 12/31/22 05:41 Labs: Laboratory Results - last 24 hr 01/01/23 01/01/23 01/01/23 11:14 16:24 17:05 POC Glucose 165 H 190 H 184 H 01/01/23 01/02/23 20:13 07:18 POC Glucose 97 142 H Assessment and Plan (1) Hypoxia: Status: Acute (2) ESRD (end stage renal disease) on dialysis: Status: Acute Plan d#5 62yo M with ESRD on HD, HTN, mood disorder, DM2, HLD, HCV presented with dyspnea, admitted for hypoxia due to acute/chronic HFrEF + HTN emergecny due to noncompliance with HD and home meds # acute hypoxic resp failure due to acute/chronic HFrEF due to noncompliance with HD + home meds - HD Sunday, refused Sunday, getting it today - resumed carvedilol, losartan, amlodipine - weaned off O2 # HTN emergency due to medication noncompliance - resumed home meds as above # troponin elevation - likely due to ESRD + CHF, no chest pain or EKG changes, recently had TTE with moderate global hypokinesis, EF 35-40% and grade 1 diastolic dysfunction, no further workup warranted. # DM2 with hypoglycemia - d/c basal insulin, continue bolus # HCV - pt never picked up Harvoni prescribed by PCP # cognitive impairment - psych evaluation: Pt DOES NOT have capacity and not expected to be regain due to underlying cognitive impairments NOT due to delirum # VTE ppx: UFH # dispo: STR Spoke to pt's PCP Dr Shlomo Mcallister, on 01/01/23. He agrees pt should be in SNF. In my clinical judgment, the patient requires continued inpatient hospitalization for the following reasons: HD then placement Time Spent With Patient Time: Total time managing care of this patient today __25__ minutes. Quality Stroke Does the patient have a stroke diagnosis?: No VTE Prior VTE?: No VTE Risk Level:: Medical - moderate - high VTE Device Contraindication: Treatment Not Indicated VTE Drug Contraindication: N/A - Med Ordered
--- NOTE | 2023-01-02 10:28 | MHC.CM.PN ---
MESSAGE LEFT FOR HCP, SAMRA @ [phone] TO CALL THIS RESIDENTIAL PROPERTY CONSULTANT BACK. CASE MANAGEMENT ATTEMPTING TO SECURE DC PLAN
[2023-01-02 11:09] VITALS: BP 132/101; PULSE 61; RESP 16; TEMP 36.4; O2SAT 100
--- NOTE | 2023-01-02 11:10 | MHC.CM.PN ---
CALL TO SHAUNA DIRECTOR DIGITAL MARKETING, ERIN @ [phone] ERIN PLANS OT SPEAK WITH NEGRA'S PCP AND CARETEAM TO COME UP WITH A PLAN FOR DC. SAMRA DOES NOT WANT TO SEND PATIENT TO REHAB, HE DOES NOT WANT TO GO SAMRA AWARE THAT HCP IS INVOKED BUT WILL DO WHAT HE WANTS ERIN TO ALSO REACH OUT TO [facility] (WHO SAYS THAT THERE IS NO BED AVAILABLE) ERIN IS AWARE THAT PLAN IS FOR DC TODAY
--- NOTE | 2023-01-02 12:54 | PC.NURSE ---
PT REQUESTING TO LEAVE , PT EDUCATED ON IMPORTANCE OF STAYING , MD MADE AWARE , CASE MANAGEMENT AWARE . SISTER SAMRA CALLED AND SISTER STATES SHE WANTS TO HONOR HIS WISHES AND THAT SHE IS COMING TO GET HIM . IV REMOVED , PT SIGNED AMA PAPERWORK
--- NOTE | 2023-01-02 13:00 | MHC.CM.PN ---
PATIENT AWARE THAT HE CANNOT LEAVE AMA WITHOUT HCP CONSENT. HCP IS AGREEING TO HAVE PATIENT LEAVE. SNF REFERRALS UPDATED
--- NOTE | 2023-01-02 13:17 | MHC.CM.PN ---
POST AMA NOTE- CALL TO SHUANA ([facility]) SENIOR NETWORK SYSTEMS ENGINEER , ERIN [phone] ERIN AWARE OF AMA STATUS. PER ERIN, THEIR BIOLOGICAL AIDE IS FILING WITH [facility]. DC PAPER WORK TO BE FAXED TO ERIN @ [phone]
[2023-01-02 13:58] LABS: Glucose, Whole Blood 149 mg/dL (60-115)
--- NOTE | 2023-01-02 14:36 | PM.DS ---
DS: Providers Provider Date of Service: 01/02/23 Date of admission: 12/29/22 01:33 Date of discharge: 01/02/23 Primary care physician: Shlomo Mcallister DO Consults: 12/29/22 01:33 Consult to Nephrology Routine Consulting Provider: Negro Teixeira Reason for consultation: ESRD 12/30/22 15:01 Consult to Psychiatry Routine Consulting Provider: Psych Covering Reason for consultation: refusing HD. ?competent DS: Diagnosis Discharge Diagnosis (1) Hypoxia: Status: Acute (2) ESRD (end stage renal disease) on dialysis: Status: Acute (3) Fluid overload: Status: Acute (4) Noncompliance: Status: Acute (5) Left against medical advice: Status: Acute (6) Hypertensive emergency: Status: Acute (7) Acute on chronic HFrEF (heart failure with reduced ejection fraction): Status: Acute DS: Summary Hospital Course Hospital Course: from admission H+P by Dr Elias Lamar, 12/29/22: This is a 62-year-old male with pertinent history of end-stage renal disease on dialysis, essential hypertension, mood disorder, insulin-dependent diabetes mellitus, mixed hyperlipidemia, hepatitis-C who presents to the emergency department for evaluation of dyspnea.? Patient was recently admitted and discharged on 12/12 after he was initiated on hemodialysis for his progression of CKD stage 5.? Patient had presented with dyspnea due to fluid overload which improved with hemodialysis sessions in the hospital.? Patient was established with dialysis upon discharge.? Patient states he did not go for dialysis as he does not like it.? Presents today with worsening dyspnea, worse with exertion.? Patient has also not been compliant with his medications.? Patient denies fever, chills, chest discomfort, palpitations, abdominal pain, changes in urinary or bowel habits In the emergency department, patient's blood pressure was significantly elevated upon arrival. Chest x-ray with pulmonary edema and he was placed on 2L supplemental oxygen 62yo M with ESRD on HD, HTN, mood disorder, DM2, HLD, and HCV who presented with dyspnea was admitted for hypoxia due to acute/chronic HFrEF + HTN emergecny due to noncompliance with HD and home meds. He underwent HD 12/29/22 with improvement in symptoms. He was weaned off oxygen and BP improved. He was scheduled for HD again 12/30/22 but refused it. He underwent HD 01/02/23 but then afterwards, decided to leave the hospital. He had been seen by Psychiatry and deemed not to have decision-making capacity due to cognitive impairment. However, his sister, his HCP, went along with the patient's wishes and agreed to sign him out of the hospital AMA despite counseling on the risks of and disability. They were counseled to return to the hospital EMM[facility]UEL. Time Spent with Patient Time attestation: Total time managing care of this patient today ____ minutes. Discharge coordination time: Greater than 30 minutes Quality: Safe Use of Opioids Does Pt have an Active Cancer Diagnosis on the Problem List?: No Quality: Stroke Does the patient have a stroke diagnosis?: No Physical Exam Vital Signs: Vital Signs: Last Vital Signs Temp 97.6 F 01/02/23 11:09 Pulse 61 01/02/23 11:09 Resp 16 01/02/23 11:09 BP 132/101 H 01/02/23 11:09 Pulse Ox 100 01/02/23 11:09 O2 Del Method Room Air 01/02/23 11:09 O2 Flow Rate 3 01/02/23 03:23 BMI result Body Mass Index 28.1 Gen: in no acute d istress HEENT: scl era anicteric, nathen st mucus membranes Neck: supple, R s ubclavian tunneled ?dialysis catheter Lungs: clear bila terally Heart: reg ular rate and rhyt hm, no murmurs Abd : soft, non-tender , non-distended Ex t: no edema Skin: warm/well-perfused Neuro: alert, dis oriented Psych: ap propriate affect DS: Data Data Completed and Pending Completed studies during hospitalization [Text1]: Laboratory Results WBC 10.4 X10*3/uL (4.8-10.8) 12/29/22 07:11 RBC 3.52 X10*6/uL (4.60-5.80) L 12/29/22 07:11 Hgb 9.9 g/dl (14.0-18.0) L 12/29/22 07:11 Hct 30.6 % (42.0-52.0) L 12/29/22 07:11 MCV 86.9 fL (80.0-98.0) 12/29/22 07:11 MCH 28.1 pg (27.0-33.0) 12/29/22 07:11 MCHC 32.4 g/dl (31.0-36.0) 12/29/22 07:11 RDW 15.6 % (11.0-16.0) 12/29/22 07:11 Plt Count 393 X10*3/uL (160-400) 12/29/22 07:11 MPV 9.9 fL (9.4-12.4) 12/29/22 07:11 Immature Gran % (Auto) 0.8 % (0.0-0.4) H 12/29/22 07:11 Neut % (Auto) 73.4 % (45-73) H 12/29/22 07:11 Lymph % (Auto) 17.0 % (20-40) L 12/29/22 07:11 [place] % (Auto) 8.2 % (2-11) 12/29/22 07:11 Eos % (Auto) 0.2 % (0-4) 12/29/22 07:11 Baso % (Auto) 0.4 % (0-2) 12/29/22 07:11 Lymph # (Auto) 1.8 X10*3/uL (1.2-4.9) 12/29/22 07:11 [place] # (Auto) 0.9 X10*3/uL (0.1-1.2) 12/29/22 07:11 Eos # (Auto) 0.0 X10*3/uL (0.0-0.4) 12/29/22 07:11 Baso # (Auto) 0.0 X10*3/uL (0.0-0.2) 12/29/22 07:11 Abs Immat Gran (auto) 0.08 X10*3/uL (0.00-0.03) H 12/29/22 07:11 Absolute Neuts (auto) 7.7 x10*3/uL (2.0-8.3) 12/29/22 07:11 Absolute Nucleated RBC 0.000 X10*3/uL (0.0-0.012) 12/29/22 07:11 Nucleated RBC % (auto) 0.0 /100WBC (0.0-0.2) 12/29/22 07:11 Sodium 131 mmol/L (135-145) L 12/31/22 05:41 Potassium 4.5 mmol/L (3.3-5.1) 12/31/22 05:41 Chloride 97 mmol/L (96-108) 12/31/22 05:41 Carbon Dioxide 21 mmol/L (22-29) L 12/31/22 05:41 Anion Gap 18 (12-20) 12/31/22 05:41 BUN 53 mg/dL (9-16) H 12/31/22 05:41 Creatinine 8.65 mg/dL (0.5-1.4) H* 12/31/22 05:41 Estim Creat Clear Calc 8.0 12/31/22 05:41 Estimated GFR 6 12/31/22 05:41 POC Glucose 149 mg/dL (60-115) H 01/02/23 11:12 Random Glucose 103 mg/dL (60-115) 12/31/22 05:41 Calcium 7.7 mg/dL (8.4-10.2) L 12/31/22 05:41 Total Bilirubin 0.6 mg/dL (0.0-1.0) 12/29/22 00:05 AST 14 U/L (5-37) 12/29/22 00:05 ALT 11 U/L (0-40) 12/29/22 00:05 Alkaline Phosphatase 132 U/L (39-117) H 12/29/22 00:05 Troponin I High Sens 480.6 ng/L (<3.5-35.0) H* D 12/29/22 07:11 B-Natriuretic Peptide 9996 pg/mL (<100) H 12/29/22 00:05 Total Protein 6.3 g/dL (6.5-8.0) L 12/29/22 00:05 Albumin 2.8 g/dL (3.5-5.0) L 12/29/22 00:05 COVID-19 (ALIREZA) Negative (Negative) 12/29/22 00:05 COVID-19 Clin Com See Note 12/29/22 00:05 Impressions Chest X-Ray 12/29/22 00:12 IMPRESSION: 1. Slightly increased perihilar and interstitial opacities which may reflect mild pulmonary edema or atypical/viral infection. 2. Similar trace left pleural effusion. 3. Right subclavian central venous catheter tip terminates at the cavoatrial junction. No pneumothorax. Labs on day of discharge: Laboratory Results - last 24 hr 01/01/23 01/01/23 01/01/23 16:24 17:05 20:13 POC Glucose 190 H 184 H 97 01/02/23 01/02/23 07:18 11:12 POC Glucose 142 H 149 H Discharge Plan Discharge Patient Disposition: Left Against Medical Advice Discharge Diagnosis: Hypoxia due to fluid overload due to ESRD, noncompliance with dialysis Signed out against medical advice Referrals: Shlomo Mcallister DO [Primary Care Provider] - 1 Week Discharge Medications: No Action (DME) lancets 28 gauge misc See Rx Instructions topical DIRECTED Qty: 100 2RF Rx Instructions: use one lancet as needed to test blood sugar (DME) Comfort EZ Pen [place] 33 gauge x 5/16 needle See Rx Instructions .ROUTE .MEDSUPPLY Qty: 100 0RF Rx Instructions: tid prn (DME) FreeStyle Test Strip See Rx Instructions .ROUTE .MEDSUPPLY Qty: 100 2RF Rx Instructions: TID (DME) blood-glucose meter [FreeStyle Lite Meter] Kit See Rx Instructions .Route Qty: 1 0RF Rx Instructions: Patient to check blood sugar three times daily ferrous sulfate 325 mg (65 mg iron) tablet,delayed release (DR/EC) 325 mg PO DAILY 90 Days Qty: 90 0RF (DME) Shower chair See Rx Instructions .Route .MEDSUPPLY Qty: 1 0RF Rx Instructions: As directed (DME) Shower grab bars See Rx Instructions .Route .MEDSUPPLY Qty: 2 0RF Rx Instructions: As directed (DME) pen needle, diabetic [Comfort EZ Pen [place]] 31 gauge x 1/4 needle See Rx Instructions .Route Qty: 100 2RF Rx Instructions: Use with insulin pen to administer sliding scale medication TID atorvastatin 40 mg tablet 1 tab PO BEDTIME aspirin 81 mg tablet,delayed release (DR/EC) 1 tab PO DAILY amlodipine 10 mg tablet 1 tab PO DAILY insulin glargine [Lantus Solostar U-100 Insulin] 100 unit/mL (3 mL) insulin pen 40 unit SUBCUT DAILY cholecalciferol (vitamin D3) 50 mcg (2,000 unit) capsule 1 cap PO DAILY ledipasvir-sofosbuvir 90-400 mg tablet 1 tab PO DAILY carvedilol 6.25 mg Tablet 6.25 mg PO BID Qty: 60 0RF Protocol: Hold for SBP/HR < HOLD for SBP < : 90 HOLD for HR < : 60 losartan 50 mg tablet 50 mg PO DAILY Qty: 30 0RF insulin lispro 100 unit/mL insulin pen 10 - 22 unit subcut TID pantoprazole 20 mg tablet,delayed release (DR/EC) 20 mg PO QAM (DME) pen needle, diabetic 32 gauge x 1/4 needle See Rx Instructions subcut .MEDSUPPLY Qty: 50 Rx Instructions: As directed (DME) blood sugar diagnostic Strip See Rx Instructions Not Applicable DIRECTED Qty: 10 Rx Instructions: As directed Discharge Orders: Discharge Order (Routine); Ordered 01/02/23 Ordered By: Yeimi Ratliff Care Plan Goals: Avoid and disability Health Concerns: Hypoxia due to fluid overload due to ESRD, noncompliance with dialysis Signed out against medical advice Plan of Treatment: Return to the hospital as soon as possible Assessment: See Discharge Summary. Discharge Date/Time: 01/02/23 12:57
== END 2023-01-02 12:57 | disposition left against medical advice (07) | DRG 291 ==
LOC: HO.ED 12-29 03:11 → HO.EDOVER 12-29 03:52 → HO.S3 12-29 04:48
PROVIDERS: Hospitalist; Admitting Provider Student in an Organized Health Care Education/Training Program; Emergency Provider Internal Medicine; PCP Internal Medicine Hospice and Palliative Medicine; Visit Provider Family Medicine
DX: I13.2 Hypertensive heart and chronic kidney disease with heart failure and with stage 5 chronic kidney disease, or end stage renal disease (principal); I50.23 Acute on chronic systolic (congestive) heart failure; N18.6 End stage renal disease; J96.01 Acute respiratory failure with hypoxia; I16.1 Hypertensive emergency; I24.8 Other forms of acute ischemic heart disease; Z99.2 Dependence on renal dialysis; E13.22 Other specified diabetes mellitus with diabetic chronic kidney disease; E13.649 Other specified diabetes mellitus with hypoglycemia without coma; E78.2 Mixed hyperlipidemia; F39 Unspecified mood [affective] disorder; F17.210 Nicotine dependence, cigarettes, uncomplicated; B19.20 Unspecified viral hepatitis C without hepatic coma; Z20.822 Contact with and (suspected) exposure to COVID-19; N25.0 Renal osteodystrophy; G31.84 Mild cognitive impairment of uncertain or unknown etiology; Z91.158 Patient's noncompliance with renal dialysis for other reason; Z91.148 Patient's other noncompliance with medication regimen for other reason; Z71.6 Tobacco abuse counseling; Z79.4 Long term (current) use of insulin; Z79.82 Long term (current) use of aspirin; Z79.899 Other long term (current) drug therapy
CPT/HCPCS: 36415; 71045; 80048; 80053; 82947; 83880; 84484; 85025; 87635; 90935; 90999; 93005; 97162; 99285; J1643; J1650; J1940